=== PATIENT | male | born 1955 | race Caucasian/White ===

== ENCOUNTER → 2023-03-20 | Outpatient (CLI) | payer OTHER ==
[2023-03-20 09:57] LABS: African American GFR (CKD) >90 (>60 ml/min/1.73 sqM); Blood Urea Nitrogen 14 mg/dL (9-20); Non-African American GFR(CKD) >90 (>60 ml/min/1.73 sqM)
--- NOTE | 2023-03-20 12:34 | CT ---
EXAMINATION TYPE: CT abdomen pelvis w con DATE OF EXAM: 03/20/2023 COMPARISON: None. HISTORY: irregular bowel changes CT DLP: 1486 mGycm, Automated Exposure Control for Dose Reduction was Utilized. CONTRAST: CT scan of the abdomen and pelvis is performed with oral and with IV Contrast, patient injected with 100 mL of Isovue 300. FINDINGS: LUNG BASES: No significant abnormality is appreciated. LIVER/GB: No significant abnormality is appreciated. PANCREAS: No significant abnormality is seen. SPLEEN: No significant abnormality is seen. ADRENALS: No significant abnormality is seen. KIDNEYS: Symmetric cortical medullary uptake and excretion without hydronephrosis seen bilaterally. BOWEL: Oral contrast reaches level of the proximal transverse colon. No suspicious small or large bow el dilatation. Normal contrast-filled appendix. Slightly redundant sigmoid colon PROSTATE/SEMINAL VESICLES: Mildly enlarged prostate. Correlate for underlying BPH. LYMPH NODES: No greater than 1cm abdominal or pelvic lymph nodes are appreciated. OSSEOUS STRUCTURES: Moderate disc space narrowing with vacuum disc phenomenon L4-L5 and L5-S1 levels. Bridging osteophytes anteriorly near the thoracolumbar junction. Facet arthropathy lower lumbar leve ls. Moderate axial joint space loss and acetabular spurring of both hips OTHER: Moderate calcified plaque of the aorta extends into branch vessels. IMPRESSION: No bowel obstruction. No acute findings are evident.
--- NOTE | 2023-03-20 14:29 | NM ---
EXAMINATION TYPE: NM bone scan whole body DATE OF EXAM: 03/20/2023 1:39 PM CLINICAL INDICATION:Male, 67 years old with history of C61; COMPARISON: CT abdomen pelvis 03/20/2023 TECHNIQUE: Intravenous administration 22.8 mCi Tc 99m MDP followed by multiple scintigraphic images o f the appendicular and axial skeleton. Small [id number] chest abdomen and pelvis were obtained. Images acquired 4 hours post injection. FINDINGS: No abnormal uptake is identified within the appendicular or axial skeleton to suggest metastatic dise ase. There is increased uptake within the bilateral shoulder, left sternoclavicular, and sacroiliac joints consistent with degenerative changes. No other photopenic areas or areas of increased activity are identified. Physiologic radiotracer activity is demonstrated in the kidneys and bladder. IMPRESSION: 1. Nothing to suggest metastatic disease.
== END | disposition home or self-care (01) ==
LOC: RADNMMAIN 08:27
PROVIDERS: ATTEND Urology
DX: C61 Malignant neoplasm of prostate (principal)
CPT/HCPCS: 36415; 74177; 78306; 82565; 84520

== ENCOUNTER → 2023-04-25 | Outpatient (CLI) | payer OTHER ==
--- NOTE | 2023-04-25 10:27 | XR ---
EXAMINATION TYPE: XR chest 2V DATE OF EXAM: 04/25/2023 10:21 AM COMPARISON: None TECHNIQUE: XR chest 2V Frontal and lateral views of the chest. CLINICAL INDICATION:Male, 68 years old with history of Z01.818 ENCOUNTER FOR OTHER PREPROCEDURAL EXAM INATION; FINDINGS: Lungs/Pleura: There is no evidence of pleural effusion, focal consolidation, or pneumothorax. Questio nable 2.5 cm right midlung nodular density only visualized on the frontal view. Right mid to lower carlos ng linear scarring and/or atelectasis. Pulmonary vascularity: Unremarkable. Heart/mediastinum: Cardiomediastinal silhouette is unremarkable. Musculoskeletal: No acute osseous pathology. IMPRESSION: 1. No acute cardiopulmonary disease/process. 2. Questionable 2.5 cm right midlung nodular density only visualized on the frontal view. Further ev aluation with CT chest is recommended.
[2023-04-25 17:03] LABS: Basophils # (A) 0.07 X 10*3/uL (0.00-0.10); Basophils % (A) 0.9 %; Eosinophils # (A) 0.18 X 10*3/uL (0.04-0.35); Eosinophils % (A) 2.4 %; HCT 43.8 % (39.6-50.0); HGB 13.8 d/dL (12.0-15.0); Lymphocytes # (A) 1.64 X 10*3/uL (0.90-5.00); Lymphocytes % (A) 21.6 %; MCHC 31.5 d/dL (32.0-37.0); MCV 98.4 FL (80.0-97.0); Mean Platelet Volume 8.7 FL (9.5-12.2); Monocytes # (A) 0.62 X 10*3/uL (0.20-1.00); Monocytes % (A) 8.1 %; NRBC Per 100 WBC 0 X 10*3/uL (0.00-0.01); Neutrophils # (A) 5.08 X 10*3/uL (1.80-7.70); Neutrophils % (A) 66.7 %; Platelet Count 328 X 10*3/uL (140-440); RBC 4.45 X 10*6/uL (4.40-5.60); RDW 13.5 % (11.5-14.5); WBC 7.61 X 10*3/uL (4.50-10.00)
[2023-04-25 17:08] LABS: BUN/Creat Ratio 23.29 Ratio (12.00-20.00); Blood Urea Nitrogen 16.3 mg/dL (9.0-27.0); Calcium 9.6 mg/dL (8.7-10.3); Carbon Dioxide 30.2 mmol/L (21.6-31.8); Chloride 103 mmol/L (96-109); Glucose 88 mg/dL (70-110); Potassium 4.4 mmol/L (3.5-5.5); Sodium 143 mmol/L (135-145)
[2023-04-25 17:45] LABS: Appearance,Urine Cloudy (Clear); Bilirubin,Urine Small (Negative); Blood,Urine Trace (Negative); Color,Urine Dark Yellow (Yellow); Ketones,Urine Trace (Negative); Nitrite,Urine Negative (Negative); PH, Urine 6.5; Specific Gravity,Urine 1.026 (1.001-1.030)
[2023-04-25 17:46] LABS: Bacteria,Urine None Seen (None Seen)
== END | disposition home or self-care (01) ==
LOC: LABPAT 09:20
PROVIDERS: ATTEND Urology
DX: Z01.818 Encounter for other preprocedural examination (principal); C61 Malignant neoplasm of prostate; R31.29 Other microscopic hematuria
CPT/HCPCS: 71046; 80048; 81001; 85025; 87086

== ENCOUNTER 2023-05-02 10:00 | Day surgery (SDC) | payer OTHER ==
--- NOTE | 2023-05-02 07:49 | P.HPIHPCON ---
History of Present Illness H&P Date: 05/01/23 Chief Complaint: Prostate cancer This is a 68-year-old male with history of high risk [facility] 7(4+3) prostate cancer. Option of a robotic radical prostatectomy versus radiation therapy was discussed with him in detail. He agreed to proceed with a robotic radical prostatectomy. Aware of the risk which includes but not limited to bleeding, infection, urinary incontinence, erectile dysfunction, injury to nearby organs. Risk of anesthesia was also discussed with him. Aware of risk of cancer recurrence and potential of needing additional treatments. Discussed with him higher risk of cancer recurrence given his high volume disease. Discussed also the need a postoperative surveillance. He understood all the risk and agreed to proceed Consent for Procedure: I have explained the operation/procedure to the patient, including the risks, benefits, side effects, alternative therapies (including not receiving the proposed treatment or service), the likelihood of the patient achieving his/her goals, and potential recuperation problems for the procedure/sedation/analgesia, as well as any blood products, if indicated. I also explained to the patient the risks, benefits and side effects of the alternatives, as well as the risks related to not receiving the proposed procedure, care, treatment, or services. Past Medical History Past Medical History: Cancer, COPD, Hyperlipidemia, Hypertension, Osteoarthritis (OA), Prostate Disorder Additional Past Medical History / Comment(s): new hx. prostate cancer, colitis, hospitalized 2020 w/COPD exacerbation, was d/c w/oxygen but hasn't used for couple years History of Any Multi-Drug Resistant Organisms: None Reported Additional Past Surgical History / Comment(s): cataracts removed, colonoscopy Past Anesthesia/Blood Transfusion Reactions: Previous Problems w/ Anesthesia Additional Past Anesthesia/Blood Transfusion Reaction / Comment(s): woke during cataract surg. Smoking Status: Former smoker - Past Family History Mother Family Medical History: Cancer Medications and Allergies Home Medications Medication Instructions Recorded Confirmed Type Atorvastatin Calcium 10 mg PO HS 04/25/23 04/25/23 History Losartan Potassium [Cozaar] 25 mg PO DAILY 04/25/23 04/25/23 History Multivitamins, Thera [Multivitamin 1 tab PO DAILY 04/25/23 04/25/23 History (formulary)] sulfaSALAzine [Sulfasalazine] 1,000 mg PO BID 04/25/23 04/25/23 History Allergies Allergy/AdvReac Type Severity Reaction Status Date / Time No Known Allergies Allergy Verified 04/25/23 10:36 Surgical - Exam - General no distress, no pain - Eyes normal ocular movement, no pale - ENT normal nares, normal mucosa - Respiratory normal expansion, normal respiratory effort - Abdomen Abdomen: soft, non tender - Psychiatric oriented to time, oriented to person, oriented to place Assessment and Plan Assessment: OR for Robotic radical prostatectomy and pelvic lymph node dissection
[~2023-05-02 10:00] MED LIST: HEPARIN SODIUM,PORCINE/PF 5,000 UNIT/0.5 ML SYRINGE SQ PRN
[2023-05-02] MEDS ORDERED: LIDOCAINE 1% (10MG/ML) FOR IV START INTRADERMA PRN (10:05)
[2023-05-02] MEDS ORDERED: LACTATED RINGERS 1,000 ML IV SCH (10:05)
[2023-05-02] MEDS ORDERED: ONDANSETRON 4 MG/2 ML VIAL IVP ONE (10:05)
[2023-05-02] MEDS ORDERED: DEXAMETHASONE SOD PHOSPHATE 4 MG/ML 1 ML VIAL IV ONE (10:05)
[2023-05-02] MEDS ORDERED: droPERidol 5 MG/2 ML VIAL IVP ONE (10:05)
[2023-05-02] MEDS ORDERED: MIDAZOLAM 2 MG/2 ML VIAL IVP ONE (11:09)
--- NOTE | 2023-05-02 11:24 | P.ANPRN ---
Procedure Note - Anesthesia - Nerve Block Performed Bilateral Erector Spinae Single Time Out Performed: Yes Date of Procedure: 05/02/23 Procedure Start Time: :08 Procedure Stop Time: :17 Location of Patient: PreOp Indication: Acute Post-Operative Pain, Requested by Surgeon Specifically requested for management of pain by DrSanchez: Haresh Mccormick Sedation Type: Sedate with meaningful contact maintained Preparation: Sterile Prep Position: Prone Needle Types: Pajunk Needle Gauge: 21 Ultrasound used to visualize needle placement: Yes Ultrasound used to observe medication spread: Yes Injectate: 0.5% Ropivacaine (see comment for volume) (30 mL + Decadron 8 mg) Blood Aspirated: No Pain Paresthesia on Injection Noted: No Resistance on Injection: Normal Image Stored and Saved: Yes Events: Uneventful and Well Tolerated
[2023-05-02] MEDS ORDERED: ONDANSETRON 4 MG/2 ML VIAL IVP PRN (11:41)
[2023-05-02] MEDS ORDERED: HYDROcodone/APAP 5-325MG 1 EACH TAB PO PRN (11:42)
[2023-05-02] MEDS ORDERED: ROPIVACAINE 5 MG/ML 30 ML VIAL ONE (12:30)
[2023-05-02] MEDS ORDERED: MIDAZOLAM 2 MG/2 ML VIAL ONE (12:30)
[2023-05-02] MEDS ORDERED: SUCCINYLCHOLINE CHLORIDE 200 MG/10 ML VIAL IV ONE (12:30)
[2023-05-02] MEDS ORDERED: fentaNYL (PF) 50 MCG/ML 2 ML AMP ONE (12:30)
[2023-05-02] MEDS ORDERED: GLYCOPYRROLATE 0.2 MG/ML 2 ML VIAL ONE (12:30)
[2023-05-02] MEDS ORDERED: SODIUM CHLORIDE 0.9% (PF) 10 ML VIAL ONE (12:30)
[2023-05-02] MEDS ORDERED: NEOSTIGMINE 1 MG/ML 10 ML VIAL ONE (12:30)
[2023-05-02] MEDS ORDERED: PHENYLEPHRINE-0.9% NACL SYG 1,000 MCG/10 ML SYRINGE ONE (12:30)
[2023-05-02] MEDS ORDERED: ONDANSETRON 4 MG/2 ML VIAL ONE (12:30)
[2023-05-02] MEDS ORDERED: PROPOFOL 10 MG/ML 20 ML VIAL IV ONE (12:30)
[2023-05-02] MEDS ORDERED: KETAMINE 10 MG/ML 20 ML VIAL ONE (12:30)
[2023-05-02] MEDS ORDERED: DEXAMETHASONE SOD PHOSPHATE 4 MG/ML 1 ML VIAL ONE (12:30)
[2023-05-02] MEDS ORDERED: LIDOCAINE 2% INJ 20 MG/ML (2 ML VIAL) ONE (12:30)
[2023-05-02] MEDS ORDERED: ROCURONIUM 10 MG/ML (5 ML VIAL) IV ONE (12:30)
[2023-05-02] MEDS ORDERED: BUPIVACAINE (PF) 0.25% 30 ML VIAL SQ ONE ×3 (13:18→16:09)
[2023-05-02] MEDS ORDERED: LACTATED RINGERS 1,000 ML IV ONE (16:08)
--- NOTE | 2023-05-02 16:20 | P.OP ---
Date of Procedure: 05/02/23 Preoperative Diagnosis: prostate cancer Postoperative Diagnosis: same Procedure(s) Performed: Robotic-assisted radical prostatectomy with pelvic lymph node dissection Implants: none Anesthesia: NADEENA Surgeon: Haresh Mccormick Hydrology Teacher #1: Say Payne Estimated Blood Loss (ml): 150 Pathology: other (Prostate, bilateral seminal vesicle, bilateral pelvic lymph nodes,, bladder neck margin) Condition: stable Disposition: PACU Indications for Procedure: This is a 68-year-old male with history of high risk [facility] 7(4+3) prostate cancer. Option of a robotic radical prostatectomy versus radiation therapy was discussed with him in detail. He agreed to proceed with a robotic radical prostatectomy. Aware of the risk which includes but not limited to bleeding, infection, urinary incontinence, erectile dysfunction, injury to nearby organs. Risk of anesthesia was also discussed with him. Aware of risk of cancer recurrence and potential of needing additional treatments. Discussed with him higher risk of cancer recurrence given his high volume disease. Discussed also the need a postoperative surveillance. He understood all the risk and agreed to proceed Operative Findings: Multiple enlarged pelvic lymph nodes, evidence of extraprostatic extension invasion into the rectum along the right apex. evidence of bladder neck invasion Description of Procedure: After preoperative antibiotics were started, the patient was taken to the operating room. Anesthesia was induced and the patient was placed in a supine position, with adequate padding of the pressure points, shoulders, back, legs and arms. He was then prepped and draped in the standard fashion. A critical pause was performed using two patient identifiers. A 16F batista catheter was placed to gravity drainage. A pneumo-peritoneum was created with placement of a Veress needle to 20 mm Hg without complication, and a 8 Fr trocar was placed above the umbillicus. Under direct vision a 8mm robotic ports was placed lateral to each rectus slightly below the camera port. The left iliac fossa 8mm port was placed. The right refinery operator assistant right iliac fossa 12mm port and right paramedian 5mm portwere placed. After the patient was placed in the trendelenberg position, the robot was then docked to the 8mm robotic ports and then each robotic arm and tower was checked in relation to the patient's legs and hands to avoid inadvertent compression. The peritoneal cavity was inspected. An inverted U-shaped incision began laterally to the left medial umbilical ligament and extended high across the midline to the right umbilical ligament. The limbs of the "U" extended to the level of the vasa on both sides. We next developed the preperitoneal space and the space of Retzius. Cautery was used to dissected the bladder away from the prostate. After the anterior bladder neck was incised and the bladder entered the the posterior bladder neck was exposed and the ureteral orifces identified. There was evidence of bladder neck invasion, further tissue was resected and sent as a bladder neck margin of note the resection was carried down to the trigone and further tissue could not be resected given the risk of injury to the ureteral orifice ease The posterior bladder neck was then incised and dissected away from the prostate. Of note the prostate was fairly adherent to the rectum, there was significant amount of inflammatory fat stuck to the prostate The vas and the seminal vesicles were now exposed and dissected to their insertions into the prostate and were not spared. The posterior layer of the Denonvillier's fascia was incised to enter rupinder the plane between prostate and perirectal fat. Along the right apex there was evidence of extension of prostate cancer into the rectum. The prostate was dissected sharply off of the rectum, there was no entry into the rectum. Each lateral pedicle was controlled with clips and cautery for hemostasis. No nerve preservation was performed . The puboprostatic ligament was incised where it inserted into the apex of the prostate and a plane between urethra and dorsal venous complex developed to expose the anterior urethral surface. The anterior wall of the urethra was transected with the cut setting a few millimeters distal to the apex of the prostate. The dorsal vein was ligated using 3-0 V lock extended pelivic lymph node dissection was performed bilateral obturator and external iliac lymph node packets were carefully dissected after careful visualization of the hypogastric artery and obturator nerve. There was careful attention paid to hemostasis with judicious use of cautery. The bilateral ureter was identified and not injured there were multiple enlarged pelvic lymph nodes. The area along where there was evidence of rectal invasion was reinforced using 2-0 Vicryl in figure of eight fashion The urethrovesical anastomosis was performed . the posterior denovillers was reapproximated using 3-0 V lock. A 9and 9 inch 3-0 V-Lock suture was used to anastomose the urethra and bladder, starting at the 6:00 posterior position. Mucosa was secured in every stitch, to ensure a mucosa to mucosa anastomosis. The stitch was regularly cinched and the anastomosis tightened. Care was taken to not violate the ureteral orifices. The Batista catheter was advanced, the bladder filled, and the anastomosis was tested, as described above. Anastomsis was watertight at 150 mL The periumbilical fascia was closed with 1-0-PDS suture in running fashion. All ports were closed with a subcuticular 4-0 monocryl and Dermabond. Sponge, instrument, and needle counts were correct at the end of the case x2. All specimens including prostate and lymph nodes were sent to pathology for diagnosis and will be available in a week.
[2023-05-02] MEDS: HYDROmorphone 0.5 MG/0.5 ML SYRINGE IVP PRN ×2 (17:04→17:12)
[2023-05-02] MEDS: HYDROmorphone 1 MG/ML 1 ML SYRINGE IVP PRN (18:06)
[2023-05-02] MEDS: KETOROLAC 15 MG/ML 1 ML VIAL IVP SCH ×2 (18:22→19:52)
[2023-05-02] MEDS: HEPARIN SODIUM,PORCINE/PF 5,000 UNIT/0.5 ML SYRINGE SQ SCH (18:22)
[2023-05-02] MEDS: D5-0.45% NACL WITH KCL 20MEQ/L 1,000 ML IV SCH (18:27)
[2023-05-02] MEDS: ATORVASTATIN 10 MG TAB PO SCH (21:41)
[2023-05-03] MEDS: HEPARIN SODIUM,PORCINE/PF 5,000 UNIT/0.5 ML SYRINGE SQ SCH ×3 (00:22→17:13)
[2023-05-03] MEDS: HYDROmorphone 1 MG/ML 1 ML SYRINGE IVP PRN (00:40)
[2023-05-03] MEDS: KETOROLAC 15 MG/ML 1 ML VIAL IVP SCH ×4 (02:15→18:52)
[2023-05-03] MEDS: D5-0.45% NACL WITH KCL 20MEQ/L 1,000 ML IV SCH ×3 (03:33→18:55)
[2023-05-03] MEDS: LOSARTAN 25 MG TAB PO SCH (08:11)
[2023-05-03] MEDS: ATORVASTATIN 10 MG TAB PO SCH (21:54)
[2023-05-04] MEDS: KETOROLAC 15 MG/ML 1 ML VIAL IVP SCH ×2 (01:17→08:44)
[2023-05-04] MEDS: HEPARIN SODIUM,PORCINE/PF 5,000 UNIT/0.5 ML SYRINGE SQ SCH ×2 (01:18→08:45)
[2023-05-04] MEDS: D5-0.45% NACL WITH KCL 20MEQ/L 1,000 ML IV SCH ×2 (03:56→11:55)
[2023-05-04 07:54] VITALS: BP 123/79; PULSE 81; RESP 18; TEMP 98.3
[2023-05-04] MEDS: LOSARTAN 25 MG TAB PO SCH (08:44)
--- NOTE | 2023-05-04 09:05 | P.DS ---
Providers Attending physician: Haresh Mccormick MD Primary care physician: Stated None Hospital Course: The patient underwent an uneventful tavia assisted rad prostatectomy 05/02/[address] mccormick. His post op course was uneventful. He will be d/cd home with the lynne and fu with Dr mccormick in 10 days for cath removal and path report is pending Patient Condition at Discharge: Good Plan - Discharge Summary Discharge Rx Participant: Yes New Discharge Prescriptions: No Action Losartan Potassium [Cozaar] 25 mg PO DAILY Atorvastatin Calcium 10 mg PO HS Multivitamins, Thera [Multivitamin (formulary)] 1 tab PO DAILY sulfaSALAzine [Sulfasalazine] 1,000 mg PO BID Discharge Medication List Atorvastatin Calcium 10 mg PO HS 04/25/23 [History] Losartan Potassium [Cozaar] 25 mg PO DAILY 04/25/23 [History] Multivitamins, Thera [Multivitamin (formulary)] 1 tab PO DAILY 04/25/23 [History] sulfaSALAzine [Sulfasalazine] 1,000 mg PO BID 04/25/23 [History] Follow up Appointment(s)/Referral(s): Haresh Mccormick MD [STAFF PHYSICIAN] - 10 Days (home with lynne and alf appoinment that office made for patient post op)
== END 2023-05-04 14:22 | disposition home or self-care (01) ==
LOC: OR 10:00 → 5NMEDONC 16:22 → OR 05-04 14:22
PROVIDERS: ATTEND Urology
DX: C61 Malignant neoplasm of prostate (principal); G89.18 Other acute postprocedural pain; I10 Essential (primary) hypertension; E78.5 Hyperlipidemia, unspecified; J44.1 Chronic obstructive pulmonary disease with (acute) exacerbation; F12.90 Cannabis use, unspecified, uncomplicated; M19.90 Unspecified osteoarthritis, unspecified site; Z85.46 Personal history of malignant neoplasm of prostate; Z79.899 Other long term (current) drug therapy; Z87.19 Personal history of other diseases of the digestive system; Z87.891 Personal history of nicotine dependence
CPT/HCPCS: 38571; 55866; 64999; S2900; 86850; 86900; 86901

== ENCOUNTER → 2023-05-31 | Outpatient (CLI) | payer MEDICARE ==
[2023-05-31 07:07] LABS: African American GFR (CKD) >90 (>60 ml/min/1.73 sqM); Blood Urea Nitrogen 19 mg/dL (9-20); Non-African American GFR(CKD) 85 (>60 ml/min/1.73 sqM)
--- NOTE | 2023-05-31 08:33 | CT ---
EXAMINATION TYPE: CT chest w con DATE OF EXAM: 05/31/2023 COMPARISON: Radiograph 04/25/2023 HISTORY: 68-year-old male C61, Prostate Cancer TECHNIQUE: Contiguous axial scanning of the chest after the administration of 100 ml mL of Isovue 300 . Coronal/sagittal reconstructions performed. CT DLP: 378.20mGycm. Automatic exposure control utilized for a dose reduction. FINDINGS: 1 cm hypodense nodule left lobe of the thyroid gland. Heart normal size without pericardial effusion. LAD and RCA coronary calcifications are present. Mild atherosclerotic arch calcifications with the majority also branching anatomy. Ectatic descending thoracic aorta 3.1 cm. Borderline sized 1.0 cm lower right paratracheal lymph node. No thoracic lymphadenopathy otherwise se en. Mild bilateral gynecomastia. Mild diffuse bronchial wall thickening. Some strandy areas of scarring or atelectasis in the lungs. There is a 2.5 cm slightly spiculated mass lateral right midlung. Moderate centrilobular emphysema es pecially in the upper lungs Nonspecific 4 mm medial left upper lobe pulmonary nodule, axial image 15. Small hiatal hernia. Levoconvex curvature upper lumbar spine. Moderate to advanced degenerative changes especially mid to lower thoracic spine. [facility] mid to lower t horacic spine. Additional bridging anterior endplate spondylosis T12-L2 levels. Grade 1 anterolisthes is T11-T12. IMPRESSION: 1. COPD with moderate emphysema. 2. A slightly spiculated 2.5 cm lateral right midlung mass. Correlate for potential primary lung canc er. A borderline enlarged 1 cm low right paratracheal lymph node is nonspecific and may be reactive. Consider further PET CT evaluation. 3. Additional nonspecific 4 mm medial left upper lobe pulmonary nodule can be reassessed at follow-up . 4. 1 cm left thyroid lobe nodule. Thyroid ultrasound to further evaluate. 5. Coronary artery disease with LAD and RCA coronary artery calcifications. 6. Small hiatal hernia.
== END | disposition home or self-care (01) ==
LOC: RADCTMAIN 06:03
PROVIDERS: ATTEND Urology
DX: C61 Malignant neoplasm of prostate (principal); J43.2 Centrilobular emphysema; I25.10 Atherosclerotic heart disease of native coronary artery without angina pectoris; K44.9 Diaphragmatic hernia without obstruction or gangrene; R91.1 Solitary pulmonary nodule
CPT/HCPCS: 82565; 84520; 71260; 36415; Q9967

== ENCOUNTER → 2023-07-13 | Outpatient (CLI) | payer OTHER ==
--- NOTE | 2023-07-14 22:19 | PE ---
EXAMINATION TYPE: PET CT fusion skull to thigh DATE OF EXAM: 07/13/2023 CLINICAL INDICATION:Male, 68 years old with history of R91.1 SOLITARY PULMONARY NODULE; TECHNIQUE: Following the intravenous administration of 11.75 mCi of F-18 FDG, whole body images are performed from the skull base to the midthigh. Images are reviewed on the computer in the coronal, axial, and sagittal planes. Reconstructed rotating images are created on independent workstation and reviewed on the computer. A non-contrast CT is performed in conjunction with the PET scan. Glucose level 95 mg/dL CT DLP: 495 mGycm, Automated exposure control for dose reduction was used. COMPARISON: CT 05/31/2023, 03/20/2023, PET/CT None, FINDINGS: Mediastinal SUV mean is 1.7. Hepatic parenchyma SUV mean is 2.5. SKULL BASE AND NECK: No suspicious radiotracer activity. CHEST, MEDIASTINUM, AND HILAR REGION: * Right upper lung pulmonary nodule measuring 2.5 x 2.2 cm Max SUV 11.3. * Right low paratracheal lymph node measuring 11 mm in short axis max SUV 2.5. * No additional suspicious FDG activity visualized. * ABDOMEN AND PELVIS: No suspicious radiotracer activity. MUSCULOSKELETAL STRUCTURES: No suspicious radiotracer activity. OTHER CT: Atherosclerosis of the arterial vasculature including the coronary arteries. Fat-containing buccal hernia. Moderate amount of stool within the right colon. The appendix appears normal. The pro state gland appears surgically absent. Moderate paraseptal and centrilobular emphysema changes. Moder ate coronary artery calcifications. Small hiatal hernia. IMPRESSION: Right upper lung pulmonary nodule measuring up to 2.5 cm with FDG uptake compatible with malignancy. Right low paratracheal lymph node with mildly elevated FDG activity which is suspicious for early met astatic disease. No additional lymphadenopathy identified.
== END | disposition home or self-care (01) ==
LOC: RADPETMAIN 08:20
PROVIDERS: ATTEND Internal Medicine Critical Care Medicine
DX: R91.1 Solitary pulmonary nodule (principal)
CPT/HCPCS: 78815; A9552

== ENCOUNTER 2023-08-01 10:36 | Day surgery (SDC) | payer OTHER ==
[2023-07-29 12:38] VITALS: BMI 26.6
[~2023-08-01 10:36] MED LIST changes: +DEXAMETHASONE SOD PHOSPHATE 4 MG/ML 1 ML VIAL IV ONE; -HEPARIN SODIUM,PORCINE/PF 5,000 UNIT/0.5 ML SYRINGE SQ PRN; +LACTATED RINGERS 1,000 ML IV SCH; +LIDOCAINE 1% (10MG/ML) FOR IV START INTRADERMA PRN; +ONDANSETRON 4 MG/2 ML VIAL IVP ONE
--- NOTE | 2023-08-01 12:23 | CT ---
EXAMINATION TYPE: CT chest wo con DATE OF EXAM: 08/01/2023 COMPARISON: May 31, 2023 HISTORY: ion CT DLP: [address] of the chest was performed with lung and mediastinal window settings submitted. The la ck of contrast limits evaluation of the vascular, mediastinal and parenchymal structures including th e upper abdomen. LUNGS: Enlarging spiculated mass right upper lobe at the level of the right hilum which currently neymar sures 2.9 x 2.1 cm versus maximal measurement of 2.5 cm previously. No additional nodules seen. Upper lobe paraseptal emphysema seen greatest within the right upper lobe. MEDIASTINUM/PAULINA: Thoracic aorta is of normal caliber with limited evaluation given lack of contrast . The heart is not enlarged. No evidence for mediastinal mass. 1.2 cm enlarged lymph node lower rig ht paratracheal region. No adenopathy greater than 1 cm about the right hilum. Small hiatal hernia. UPPER ABDOMEN: No significant abnormality is seen. OTHER: No significant other abnormality. IMPRESSION: 1. Enlarging spiculated mass right upper lobe at the level of the right hilum which currently measur es 2.9 x 2.1 cm versus maximal measurement of 2.5 cm previously.
[2023-08-01] MEDS ORDERED: SUCCINYLCHOLINE CHLORIDE 200 MG/10 ML VIAL IV ONE (12:51)
[2023-08-01] MEDS ORDERED: NEOSTIGMINE 1 MG/ML 10 ML VIAL ONE (12:51)
[2023-08-01] MEDS ORDERED: PHENYLEPHRINE-0.9% NACL SYG 1,000 MCG/10 ML SYRINGE ONE (12:51)
[2023-08-01] MEDS ORDERED: PROPOFOL 10 MG/ML 20 ML VIAL IV ONE (12:51)
[2023-08-01] MEDS ORDERED: LIDOCAINE 1% INJ 10MG/ML (20 ML MDV) ONE (12:51)
[2023-08-01] MEDS ORDERED: GLYCOPYRROLATE 0.2 MG/ML 2 ML VIAL ONE (12:51)
[2023-08-01] MEDS ORDERED: MIDAZOLAM 2 MG/2 ML VIAL ONE (12:51)
[2023-08-01] MEDS ORDERED: fentaNYL (PF) 50 MCG/ML 2 ML AMP ONE (12:51)
[2023-08-01] MEDS ORDERED: ROCURONIUM 10 MG/ML (5 ML VIAL) IV ONE (12:51)
[2023-08-01 14:13] VITALS: RESP 16; TEMP 97.4
--- NOTE | 2023-08-01 14:23 | P.PCN ---
Date of Procedure: 08/01/23 Operative Findings: Preoperative Diagnosis: Right upper lobe mass Right hilar lymph node Postoperative Diagnosis: Right upper lobe mass Right hilar LN, 4R Procedure(s) Performed: Flexible bronchoscopy Robotic-assisted bronchoscopy and addition to radial ultrasound evaluation of the pulmonary mass Robotic-assisted transbronchial needle aspirate, transbronchial biopsies, transbronchial brushing of the right upper lobe mass iin addition to a bronchioloalveolar lavage EBUS TBNA of a station 4 [address] Anesthesia: NADEENA Surgeon: Myla Dinh Estimated Blood Loss (ml): 0 Pathology: other Condition: stable Disposition: same day Operative Findings: A physical exam was performed. Informed consent was obtained from the patient after explaining all the risks (pneumothorax, life threatening bleeding, infection and adverse effects due to medications), benefits and alternatives to the procedure which the patient appeared to understand and so stated. The patient was connected to the monitoring devices. General anesthesia was induced and the patient was intubated by anesthesia. A final timeout was performed and the procedure confirmed by the attending staff bronchoscopist. The bronchoscope was inserted and the airway examined. The flexible bronchoscope was removed and the robotic bronchoscope was inserted. Registration was completed. I next guided the robotic bronchoscope using the navigation system into the right upper lobe anterior segment. Once in proper position, the bronchoscope was frozen. The radial EBUS probe was placed through the bronchoscope and confirmed abnormal u/s images vs normal lung. A needle was placed through the working channel and under fluoroscopic guidance, we sampled the area thought to have the mass twice. We then used a cloud biopsy pattern with ultrasound confirmation for 2 additional passes with the needle. U/S evaluation was then used to reconfirm location. Forceps were next introduced through working channel and extended the appropriate distance and 3 transbronchial biopsies were performed using fluoroscopic guidance. The u/s probe was then reinserted to confirm location. When confirmed this process was repeated for a total of 6 transbronchial biopsies. After reassessment with EBUS, a brush was placed through the extendable working channel for 1 pass with fluoroscopic guidance. U/S evaluation was then used to confirm location. 40ml of saline was then instilled into the area of the lesion. The robotic bronchoscope was removed and the airway inspected with a flexible bronchoscope and 10 ml of effluent from the BAL was collected. The aspirate was bloody and ultimately declotted and based on that, the sample was discarded. Fluoroscopic check for pneumothorax was negative upon completion of the procedure. There was 0 ml blood loss with the procedure. Following that, the endobronchial ultrasound was inserted for mediastinal lymph node evaluation. A complete examination is grossly patient's was done. The patient was found to have a 11 x 8 mm subcarinal lymph node. Using a 22-gauge needle, transbronchial needle aspirate of the subcarinal station 4R lymph node was done. A total of 2 passes were obtained without any complications. Endobronchial ultrasound was removed. Flex. bronchoscope was inserted and regular suctioning was done. At the completion of the procedure, no residual secretions or bloody material within the airway. The bronchoscope was removed. The patient was extubated. FINDINGS: 1.The airways appeared normal 2 Successful navigation, ultrasonographic identification, and biopsies of right upper lobe pulmonary mass 3.The the radial ultrasound view was (Concentric/Eccentric)}. 4 subcarinal lymph node, station 4 R measuring 11 x 8 mm in size. RECOMMENDATIONS: Await pathology and cytology results The referring physician will be alerted to the results when available. The patient was advised to follow up with the referring physician with the biopsy results Patient will be called with results.
[2023-08-01 15:02] VITALS: BP 150/76; PULSE 66
--- NOTE | 2023-08-01 15:04 | XR ---
EXAMINATION TYPE: XR chest 1V DATE OF EXAM: 08/01/2023 COMPARISON: 04/25/2023 HISTORY: 68-year-old male post biopsy TECHNIQUE: Single frontal view of the chest is obtained. FINDINGS: Heart upper limits of normal in size. Hyperinflation. Some strandy density at the right lo wer lung could represent atelectasis or scarring. The nodular density at the periphery of the right m idlung is slightly larger at 3.2 cm now versus 2.5 cm back in 04/25/2023. No appreciable pneumothorax or pleural effusion. IMPRESSION: COPD with slight interval increase in size of the right mid lung nodule at 3.2 cm versus 2.5 cm on . No appreciable pneumothorax.
--- NOTE | 2023-08-01 19:11 | FL ---
EXAMINATION TYPE: FL bronchoscopy DATE OF EXAM: 08/01/2023 FLUOROSCOPY fl time 39.5 dap 1.4166 mGycm2 Right upper lobe bx with Dr. Dinh. bronch with ion 4 images provided
== END 2023-08-01 15:27 | disposition home or self-care (01) ==
LOC: ORWHC2ENDO 10:36
PROVIDERS: ATTEND Internal Medicine Critical Care Medicine
DX: C34.11 Malignant neoplasm of upper lobe, right bronchus or lung (principal); J44.9 Chronic obstructive pulmonary disease, unspecified; I10 Essential (primary) hypertension; E78.5 Hyperlipidemia, unspecified; K52.9 Noninfective gastroenteritis and colitis, unspecified; F12.90 Cannabis use, unspecified, uncomplicated; Z79.51 Long term (current) use of inhaled steroids; Z79.899 Other long term (current) drug therapy; Z85.46 Personal history of malignant neoplasm of prostate
CPT/HCPCS: 88305; 88173; 88342; 87070; 87205; 87116; 87102; 87206; 71045; 71250; 31628; 31633; 31623; 31624; 31652; 31654; J2250; J0330; J1100; J2710; J2405; J2001; J3010; J2704; J2371; S2900

== ENCOUNTER → 2023-08-13 | Outpatient (CLI) | payer MEDICARE ==
--- NOTE | 2023-08-13 15:07 | US ---
EXAMINATION TYPE: US thyroid st tissue head/neck DATE OF EXAM: 08/13/2023 COMPARISON: CT 05/31/2023 CLINICAL INDICATION: Male, 68 years old with history of E04.1 NONTOXIC SINGLE THYROID NODULE; Nodule. GLAND SIZE: Right Lobe: 6.6 x 1.9 x 2.8 cm Overall Parenchyma: heterogenous Left Lobe: 6.2 x 2.4 x 2.6 cm Overall Parenchyma: heterogenous Isthmus Thickness: 0.33 cm NODULES RIGHT: # of nodules measured on right: 0 LEFT: # of nodules measured on left: 2 1. 1.7 X 1.5 x 1.2 cm, upper mid, mixed cystic and solid, hypoechoic nodule, which is wider than ta ll, with smooth margins, with echogenic foci. TR 4 Prior size: no prior 2. 1.8 X 1.6 x 1.4 cm, mid mid, solid or almost completely solid, isoechoic nodule, which is wider than tall, with smooth margins, with echogenic foci. Prior size: no prior ISTHMUS: # of nodules measured in the isthmus: 0 Bilateral neck scanned, no evidence of lymphadenopathy. IMPRESSION: 1. Moderately suspicious nodule left lobe thyroid. Fine-needle aspiration recommended. 2017 ACR TI-RADS LEVEL: TR-RADS 4 - Moderately Suspicious: Follow if > 1 cm, FNA if > 1.5 cm *Highest TI-RADS level nodule reported
== END | disposition home or self-care (01) ==
LOC: RADUSWWP 13:10
PROVIDERS: ATTEND Family Medicine
DX: E04.2 Nontoxic multinodular goiter (principal)
CPT/HCPCS: 76536

== ENCOUNTER → 2023-08-14 | Outpatient (CLI) | payer MEDICARE | END | disposition home or self-care (01) | LOC: LABPAT 08:33 | PROVIDERS: ATTEND Thoracic Surgery (Cardiothoracic Vascular Surgery) | DX: Z01.812 Encounter for preprocedural laboratory examination (principal); R59.0 Localized enlarged lymph nodes | CPT/HCPCS: 85730 ==

== ENCOUNTER 2023-08-15 08:18 | Inpatient (IN) | payer MEDICARE ==
[~2023-08-15 08:18] MED LIST changes: +MIDAZOLAM 2 MG/2 ML VIAL IV PRN; +MIDAZOLAM 2 MG/2 ML VIAL IVP ONE; +fentaNYL (PF) 50 MCG/ML 2 ML AMP IV PRN; +fentaNYL (PF) 50 MCG/ML 2 ML AMP IVP ONE
[2023-08-15 09:12] LABS: Basophils % (A) 0 %; Eosinophils # (A) 0.2 k/uL (0-0.7); Eosinophils % (A) 3 %; HCT 37.2 % (39.0-53.0); Lymphocytes # (A) 1.6 k/uL (1.0-4.8); Lymphocytes % (A) 22 %; MCH 29.8 pg (25.0-35.0); MCHC 32.2 g/dL (31.0-37.0); MCV 92.5 fL (80.0-100.0); Mean Platelet Volume 7.2; Monocytes # (A) 0.4 k/uL (0-1.0); Monocytes % (A) 5 %; Neutrophils # (A) 4.8 k/uL (1.3-7.7); Neutrophils % (A) 66 %; Platelet Count 407 k/uL (150-450); RBC 4.02 m/uL (4.30-5.90); RDW 14.6 % (11.5-15.5); WBC 7.3 k/uL (3.8-10.6)
[2023-08-15] MEDS ORDERED: MIDAZOLAM 2 MG/2 ML VIAL IVP ONE (09:13)
[2023-08-15] MEDS ORDERED: fentaNYL (PF) 50 MCG/ML 2 ML AMP IVP ONE (09:13)
--- NOTE | 2023-08-15 09:28 | P.ANPRN ---
Procedure Note - Anesthesia - Invasive Line Left Arterial Line Date of Procedure: 08/15/23 Time of Procedure: 09:12 Location of Patient: PreOp Preparation: Sterile Prep, Sterile Dressing Arterial Line Location: Radial Ultrasound Used: No Needle Guage: 20g Narrative: Central line placement per sterile protocol utilized.
[2023-08-15] MEDS ORDERED: LIDOCAINE 1% INJ 10MG/ML (20 ML MDV) ONE ×2 (09:50→13:10)
[2023-08-15] MEDS ORDERED: ROCURONIUM 10 MG/ML (5 ML VIAL) IV ONE (09:50)
[2023-08-15] MEDS ORDERED: PROPOFOL 10 MG/ML 20 ML VIAL IV ONE (09:50)
[2023-08-15] MEDS ORDERED: SUCCINYLCHOLINE CHLORIDE 200 MG/10 ML VIAL IV ONE (09:50)
[2023-08-15] MEDS ORDERED: MIDAZOLAM 2 MG/2 ML VIAL ONE (09:50)
[2023-08-15] MEDS ORDERED: fentaNYL (PF) 50 MCG/ML 2 ML AMP ONE (09:50)
[2023-08-15] MEDS ORDERED: SUGAMMADEX SODIUM 200 MG/2 ML SDV IV ONE (09:50)
[2023-08-15] MEDS ORDERED: LACTATED RINGERS 1,000 ML IV ONE ×2 (11:21→12:30)
--- NOTE | 2023-08-15 11:49 | P.OP ---
Date of Procedure: 08/15/23 Preoperative Diagnosis: Lung Cancer Postoperative Diagnosis: Same Procedure(s) Performed: Mediastinoscopy Anesthesia: GOSIA Surgeon: Jhony Whalen System Manager #1: Nacho Javier Estimated Blood Loss (ml): 20 Pathology: other (R2 and R4 node) Condition: stable Disposition: PACU Indications for Procedure: This patient is a 68 year-old male with a >100 pack year history of smoking who was diagnosed with a RUL nodule. PET/CT revealed FDG avid RUL nodule in addition to R4 node. He underwent robotic assisted biopsy of the nodule which reveals NSCLC and EBUS was performed on the R4 node. This specimen was hypocellular and so biopsy of the R4 node on EBUS was considered inadequate. In order to rule out metastatic disease we recommended. Operative Findings: R2 and R4 nodes easily found. Small amount of air leak noted in ventilator after removal of R4 node consistent with micropuncture of trachea. Controlled with progel and fibrillar packing. Strap muscle closed and patient extubated. Description of Procedure: The patient underwent arterial line placement in the pre-operative suite. He was brought back to the operating room and placed in the supine position. General endotracheal anesthesia was induced and the patient was intubated with a single lumen tube. His neck was extended and a should roll placed. His neck, chest and abdomen were prepped and draped in the usual sterile fashion and antibiotics were given. I made a transverse incision 1 finger breadth above the sternal notch. This was carried down through the strap muscles and the middle thyroid vein was ligated using suture ligatures. The pre-tracheal fascia was entered using a matti scissor and the pre-tracheal plane was created. The video mediastinoscope was inserted and directed towards the right. Immediately an R2 node was encountered. The biopsy forcep was used to biopsy this node. The mediastinoscope was advanced and the R4 node was identified. A needle was inserted to ensure that this was not a blood vessel. This node was biopsied with a forcep. At this point, there was an air leak noted on the ventilator. The pre-tracheal area was packed. It was noted that there was a micropuncture of the trachea near the r4 area and progel was placed over it holding ventilation for 1 minute. In addition, the area was packed with fibrillar and surgicel. The strap muscle was closed with a 2-0 vicryl and incision closed in layers of vicryl and monocryl. The patient was extubated.
[2023-08-15] MEDS: HYDROmorphone 0.5 MG/0.5 ML SYRINGE IVP PRN ×3 (11:53→12:11)
[2023-08-15] MEDS ORDERED: IPRATROPIUM-ALBUTEROL 3 ML NEB IH PRN (12:20)
[2023-08-15] MEDS ORDERED: ONDANSETRON 4 MG/2 ML VIAL IVP PRN (12:20)
[2023-08-15] MEDS ORDERED: METOCLOPRAMIDE 5 MG/ML 2 ML VIAL IVP PRN (12:20)
[2023-08-15] MEDS ORDERED: ACETAMINOPHEN TAB 325 MG TAB PO PRN (12:20)
[2023-08-15] MEDS ORDERED: LABETALOL SYRINGE 5 MG/ML (4 ML SYR) IVP ONE (12:27)
--- NOTE | 2023-08-15 12:51 | XR ---
EXAMINATION TYPE: XR chest 1V portable DATE OF EXAM: 08/15/2023 12:18 PM CLINICAL INDICATION:Male, 68 years old with history of Status post mediastinoscopy; [facility] COMPARISON: Chest radiographs from 08/01/2023 TECHNIQUE: XR chest 1V portable Frontal view of the chest. FINDINGS: Lungs/Pleura: New right moderate pneumothorax with similar opacity measuring 2.8 cm. There is no evid ence of pleural effusion, focal consolidation, or pneumothorax. Pulmonary vascularity: Unremarkable. Heart/mediastinum: Cardiomediastinal silhouette is unremarkable. Musculoskeletal: No acute osseous pathology. There is subcutaneous emphysema along the lower neck. IMPRESSION: 1. New moderate right pneumothorax. 2. Subcutaneous emphysema along the lower neck. Findings communicated to Dr. Jhony Whalen MD on 08/15/2023 12:[address] Efra Mi.
[2023-08-15 13:00] LABS: Glucose,Whole Blood 111 mg/dL (70-110)
[2023-08-15] MEDS ORDERED: METOPROLOL TARTRATE 5 MG/5 ML VIAL IVP ONE (13:08)
[2023-08-15] MEDS: DEXTROSE 5%-0.45% NACL 1,000 ML IV SCH (13:16)
[2023-08-15] MEDS ORDERED: HYDROmorphone 0.5 MG/0.5 ML SYRINGE IVP STA (13:26)
[2023-08-15] MEDS: CLEVIDIPINE BUTYRATE 25 MG in EMPTY BAG 1 BAG IV SCH ×2 (14:13→19:12)
--- NOTE | 2023-08-15 14:18 | XR ---
EXAMINATION TYPE: XR chest 1V portable DATE OF EXAM: 08/15/2023 2:10 PM CLINICAL INDICATION:Male, 68 years old with history of new right pigtail chest tube placement; [facility] COMPARISON: Chest radiographs from same day TECHNIQUE: XR chest 1V portable Frontal view of the chest. FINDINGS: Lungs/Pleura: Right pneumothorax has decreased in size. There is no evidence of pleural effusion, foc al consolidation, or left pneumothorax. Right midlung opacity remains present. Pulmonary vascularity: Unremarkable. Heart/mediastinum: Cardiomediastinal silhouette is unremarkable. Musculoskeletal: No acute osseous pathology. Other findings: Subcutaneous emphysema scattered throughout the visualized neck. Lines/Tubes: Right thoracotomy tube is present with evidence of small pneumothorax. IMPRESSION: Right thoracotomy in place with decreased right pneumothorax, small persistent pneumothorax and subcu taneous emphysema.
[2023-08-15] MEDS: IPRATROPIUM-ALBUTEROL 3 ML NEB IH SCH ×3 (14:47→19:35)
--- NOTE | 2023-08-15 14:50 | P.CNPUL ---
History of Present Illness Consult date: 08/15/23 Requesting physician: Jhony Whalen Reason for consult: pneumothorax, lung mass, abnormal CXR/CT Chief complaint: Pneumothorax. History of present illness: Pulmonary consult dated 08/15/2023. 68-year-old male who underwent mediastinoscopy today, with Dr. Whalen, to evaluate a 4R lymph node. The patient apparently underwent robotic bronchoscopy, on August 01, and endobronchial ultrasound, for a lesion in the right upper lobe. The lesion itself, was positive for non-small cell lung cancer. The 4R node, sampling was nondiagnostic. For that reason, the patient was referred to Dr. Whalen, to do mediastinoscopy, and evaluate the 4R node. The patient unfortunately developed a right-sided pneumothorax, during the procedure, and had a pigtail catheter placed in the right chest. The patient has subcutaneous emphysema, on the right side. Currently, he is resting comfortably in the intensive care unit, room 253. His primary care physician is Dr. Wicho Ramirez. He is on Cleveprex at 4 mg an hour for blood pressure control, and D5 with half-normal saline at 50 mL an hour. He's also on 2 L of oxygen. He is a bit drowsy from the procedure. White count 7.3, hemoglobin 12, hematocrit 37.2, with a normal platelet count. Initial post mediastinoscopy chest x-ray shows a moderate right-sided pneumothorax, with subcutaneous emphysema. Following insertion of a small drainage catheter, the right-sided pneumothorax is decreased in size, but still persistent. Review of Systems REVIEW OF SYSTEMS: CONSTITUTIONAL: [Negative.] NEUROLOGIC: [ Negative.] HEENT: [ Negative.] CARDIAC: Chest pain. PULMONARY: Mild shortness of breath. GI: [Negative.] : [Negative.] RHEUMATOLOGIC: [ Negative.] IMMUNOLOGIC: [ Negative.] ENDOCRINE: [Negative. ] DERMATOLOGIC: [Negative.] Past Medical History Past Medical History: Cancer, COPD, Hyperlipidemia, Hypertension, Osteoarthritis (OA), Prostate Disorder Additional Past Medical History / Comment(s): hx. prostate cancer this year-had surg., urinary incontinence since surg., new dx. lung cancer per pt., colitis History of Any Multi-Drug Resistant Organisms: None Reported Past Surgical History: Prostate Surgery Additional Past Surgical History / Comment(s): cataracts removed, colonoscopy, prostatectomy April 2023, recent bronchoscopy Past Anesthesia/Blood Transfusion Reactions: Previous Problems w/ Anesthesia Additional Past Anesthesia/Blood Transfusion Reaction / Comment(s): woke during cataract surg., recent bronch had some stool incontinence when he woke up Smoking Status: Former smoker - Past Family History Mother Family Medical History: Cancer Medications and Allergies Home Medications Medication Instructions Recorded Confirmed Type Atorvastatin Calcium 10 mg PO HS 04/25/23 08/14/23 History Losartan Potassium [Cozaar] 25 mg PO DAILY 04/25/23 08/14/23 History sulfaSALAzine [Sulfasalazine] 1,000 mg PO BID 04/25/23 08/14/23 History Apalutamide [Erleada] 4 tab PO DAILY 07/29/23 08/14/23 History Albuterol Inhaler [Ventolin Hfa 1 - 2 puff INHALATION Q6H PRN 08/14/23 08/14/23 History Inhaler] Albuterol Nebulized [Ventolin 2.5 mg INHALATION Q6H PRN 08/14/23 08/14/23 History Nebulized] Multivitamins, Thera [Multivitamin 1 tab PO DAILY 08/14/23 08/14/23 History (formulary)] Allergies Allergy/AdvReac Type Severity Reaction Status Date / Time No Known Allergies Allergy Verified 08/15/23 08:47 Physical Exam Osteopathic Statement: *. No significant issues noted on an osteopathic structural exam other than those noted in the History and Physical/Consult. Vitals: Vital Signs Temp Pulse Pulse Resp BP BP BP 08/15/23 13:00 98.2 F 66 16 155/72 08/15/23 12:38 61 20 157/56 08/15/23 12:23 74 16 177/62 08/15/23 12:08 70 12 169/59 08/15/23 11:53 65 20 170/66 08/15/23 11:38 96.4 F L 70 16 176/65 08/15/23 09:18 69 16 132/61 08/15/23 08:43 97.3 F L 76 16 161/70 BP Pulse Ox 08/15/23 13:00 94 L 08/15/23 12:38 135/60 95 08/15/23 12:23 156/70 95 08/15/23 12:08 164/59 96 08/15/23 11:53 168/77 100 08/15/23 11:38 193/79 100 08/15/23 09:18 95 08/15/23 08:43 95 Intake and Output 08/14/23 08/15/23 08/15/23 22:59 06:59 14:59 Intake Total 2151.867 Output Total 100 Balance 2051.867 Intake: IV 2150 Dextrose 5%-0.45% NaCl 1, 50 000 ml @ 50 mls/hr IV . Q20H PALAK Rx#:[id number] Intake, IV Titration 1.867 Amount Clevidipine Butyrate 25 1.867 mg In Empty Bag 1 bag @ 1 MG/HR 2 mls/hr IV .Q24H PALAK Rx#:[id number] Output: Urine 0 Estimated Blood Loss 100 Other: Weight 88.7 kg ABP, PAP, CO, CI - Last 8 Hours Arterial Blood Pressure 175/63 No acute distress, oriented 3. Currently on 2 L with saturations in the mid 90s. HEENT examination is grossly unremarkable. Mucous membranes are moist. No oral lesions. Neck supple. Full range of motion. No adenopathy thyromegaly or neck vein distention. Cardiovascular examination reveals regular rhythm rate. S1-S2 normal. No S3 or S4. No discernible murmur noted. Heart rate 66 bpm. Palpable subcutaneous emphysema is noted over the right side of the chest. Lungs reveal mild scattered rhonchi. No wheezes or crackles. Breath sounds diminished on the right side. Subcutaneous emphysema on the right-sided chest. Abdomen soft bowel sounds are heard. No masses or tenderness. Extremities are intact. No cyanosis clubbing or edema. Skin is without rash or lesion. Neurologic examination is brief but nonfocal. Results - Laboratory Findings CBC and BMP: 08/15/23 08:58 Abnormal lab findings: Abnormal Labs 08/13/23 08/15/23 08/15/23 13:21 08:58 12:59 RBC 4.02 L Hgb 12.0 L Hct 37.2 L POC Glucose (mg/dL) 111 H Crossmatch See Detail - Diagnostic Findings Chest x-ray: image reviewed Assessment and Plan Assessment: Postop day #0, status post mediastinoscopy, with subsequent right-sided pneumothorax and subcutaneous emphysema. Recent robotic bronchoscopy/endobronchial ultrasound, August 01, for a lesion in the right upper lobe, positive for non-small cell lung cancer. 4R node sampling was nondiagnostic. Severe COPD, with an FEV1 that is 46% of predicted. History of hypertension. History of hyperlipidemia. Plan: Plan dated 08/15/2023. The patient is seen today in the intensive care unit, room 253. He's currently on 2 L of oxygen. Saturations are in the mid 90s. The patient's currently on Cleveprex at 4 mg an hour, for control of blood pressure. The patient has a small bore catheter in the right chest, to relieve the right-sided pneumothorax. Labs, x-rays, medications are reviewed. We will continue to follow make recommendations along the way. Prognosis is guarded. Time with Patient: Greater than 30
[2023-08-15] MEDS: HEPARIN SODIUM,PORCINE 5,000 UNIT/ML 1 ML VIAL SQ SCH ×2 (16:59→23:51)
[2023-08-15] MEDS: KETOROLAC 15 MG/ML 1 ML VIAL IVP SCH ×2 (17:00→23:51)
[2023-08-15] MEDS ORDERED: [UNRECOGNIZED DRUG - OTHER] PO SCH (17:30)
[2023-08-15] MEDS ORDERED: APALUTAMIDE 60 MG PO SCH (17:45)
--- NOTE | 2023-08-15 17:56 | P.PCN ---
Date of Procedure: 08/15/23 Preoperative Diagnosis: Lung Cancer Postoperative Diagnosis: Same Procedure(s) Performed: Right sided pleural pigtail placement Surgeon: Jhony Whalen Gas Shovel Operator #1: Gilebrt Albert Estimated Blood Loss (ml): 5 Pathology: none sent Condition: stable Disposition: ICU Indications for Procedure: This patient is a 68 year old male with a recent diagnosis of lung cancer. He underwent mediastinoscopy earlier in the day. Post-operative cxr reveals right sided ptx with subcutaneous emphysema. He now requires a bedside chest tube placement. Operative Findings: Intermittent air leak present in pigtail after insertion. Description of Procedure: The patients right chest was prepped and draped in the usual manner. I anesthetized the skin and parietal pleura over the 8th intercostal space. 18G needle was used to entcheer the chest cavity with good return of air. 0.35 wire was inserted via the needle and small yamileth made with a 11 blade. A 6.5F pigtail was threaded into the chest over the wire and anchored to the skin using silk sanabria ture. There was an intermittent air leak in the tube once hooked up and cxr confirmed proper placement.
[2023-08-15] MEDS: Apalutamide [Erleada] 60 MG Tablet PO SCH (18:54)
[2023-08-15] MEDS: FORMOTEROL FUMARATE 20 MCG/2 ML NEBU INHALATION SCH (19:35)
[2023-08-15] MEDS: ATORVASTATIN 10 MG TAB PO SCH (20:15)
--- NOTE | 2023-08-15 21:30 | XR ---
EXAMINATION: XR chest 1V portable DATE AND TIME: 08/15/2023 8:05 PM CLINICAL INDICATION: PHH; right sided pneumothorax. Inpatient Stat. TECHNIQUE: Departmental protocol COMPARISON: 08/15/2023 1:41 PM FINDINGS / IMPRESSION: Pneumomediastinum and bilateral subcutaneous emphysema redemonstrated, greater on the right. Right lower chest catheter in place. Small residual right pneumothorax, similar to prior. Lungs appear to be clear, as seen.
[2023-08-16 05:30] LABS: Basophils % (A) 0 %; Eosinophils # (A) 0.1 k/uL (0-0.7); Eosinophils % (A) 1 %; HCT 34.5 % (39.0-53.0); HGB 11.2 gm/dL (13.0-17.5); Lymphocytes # (A) 1.2 k/uL (1.0-4.8); Lymphocytes % (A) 12 %; MCHC 32.3 g/dL (31.0-37.0); MCV 92.9 fL (80.0-100.0); Mean Platelet Volume 7.2; Monocytes # (A) 0.2 k/uL (0-1.0); Monocytes % (A) 2 %; Neutrophils # (A) 8.2 k/uL (1.3-7.7); Neutrophils % (A) 83 %; Platelet Count 368 k/uL (150-450); RBC 3.72 m/uL (4.30-5.90); RDW 14.5 % (11.5-15.5); WBC 9.8 k/uL (3.8-10.6)
[2023-08-16 05:41] LABS: African American GFR (CKD) >90 (>60 ml/min/1.73 sqM); Anion Gap 7 mmol/L; Blood Urea Nitrogen 12 mg/dL (9-20); Calcium 8.5 mg/dL (8.4-10.2); Carbon Dioxide 24 mmol/L (22-30); Chloride 104 mmol/L (98-107); Glucose 114 mg/dL (74-99); Non-African American GFR(CKD) >90 (>60 ml/min/1.73 sqM); Potassium 3.8 mmol/L (3.5-5.1); Sodium 135 mmol/L (137-145)
[2023-08-16] MEDS: KETOROLAC 15 MG/ML 1 ML VIAL IVP SCH ×4 (05:54→23:58)
[2023-08-16] MEDS: DEXTROSE 5%-0.45% NACL 1,000 ML IV SCH (06:20)
[2023-08-16] MEDS: FORMOTEROL FUMARATE 20 MCG/2 ML NEBU INHALATION SCH ×2 (08:04→19:47)
[2023-08-16] MEDS: IPRATROPIUM-ALBUTEROL 3 ML NEB IH SCH ×4 (08:04→19:47)
[2023-08-16] MEDS: MULTIVITAMINS, THERA 1 EACH TAB PO SCH (08:10)
[2023-08-16] MEDS: Apalutamide [Erleada] 60 MG Tablet PO SCH (08:10)
[2023-08-16] MEDS: HEPARIN SODIUM,PORCINE 5,000 UNIT/ML 1 ML VIAL SQ SCH ×3 (08:10→23:57)
[2023-08-16] MEDS: LOSARTAN 25 MG TAB PO SCH (08:10)
--- NOTE | 2023-08-16 09:00 | XR ---
EXAMINATION TYPE: XR chest 1V portable DATE OF EXAM: 08/16/2023 HISTORY: Shortness of breath. COMPARISON: None. TECHNIQUE: Single view of the chest is submitted. FINDINGS: 3 cm mass right midlung zone. There is subcutaneous air along the right chest wall extending into the neck. Right basilar pleural catheter is seen without sizable pneumothorax at this time. Right suprah ilar increased density. The heart is stable. Hilar and mediastinal structures are within normal limits. Degenerative changes are seen of the dorsal spine. IMPRESSION: 1. 3 cm mass right midlung zone. There is subcutaneous air along the right chest wall extending into the neck. Right basilar pleural catheter is seen without sizable pneumothorax at this time. Right sanabria prahilar increased density.
--- NOTE | 2023-08-16 11:34 | P.PN ---
Subjective Progress Note Date: 08/16/23 Principal diagnosis: Pneumothorax. Pulmonary consult dated 08/15/2023. 68-year-old male who underwent mediastinoscopy today, with Dr. Whalen, to evaluate a 4R lymph node. The patient apparently underwent robotic bronchoscopy, on August 01, and endobronchial ultrasound, for a lesion in the right upper lobe. The lesion itself, was positive for non-small cell lung cancer. The 4R node, sampling was nondiagnostic. For that reason, the patient was referred to Dr. Whalen, to do mediastinoscopy, and evaluate the 4R node. The patient unfortunately developed a right-sided pneumothorax, during the procedure, and had a pigtail catheter placed in the right chest. The patient has subcutaneous emphysema, on the right side. Currently, he is resting comfortably in the intensive care unit, room 253. His primary care physician is Dr. Wicho Ramirez. He is on Cleveprex at 4 mg an hour for blood pressure control, and D5 with half-normal saline at 50 mL an hour. He's also on 2 L of oxygen. He is a bit drowsy from the procedure. White count 7.3, hemoglobin 12, hematocrit 37.2, with a normal platelet count. Initial post mediastinoscopy chest x-ray shows a moderate right-sided pneumothorax, with subcutaneous emphysema. Following insertion of a small drainage catheter, the right-sided pneumothorax is decreased in size, but still persistent. Progress note dated 08/16/2023. 68-year-old male seen yesterday in consultation. The patient is status post mediastinoscopy, the sample 4R lymph node. The patient had a previous robotic bronchoscopy, and endobronchial ultrasound, for right upper lobe lesion, that was positive for non-small cell lung cancer. The patient for sig developed a pneumothorax, with a mediastinoscopy. Currently, he is doing well. He's postop day #1. He is on 3 L of oxygen. He is receiving Cleveprex 3 mg an hour. There was no leak from the chest tube. White count 9.8, hemoglobin 11.2, hematocrit 34.5, with a normal platelet count. Sodium 135, potassium 3.8, chlorides 104, CO2 24, BUN 12, creatinine 0.48. Chest x-ray shows a 3 cm mass, and a right mid lung sounds. There is subcutaneous air along the right chest wall extending into the neck. No significant pneumothorax is noted. Objective - Vital Signs Vital signs: Vital Signs Temp 98.4 F 08/16/23 08:00 Pulse 85 08/16/23 11:00 Resp 19 08/16/23 11:00 BP 121/67 08/16/23 11:00 Pulse Ox 96 08/16/23 11:00 FiO2 Intake & Output 08/15/23 08/16/23 08/16/23 18:59 06:59 18:59 Intake Total 2424.567 1169.299 60.5 Output Total 100 730 100 Balance 2324.567 439.299 -39.5 Weight 88.7 kg 84.822 kg Intake: IV 2400 600 50 Dextrose 5%-0.45% NaCl 1, 300 600 50 000 ml @ 50 mls/hr IV . Q20H PALAK Rx#:[id number] Intake, IV Titration 24.567 29.299 10.5 Amount Clevidipine Butyrate 25 24.567 29.299 10.5 mg In Empty Bag 1 bag @ 1 MG/HR 2 mls/hr IV .Q24H PALAK Rx#:[id number] Oral 540 Output: Chest Tube Drainage 30 Chest Tube Right 30 Urine 0 700 100 Estimated Blood Loss 100 Other: Voiding Method Diaper External Catheter External Catheter # Voids 2 0 1 # Bowel Movements 1 1 ABP, PAP, CO, CI - Last Documented Arterial Blood Pressure 148/54 - Exam No acute distress, oriented 3. Currently on 2 L with saturations 96%. HEENT examination is grossly unremarkable. Mucous membranes are moist. No oral lesions. Neck supple. Full range of motion. No adenopathy thyromegaly or neck vein distention. Cardiovascular examination reveals regular rhythm rate. S1-S2 normal. No S3 or S4. No discernible murmur noted. Heart rate 85 bpm. Palpable subcutaneous emphysema is noted over the right side of the chest. Lungs reveal mild scattered rhonchi. No wheezes or crackles. Breath sounds diminished on the right side. Subcutaneous emphysema on the right-sided chest. Abdomen soft bowel sounds are heard. No masses or tenderness. Extremities are intact. No cyanosis clubbing or edema. Skin is without rash or lesion. Neurologic examination is brief but nonfocal. - Labs CBC & Chem 7: 08/16/23 05:15 08/16/23 05:15 Labs: Abnormal Lab Results - Last 24 Hours (Table) 08/13/23 08/15/23 08/16/23 Range/Units 13:21 12:59 05:15 RBC 3.72 L (4.30-5.90) m/uL Hgb 11.2 L (13.0-17.5) gm/dL Hct 34.5 L (39.0-53.0) % Neutrophils # 8.2 H (1.3-7.7) k/uL Sodium (137-145) mmol/L Creatinine (0.66-1.25) mg/dL Glucose (74-99) mg/dL POC Glucose (mg/dL) 111 H (70-110) mg/dL Crossmatch See Detail 08/16/23 Range/Units 05:15 RBC (4.30-5.90) m/uL Hgb (13.0-17.5) gm/dL Hct (39.0-53.0) % Neutrophils # (1.3-7.7) k/uL Sodium 135 L (137-145) mmol/L Creatinine 0.48 L (0.66-1.25) mg/dL Glucose 114 H (74-99) mg/dL POC Glucose (mg/dL) (70-110) mg/dL Crossmatch Assessment and Plan Assessment: Postop day #1, status post mediastinoscopy, with subsequent right-sided pneumothorax and subcutaneous emphysema. Recent robotic bronchoscopy/endobronchial ultrasound, August 01, for a lesion in the right upper lobe, positive for non-small cell lung cancer. 4R node sampling was nondiagnostic. Severe COPD, with an FEV1 that is 46% of predicted. History of hypertension. History of hyperlipidemia. Plan: Plan dated 08/15/2023. The patient is seen today in the intensive care unit, room 253. He's currently on 2 L of oxygen. Saturations are in the mid 90s. The patient's currently on Cleveprex at 4 mg an hour, for control of blood pressure. The patient has a small bore catheter in the right chest, to relieve the right-sided pneumothorax. Labs, x-rays, medications are reviewed. We will continue to follow make recommendations along the way. Prognosis is guarded. Plan dated 08/16/2023. The patient will be seen by cardiothoracic surgery, and a decision will be made about the chest tube. There was no obvious pneumothorax, on the chest x-ray. The patient still does have some subcutaneous emphysema. In addition, the patient's on Cleveprex, for blood pressure control. His home blood pressure medication was started this morning. Labs, x-rays, medications are reviewed. No additional recommendations are made. The patient will follow with my partner , and also cardiothoracic surgery. Labs, x-rays, and medications are reviewed. Time with Patient: Greater than 30
--- NOTE | 2023-08-16 12:11 | P.PN ---
Subjective Progress Note Date: 08/16/23 Principal diagnosis: Lung cancer. Past medical history significant for COPD, hyperlipidemia, hypertension, osteoarthritis, history of prostate cancer status post prostatectomy and a remote history of nicotine dependence. POD #1 mediastinoscopy Postoperative right pneumothorax, unexpected requiring chest tube placement by Dr. Whalen area The patient was seen and examined in follow-up today 08/16/2023 at his bedside in the intensive care unit. Currently sitting up to the bedside chair, is awake, alert, oriented 3 and is in no acute apparent distress. He denies any complaints of shortness of breath or pain at this time, although was complaining of some subcutaneous emphysema to his chest, neck and periorbital. He denies any difficulty swallowing. Oxygen saturation are 96% on 3 L nasal cannula and he is achieving 1250 mL on his incentive spirometry with encouragement. Bedside telemetry showing normal sinus rhythm heart rate 96 BPM. He has been afebrile the last 24 hours. Right pleural chest tube remains in place to low continuous wall suction -20 cm H2O. Draining thin serosanguineous drainage. No air leak present. Right chest pigtail chest tube drained 30 mL output in the last 24 hours. Laboratory and chest x-ray results reviewed. Objective - Vital Signs Vital signs: Vital Signs Temp 98.4 F 08/16/23 08:00 Pulse 96 08/16/23 11:47 Resp 19 08/16/23 11:00 BP 121/67 08/16/23 11:00 Pulse Ox 96 08/16/23 11:00 FiO2 Intake & Output 08/15/23 08/16/23 08/16/23 18:59 06:59 18:59 Intake Total 2424.567 1169.299 60.5 Output Total 100 730 100 Balance 2324.567 439.299 -39.5 Weight 88.7 kg 84.822 kg Intake: IV 2400 600 50 Dextrose 5%-0.45% NaCl 1, 300 600 50 000 ml @ 50 mls/hr IV . Q20H [facility]AK Rx#:[id number] Intake, IV Titration 24.567 29.299 10.5 Amount Clevidipine Butyrate 25 24.567 29.299 10.5 mg In Empty Bag 1 bag @ 1 MG/HR 2 mls/hr IV .Q24H [facility]AK Rx#:[id number] Oral 540 Output: Chest Tube Drainage 30 Chest Tube Right 30 Urine 0 700 100 Estimated Blood Loss 100 Other: Voiding Method Diaper External Catheter External Catheter # Voids 2 0 1 # Bowel Movements 1 1 ABP, PAP, CO, CI - Last Documented Arterial Blood Pressure 148/54 - Exam CONSTITUTIONAL: Appears comfortable, cooperative, no acute distress RESPIRATORY: Lungs sounds clear throughout, diminished to his bilateral bases, right greater than left. Respirations are symmetrical, nonlabored. Currently on 3 L nasal cannula with oxygen saturation 96%. Able to achieve 1250 mL on incentive spirometry. Strong cough. CARDIOVASCULAR: S1, S2 present. Regular rate and rhythm, sinus rhythm on telemetry. Palpable peripheral pulses bilaterally. No edema present. No calf pain or tenderness noted. SCDs present. GASTROINTESTINAL: Abdomen soft, nontender, nondistended. Active bowel sounds present 4 quadrants. Tolerating diet. GENITOURINARY: Continues to void clear, yellow urine. Urine output 700 mL in the last 8 hours. INTEGUMENTARY: Skin is warm and dry with evidence of good perfusion. Mediastinoscopy incision clean, dry and approximated. No redness or drainage. Right chest pigtail catheter insertion site dressing clean, dry and intact. Subcutaneous emphysema present to his right chest, right back, neck and periorbital right greater than left. NEUROLOGIC: Cranial nerves II through XII intact. No focal deficits. MUSKULOSKELETAL: Able to move all extremities, strength equal bilaterally, gait normal PSYCHIATRIC: Alert and oriented to person place and time, appropriate affect, intact judgment and insight INVASIVE LINES AND TUBES: Right pleural pigtail catheter remains in place to low continuous wall suction -20 cm H2O. No air leak is present. Draining thin serosanguineous drainage. - Allied health notes Allied health notes reviewed: nursing - Labs CBC & Chem 7: 08/16/23 05:15 08/16/23 05:15 Labs: Abnormal Lab Results - Last 24 Hours (Table) 08/13/23 08/15/23 08/16/23 Range/Units 13:21 12:59 05:15 RBC 3.72 L (4.30-5.90) m/uL Hgb 11.2 L (13.0-17.5) gm/dL Hct 34.5 L (39.0-53.0) % Neutrophils # 8.2 H (1.3-7.7) k/uL Sodium (137-145) mmol/L Creatinine (0.66-1.25) mg/dL Glucose (74-99) mg/dL POC Glucose (mg/dL) 111 H (70-110) mg/dL Crossmatch See Detail 08/16/23 Range/Units 05:15 RBC (4.30-5.90) m/uL Hgb (13.0-17.5) gm/dL Hct (39.0-53.0) % Neutrophils # (1.3-7.7) k/uL Sodium 135 L (137-145) mmol/L Creatinine 0.48 L (0.66-1.25) mg/dL Glucose 114 H (74-99) mg/dL POC Glucose (mg/dL) (70-110) mg/dL Crossmatch - Imaging and Cardiology Chest x-ray: report reviewed, image reviewed Assessment and Plan Assessment: Non-small cell lung cancer, status post mediastinoscopy with subsequent right- sided pneumothorax and subcutaneous emphysema, status post left chest pleural pigtail catheter placed Status post robotic bronchoscopy/endobronchial ultrasound on 08/01/2023 for a lesion in the right upper lobe, positive for non-small cell carcinoma lung cancer. 4R sampling was nondiagnostic Severe COPD, with a preoperative FEV1 46% of predicted value History of hypertension History of hyperlipidemia History of prostate cancer, status post prostatectomy Osteoarthritis Remote history of nicotine dependence Plan: We will clamp his right pleural pigtail catheter today and obtain a repeat chest x-ray at 12 noon to reevaluate his right pneumothorax. If no pneumothorax at 12 noon we will possibly remove his right pleural pigtail catheter. Encourage use of incentive spirometry 10 times every hour while awake. Increase activity as tolerated. Out of bed for all meals. Pain control per current when necessary orders. GI and DVT prophylaxis. Wean oxygen as tolerated, bronchodilator management per pulmonary/critical care medicine recommendations. Continue to monitor daily chest x-rays. Home medications resumed. More recommendations to follow based on patient's clinical course. Time with Patient: Greater than 30
--- NOTE | 2023-08-16 12:25 | XR ---
EXAMINATION TYPE: XR chest 1V portable DATE OF EXAM: 08/16/2023 HISTORY: Shortness of breath. COMPARISON: 08/16/2023 TECHNIQUE: Single view of the chest is submitted. FINDINGS: Right basilar pleural catheter is in place. Subcutaneous emphysema seen along the right chest wall ex tending into the neck. This limits evaluation for pneumothorax. No obvious pneumothorax identified at this time. Right mid lung zone pulmonary mass redemonstrated. Basilar linear atelectasis noted. The heart is stable. Hilar and mediastinal structures are within normal limits. Degenerative changes are seen of the dorsal spine. IMPRESSION: 1. No sizable pneumothorax seen although as indicated above examination is limited given subcutaneou s air and overlying facial soft tissues.
[2023-08-16] MEDS: traMADol 50 MG TAB PO SCH ×2 (15:49→21:06)
[2023-08-16] MEDS: ATORVASTATIN 10 MG TAB PO SCH (21:06)
[2023-08-17] MEDS: KETOROLAC 15 MG/ML 1 ML VIAL IVP SCH ×2 (06:40→11:35)
[2023-08-17] MEDS: MULTIVITAMINS, THERA 1 EACH TAB PO SCH (08:24)
[2023-08-17] MEDS: LOSARTAN 25 MG TAB PO SCH (08:24)
[2023-08-17] MEDS: HEPARIN SODIUM,PORCINE 5,000 UNIT/ML 1 ML VIAL SQ SCH (08:24)
[2023-08-17] MEDS: traMADol 50 MG TAB PO SCH (08:24)
[2023-08-17] MEDS: Apalutamide [Erleada] 60 MG Tablet PO SCH (08:32)
[2023-08-17] MEDS: IPRATROPIUM-ALBUTEROL 3 ML NEB IH SCH ×2 (08:53→12:14)
[2023-08-17] MEDS: FORMOTEROL FUMARATE 20 MCG/2 ML NEBU INHALATION SCH (08:53)
[2023-08-17 09:22] LABS: HCT 34.2 % (39.0-53.0); HGB 11.1 gm/dL (13.0-17.5); MCH 30.1 pg (25.0-35.0); MCHC 32.4 g/dL (31.0-37.0); MCV 92.9 fL (80.0-100.0); Mean Platelet Volume 7.2; Platelet Count 368 k/uL (150-450); RBC 3.68 m/uL (4.30-5.90); RDW 14.7 % (11.5-15.5)
--- NOTE | 2023-08-17 11:11 | P.PN ---
Subjective Progress Note Date: 08/17/23 Principal diagnosis: Pneumothorax. Pulmonary consult dated 08/15/2023. 68-year-old male who underwent mediastinoscopy today, with Dr. Whalen, to evaluate a 4R lymph node. The patient apparently underwent robotic bronchoscopy, on August 01, and endobronchial ultrasound, for a lesion in the right upper lobe. The lesion itself, was positive for non-small cell lung cancer. The 4R node, sampling was nondiagnostic. For that reason, the patient was referred to Dr. Whalen, to do mediastinoscopy, and evaluate the 4R node. The patient unfortunately developed a right-sided pneumothorax, during the procedure, and had a pigtail catheter placed in the right chest. The patient has subcutaneous emphysema, on the right side. Currently, he is resting comfortably in the intensive care unit, room 253. His primary care physician is Dr. Wicho Ramirez. He is on Cleveprex at 4 mg an hour for blood pressure control, and D5 with half-normal saline at 50 mL an hour. He's also on 2 L of oxygen. He is a bit drowsy from the procedure. White count 7.3, hemoglobin 12, hematocrit 37.2, with a normal platelet count. Initial post mediastinoscopy chest x-ray shows a moderate right-sided pneumothorax, with subcutaneous emphysema. Following insertion of a small drainage catheter, the right-sided pneumothorax is decreased in size, but still persistent. Progress note dated 08/16/2023. 68-year-old male seen yesterday in consultation. The patient is status post mediastinoscopy, the sample 4R lymph node. The patient had a previous robotic bronchoscopy, and endobronchial ultrasound, for right upper lobe lesion, that was positive for non-small cell lung cancer. The patient for sig developed a pneumothorax, with a mediastinoscopy. Currently, he is doing well. He's postop day #1. He is on 3 L of oxygen. He is receiving Cleveprex 3 mg an hour. There was no leak from the chest tube. White count 9.8, hemoglobin 11.2, hematocrit 34.5, with a normal platelet count. Sodium 135, potassium 3.8, chlorides 104, CO2 24, BUN 12, creatinine 0.48. Chest x-ray shows a 3 cm mass, and a right mid lung sounds. There is subcutaneous air along the right chest wall extending into the neck. No significant pneumothorax is noted. Progress note dated 08/17/2023. 68-year-old male who was seen in consultation 2 days ago. He is status post mediastinoscopy, sampling of the 4R lymph node. He has a recent diagnosis of lung cancer, diagnosed by robotic bronchoscopy, and endobronchial ultrasound. The lesion was initially evaluated in the right upper lobe. It turned out to be non-small cell lung cancer. After mediastinoscopy, the patient developed pneumothorax. Currently, he is doing well. He is not on any IV fluids. He is on room air. I spoke to cardiothoracic surgery, and hopefully they're planning on possibly sending him home today or tomorrow. The patient himself has no complaints. White count is 9, hemoglobin 11.1, hematocrit 34.2, within normal platelet count. Chest x-ray has not yet been officially read. The patient does have some right-sided and some left-sided subcutaneous emphysema. No definitive pneumothorax is seen. Objective - Vital Signs Vital signs: Vital Signs Temp 97.8 F 08/17/23 08:00 Pulse 91 08/17/23 09:38 Resp 18 08/17/23 08:00 BP 144/90 08/17/23 08:00 Pulse Ox 91 L 08/17/23 09:21 FiO2 Intake & Output 08/16/23 08/17/23 08/17/23 18:59 06:59 18:59 Intake Total 780.5 450 Output Total 450 378 Balance 330.5 72 Weight 90.5 kg Intake: IV 50 0 Dextrose 5%-0.45% NaCl 1, 50 0 000 ml @ 50 mls/hr IV . Q20H [facility] Rx#:[id number] Intake, IV Titration 10.5 Amount Clevidipine Butyrate 25 10.5 mg In Empty Bag 1 bag @ 1 MG/HR 2 mls/hr IV .Q24H [facility]AK Rx#:[id number] Oral 720 450 Output: Chest Tube Drainage 28 Chest Tube Right 28 Urine 450 350 Other: Voiding Method External Catheter External Catheter External Catheter # Voids 1 # Bowel Movements 1 1 1 ABP, PAP, CO, CI - Last Documented Arterial Blood Pressure 181/67 - Exam No acute distress, oriented 3. Primary saturation is 93%. HEENT examination is grossly unremarkable. Mucous membranes are moist. No oral lesions. Neck supple. Full range of motion. No adenopathy thyromegaly or neck vein distention. Cardiovascular examination reveals regular rhythm rate. S1-S2 normal. No S3 or S4. No discernible murmur noted. Heart rate 91 bpm. Palpable subcutaneous emphysema is noted over the right side of the chest. Lungs reveal mild scattered rhonchi. No wheezes or crackles. Breath sounds diminished on the right side. Subcutaneous emphysema on the right-sided chest. Abdomen soft bowel sounds are heard. No masses or tenderness. Extremities are intact. No cyanosis clubbing or edema. Skin is without rash or lesion. Neurologic examination is brief but nonfocal. - Labs CBC & Chem 7: 08/17/23 08:30 08/16/23 05:15 Labs: Abnormal Lab Results - Last 24 Hours (Table) 08/13/23 08/17/23 Range/Units 13:21 08:30 RBC 3.68 L (4.30-5.90) m/uL Hgb 11.1 L (13.0-17.5) gm/dL Hct 34.2 L (39.0-53.0) % Crossmatch See Detail Assessment and Plan Assessment: Postop day #2, status post mediastinoscopy, with subsequent right-sided pneumothorax and subcutaneous emphysema. Recent robotic bronchoscopy/endobronchial ultrasound, August 01, for a lesion in the right upper lobe, positive for non-small cell lung cancer. 4R node sampling was nondiagnostic. Severe COPD, with an FEV1 that is 46% of predicted. History of hypertension. History of hyperlipidemia. Plan: Plan dated 08/15/2023. The patient is seen today in the intensive care unit, room 253. He's currently on 2 L of oxygen. Saturations are in the mid 90s. The patient's currently on Cleveprex at 4 mg an hour, for control of blood pressure. The patient has a s mall bore catheter in the right chest, to relieve the right-sided pneumothorax. Labs, x-rays, medications are reviewed. We will continue to follow make recommendations along the way. Prognosis is guarded. Plan dated 08/16/2023. The patient will be seen by cardiothoracic surgery, and a decision will be made about the chest tube. There was no obvious pneumothorax, on the chest x-ray. The patient still does have some subcutaneous emphysema. In addition, the patient's on Cleveprex, for blood pressure control. His home blood pressure medication was started this morning. Labs, x-rays, medications are reviewed. No additional recommendations are made. The patient will follow with my part ner, and also cardiothoracic surgery. Labs, x-rays, and medications are reviewed. Plan dated 08/17/2023. The patient's doing well. Chest x-ray still reveals some subcutaneous emphysema, but no definitive pneumothorax. The patient's on room air. Not receiving any IV fluids. Labs, x-rays, and medications are reviewed. The patient was on Cleveprex for blood pressure control, but he was started back on his losartan. We will continue to follow make recommendations along the way. Prognosis is guarded. The results of the sampling of the nodes, are pending. The patient does have a recent diagnosis of non-small cell lung cancer, diagnosed by robotic bronchoscopy, of a lesion, in the right upper lobe. Time with Patient: Less than 30
--- NOTE | 2023-08-17 11:12 | XR ---
EXAM: XR chest 1V portable CLINICAL INDICATION:Male, 68 years old with history of Right pneumothorax; [facility] COMPARISON: 08/16/2023 and before TECHNIQUE: Chest single view. FINDINGS: Lines/tubes/devices: Similar appearance of pigtail catheter towards the right lung base. EKG leads ov erlie the chest. Cardiomediastinum: Cardiac silhouette appears stable. Heart size upper normal. Mildly tortuous aorta. Possible small volume pneumomediastinum, appears stable. Vasculature: No increased pulmonary vasculature. Lungs/pleura: Similar appearing nodular density over the right mid lung zone approximately 2.8 cm in greatest dimen arslan, compatible with known large right lung nodule. No acute infiltrate, sizable effusion, or visibl e pneumothorax. Bones/soft tissues: Bony thorax appears grossly unchanged as seen. Similar amount of soft tissue emphysema in the right c hest wall and bilateral base of neck. IMPRESSION: No significant interval change, with findings as above.
--- NOTE | 2023-08-17 11:32 | P.PN ---
Subjective Progress Note Date: 08/17/23 Principal diagnosis: Lung cancer. Past medical history significant for COPD, hyperlipidemia, hypertension, osteoarthritis, history of prostate cancer status post prostatectomy and a remote history of nicotine dependence. POD #2 mediastinoscopy Postoperative right pneumothorax, unexpected requiring chest tube placement by Dr. Whalen The patient was seen and examined in follow-up today 08/17/2023 at his bedside in intensive care unit. He is currently sitting up to the bedside chair, is awake, alert, oriented 3 and is in no acute distress. He is currently waiting for a bed on the third floor cardiac stepdown unit as transfer orders were placed yesterday. He denies any complaints of pain or shortness of breath at this time. The patient's nurse reports that he did have what appeared to be scant blood in his stool this a.m., the patient reports that at times this is normal for him. Oxygen saturations are 95% on room air and he is achieving 2000 mL on his incentive spirometry with encouragement. Right pleural chest tube remains in place to low continuous wall suction -20 cm H2O. No air leak is present. Draining thin serosanguineous drainage with 10 mL output in the last 8 hours and 30 mL output in the last 24 hours. Chest x-ray was reviewed this a.m. He remains to have some subcu emphysema present to his face, periorbital right greater than left, his neck and right chest. The subcutaneous emphysema has improved in the last 24 hours. Objective - Vital Signs Vital signs: Vital Signs Temp 97.8 F 08/17/23 08:00 Pulse 97 08/17/23 08:00 Resp 18 08/17/23 08:00 BP 144/90 08/17/23 08:00 Pulse Ox 95 08/17/23 08:00 FiO2 Intake & Output 08/16/23 08/17/23 08/17/23 18:59 06:59 18:59 Intake Total 780.5 450 Output Total 450 378 Balance 330.5 72 Weight 90.5 kg Intake: IV 50 0 Dextrose 5%-0.45% NaCl 1, 50 0 000 ml @ 50 mls/hr IV . Q20H [facility]AK Rx#:[id number] Intake, IV Titration 10.5 Amount Clevidipine Butyrate 25 10.5 mg In Empty Bag 1 bag @ 1 MG/HR 2 mls/hr IV .Q24H [facility]AK Rx#:[id number] Oral 720 450 Output: Chest Tube Drainage 28 Chest Tube Right 28 Urine 450 350 Other: Voiding Method External Catheter External Catheter # Voids 1 # Bowel Movements 1 1 ABP, PAP, CO, CI - Last Documented Arterial Blood Pressure 181/67 - Exam CONSTITUTIONAL: Appears comfortable, cooperative, no acute distress RESPIRATORY: Lungs sounds clear throughout, diminished to his bilateral bases, right greater than left. Respirations are symmetrical, nonlabored. Currently on room air with oxygen saturation 95%. Able to achieve 2000 mL on incentive spirometry. Strong cough. CARDIOVASCULAR: S1, S2 present. Regular rate and rhythm, sinus rhythm on telemetry. Palpable peripheral pulses bilaterally. No edema present. No calf pain or tenderness noted. SCDs present. GASTROINTESTINAL: Abdomen soft, nontender, nondistended. Active bowel sounds present 4 quadrants. Tolerating diet. Bowel movement this a.m. Passing flatus. GENITOURINARY: Continues to void clear, yellow urine. Urine output 350 mL in the last 8 hours. INTEGUMENTARY: Skin is warm and dry with evidence of good perfusion. Mediastinoscopy incision clean, dry and approximated. No redness or drainage. Right chest pigtail catheter insertion site dressing clean, dry and intact. Subcutaneous emphysema present to his right chest, right back, neck and periorbital right greater than left. NEUROLOGIC: Cranial nerves II through XII intact. No focal deficits. MUSKULOSKELETAL: Able to move all extremities, strength equal bilaterally, gait normal PSYCHIATRIC: Alert and oriented to person place and time, appropriate affect, intact judgment and insight INVASIVE LINES AND TUBES: Right pleural pigtail catheter remains in place to low continuous wall suction -20 cm H2O. No air leak is present. Draining thin serosanguineous drainage. - Allied health notes Allied health notes reviewed: nursing - Labs CBC & Chem 7: 08/17/23 08:30 08/16/23 05:15 Labs: Abnormal Lab Results - Last 24 Hours (Table) 08/13/23 Range/Units 13:21 Crossmatch See Detail - Imaging and Cardiology Chest x-ray: report reviewed, image reviewed Assessment and Plan Assessment: Non-small cell lung cancer, status post mediastinoscopy with subsequent unexpected right-sided pneumothorax and subcutaneous emphysema, status post r ight chest pleural pigtail catheter placed Status post robotic bronchoscopy/endobronchial ultrasound on 08/01/2023 for a lesion in the right upper lobe, positive for non-small cell carcinoma lung canc er. 4R sampling was nondiagnostic Severe COPD, with a preoperative FEV1 46% of predicted value History of hypertension History of hyperlipidemia History of prostate cancer, status post prostatectomy Osteoarthritis Remote history of nicotine dependence Plan: We will remove his right pleural chest tube today. Encourage use of incentive spirometry 10 times every hour while awake. Increase activity as tolerated. Out of bed for all meals. Pain control per current when necessary orders. GI and DVT prophylaxis. Bronchodilator management per pulmonary/critical care medicine recommendations. Continue to monitor daily chest x-rays. Home medications resumed. Anticipate discharge home today. More recommendations to follow based on patient's clinical course. Time with Patient: Greater than 30
--- NOTE | 2023-08-17 12:15 | P.DS ---
Providers Date of admission: 08/15/23 12:05 Expected date of discharge: 08/17/23 Attending physician: Jhony Whalen MD Consults: 08/15/23 12:20 Consult Physician Routine Consulting Provider: Efra Mercado Consult Reason/Comments: ICU management Do you want consulting provider notified?: Yes Primary care physician: [facility] (Former[facility]) Course: FINAL DIAGNOSIS: Non-small cell lung cancer, status post mediastinoscopy with subsequent unexpected right-sided pneumothorax and subcutaneous emphysema, status post right chest pleural pigtail catheter placed Status post robotic bronchoscopy/endobronchial ultrasound on 08/01/2023 for a lesion in the right upper lobe, positive for non-small cell carcinoma lung cancer. 4R sampling was nondiagnostic Severe COPD, with a preoperative FEV1 46% of predicted value and a DLCO of 53% of predicted value History of hypertension History of hyperlipidemia History of prostate cancer, status post prostatectomy, episodes of urinary incontinence Osteoarthritis Remote history of nicotine dependence PRINCIPAL PROCEDURE: 1. Mediastinoscopy 2. Placement of right sided pigtail catheter chest tube HISTORY OF PRESENT ILLNESS: This is a 68-year-old gentleman who follows on an outpatient basis with Dr. Wicho [facility] primary [facility], Dr. Dinh for his pulmonary care and Dr. Gonzalez for his oncology care. The patient has a history of nicotine dependence with a greater than 100 pack per year history. He was recently diagnosed with a right upper lobe lung nodule. He underwent PET/co mputed tomography scan which revealed an FDG avid right upper lobe nodule in addition to our 4 node. For further evaluation he underwent a robotic-assisted biopsy completed by Dr. Dinh which revealed an non-small cell carcinoma lung cancer, and EBUS was performed also on the R4 node. The R4 node specimen was hypocellular and so the biopsy was considered inadequate. Due to the R4 node specimen being considered inadequate a consult was placed to Dr. Jhony Whalen from cardiothoracic surgery for further evaluation and treatment recommendations including mediastinoscopy. The patient met with Dr. Whalen, treatment options were discussed including mediastinoscopy. Risks and benefits of mediastinoscopy were discussed and knowing and understanding the risks the patient wished to proceed with the procedure. HOSPITAL COURSE: On 08/15/2023 the patient was brought to the hospital, taken to the preoperative area, and after obtaining consent was prepared in the usual fashion and subsequently went to the operating room where Dr. Whalen performed a mediastinal endoscopy. Upon completion of the procedure the patient was extubated and taken to the recovery room for further hemodynamic monitoring. Unfortunately in the recovery unit the patient was noted to have a unexpected right-sided pneumothorax, and developed some subcutaneous emphysema which required a placement of a right-sided pigtail catheter chest tube performed by Dr. Whalen. On postoperative day #2 the patient's subcutaneous emphysema has improved, the chest x-ray demonstrated no further evidence of pneumothorax and his chest tube demonstrated no obvious air leak. Subsequently the patient chest tube was removed on postoperative day #2, his oxygen was titrated down, he continued to work with his incentive spirometry, his pain was well-controlled and he was ready to be discharged home on postoperative day #2. The patient has received written and verbal instructions regarding his medications, activity restrictions, signs and symptoms requiring physician notification and his follow-up appointment. Surgical pathology results remain pending and will be discussed with the patient upon his follow-up visits. Plan - Discharge Summary Discharge Rx Participant: No New Discharge Prescriptions: New Acetaminophen Tab [Tylenol] 650 mg PO Q4HR PRN tab PRN Reason: Mild To Moderate Pain (1 - 6) Continue Losartan Potassium [Cozaar] 25 mg PO DAILY Atorvastatin Calcium 10 mg PO HS Multivitamins, Thera [Multivitamin (formulary)] 1 tab PO DAILY sulfaSALAzine [Sulfasalazine] 1,000 mg PO BID Apalutamide [Erleada] 4 tab PO DAILY Albuterol Nebulized [Ventolin Nebulized] 2.5 mg INHALATION Q6H PRN PRN Reason: Shortness Of Breath Albuterol Inhaler [Ventolin Hfa Inhaler] 1 - 2 puff INHALATION Q6H PRN PRN Reason: Shortness Of Breath Discharge Medication List Atorvastatin Calcium 10 mg PO HS 04/25/23 [History] Losartan Potassium [Cozaar] 25 mg PO DAILY 04/25/23 [History] sulfaSALAzine [Sulfasalazine] 1,000 mg PO BID 04/25/23 [History] Apalutamide [Erleada] 4 tab PO DAILY 07/29/23 [History] Albuterol Inhaler [Ventolin Hfa Inhaler] 1 - 2 puff INHALATION Q6H PRN 08/14/23 [History] Albuterol Nebulized [Ventolin Nebulized] 2.5 mg INHALATION Q6H PRN 08/14/23 [History] Multivitamins, Thera [Multivitamin (formulary)] 1 tab PO DAILY 08/14/23 [History] Acetaminophen Tab [Tylenol] 650 mg PO Q4HR PRN tab 08/17/23 [Rx] Follow up Appointment(s)/Referral(s): Jhony Whalen MD [STAFF PHYSICIAN] - 08/21/23 9:00 am Activity/Diet/Wound Care/Special Instructions: DISCHARGE INSTRUCTIONS: 1. No driving for 2 weeks, or until physician gives their ok. 2. No lifting, pushing, or pulling more than 10 pounds for 2 weeks. The physician will advise of any restriction changes. 3. Continue pain control per as needed orders. Alternate acetaminophen (Tylenol) and ibuprofen (Motrin/Advil) for pain. 4. Continue with incentive spirometry and splinting until otherwise directed by the physician. 5. Leave chest tube dressing for 48 hours. After that, remove all dressings and shower daily. 6. Routine incision care. No powders, lotions, ointments on incisions. 7. Please call surgeon/PROCESS MANUFACTURING ENGINEER for temp greater than 101 F or purulent drainage from incisions. 8. Smoking cessation counseling and program information provided. Quitting smoking is the most important step you can take to improve your health. For additional information and assistance to quit smoking, please call the [place] tobacco quit line (0-693-PXVG-NOW/ ) or online: [email or web address] Discharge Disposition: HOME SELF-CARE
[2023-08-17 12:40] VITALS: BP 143/75; PULSE 98; RESP 16; TEMP 98.2
== END 2023-08-17 12:45 | disposition home or self-care (01) | DRG 167 ==
LOC: OR 08:18 → 2SICU 11:19 → OR 12:05 → 2SICU 12:05
PROVIDERS: ADMIT Thoracic Surgery (Cardiothoracic Vascular Surgery); ATTEND Thoracic Surgery (Cardiothoracic Vascular Surgery)
PROC: 07B74ZX Excision of Thorax Lymphatic, Percutaneous Endoscopic Approach, Diagnostic (ICD-10-PCS; 2023-08-15)
PROC: 4A133B1 Monitoring of Arterial Pressure, Peripheral, Percutaneous Approach (ICD-10-PCS; 2023-08-15)
PROC: 4A133J1 Monitoring of Arterial Pulse, Peripheral, Percutaneous Approach (ICD-10-PCS; 2023-08-15)
PROC: 03HY32Z Insertion of Monitoring Device into Upper Artery, Percutaneous Approach (ICD-10-PCS; 2023-08-15)
PROC: 0W9930Z Drainage of Right Pleural Cavity with Drainage Device, Percutaneous Approach (ICD-10-PCS; principal; 2023-08-15 10:00)
DX: C34.11 Malignant neoplasm of upper lobe, right bronchus or lung (principal); J95.71 Accidental puncture and laceration of a respiratory system organ or structure during a respiratory system procedure; J95.811 Postprocedural pneumothorax; T79.7XXA Traumatic subcutaneous emphysema, initial encounter; R32 Unspecified urinary incontinence; R59.0 Localized enlarged lymph nodes; E78.5 Hyperlipidemia, unspecified; K52.9 Noninfective gastroenteritis and colitis, unspecified; I10 Essential (primary) hypertension; J44.9 Chronic obstructive pulmonary disease, unspecified; M19.90 Unspecified osteoarthritis, unspecified site; Z79.899 Other long term (current) drug therapy; Z85.46 Personal history of malignant neoplasm of prostate; Z87.891 Personal history of nicotine dependence; Z90.79 Acquired absence of other genital organ(s)
CPT/HCPCS: 71045; 80048; 82272; 85025; 85027; 86850; 86900; 86901; 86920; 88305; 94640

== ENCOUNTER → 2023-08-21 | Outpatient (CLI) | payer MEDICARE ==
--- NOTE | 2023-08-21 23:01 | XR ---
EXAMINATION TYPE: XR chest 2V DATE OF EXAM: 08/21/2023 COMPARISON: 08-17-23 INDICATION: Right-sided pneumothorax TECHNIQUE: Frontal and lateral views of the chest are obtained. FINDINGS: The heart size is normal. The pulmonary vasculature is normal. The lungs are clear. No pneumothorax is currently evident. There is a persistent 3 cm nodule lateral right midlung. Subcutaneous emphysema remains present on the right thorax and left neck. This is dim inished from comparison. Within the medial right upper lung field there is an air-fluid level. Abscess formation and cavitary lesion are within the differential. This is an interval change. Follow-up is recommended. IMPRESSION: 1. No persistent suspicious pneumothorax right chest. 2. Air-fluid level within the medial mediastinum right chest. Follow-up is recommended. Consider CT. Abscess and cavitary lesion are not excluded
== END | disposition home or self-care (01) ==
LOC: RADXRMAIN 08:17
PROVIDERS: ATTEND Nurse Practitioner Family
DX: J93.9 Pneumothorax, unspecified (principal)
CPT/HCPCS: 71046

== ENCOUNTER → 2023-08-27 | Outpatient (CLI) | payer OTHER ==
--- NOTE | 2023-08-27 11:10 | MR ---
EXAMINATION TYPE: MR brain wo/w con DATE OF EXAM: 08/27/2023 8:14 AM CLINICAL INDICATION:Male, 68 years old with history of C34.90; PHH, Lung cancer, evaluate for mets. COMPARISON: None TECHNIQUE: Multi planar, multi sequence imaging was performed through the brain including: T1, T2, In version recovery, susceptibility weighted imaging and gradient echo imaging and Diffusion weighted im aging. The patient was then given intravenous contrast and multi planar, T1 fat-saturation images wer e obtained. IV Contrast: 9 cc Gadavist FINDINGS: Motion limited exam. Prominent perivascular spaces in the basal ganglia. Diffusion-weighted imaging shows no evidence for restricted diffusion to suggest acute/subacute infarct. Intracranial a rterial flow voids are maintained. Midline structures show no abnormality. Scattered foci of high T2 signal intensity are seen within the periventricular white matter. The susceptibility weighted images do not reveal any evidence for micro-hemorrhage. After administration of gadolinium, no abnormal enh ancement is seen. Right frontal lobe developmental venous anomaly. The bone marrow signal is post craniotomy changes to the right frontal lobe. Paranasal sinuses and mastoid air cells: No significant paranasal sinus disease. Visualized orbits: Bilateral aphakia. IMPRESSION: Motion limited exam. 1. No evidence for metastatic disease, No evidence of intracranial mass, acute/subacute infarct, or a bnormal enhancement. 2. Nonspecific white matter changes, likely related to small vessel ischemic disease 3. Right frontal lobe developmental venous anomaly.
--- NOTE | 2023-08-27 13:07 | CA ---
Exercise Stress Test Report Name: Mitchel Mcgowan Exam Date: 08/27/2023 08:48 Exam Location: [place] Stress Ht (in): 72 Wt (lb): 192 BSA: 2.09 Ordering Phys: Josiah Whalen MD Referring Phys: JOSIAH WHALEN,, Technologist: Julio Ornelas Age: 68 Gender: M : 1955 Procedure CPT: Indications: Pre surgical ICD-10 Codes: Patient History: DIONISIO, HTN, CHOL, TOB (QUIT 20 YRS AGO), COPD Medications: ERLEADE, SULFASALOZINEM LASARTAN, ATORVOSTATIN, AND ALBUTEROL INHALER Meds past 24 hrs: Pretest Chest Pain: STRESS TEST Jose David Protocol Exercise Duration (min:sec): 03:[address] Depressions (mm): 0 Angina Score: 0 Braun Score: 3 Resting HR (bpm): 88 Peak HR (bpm): 135 Resting BP (mmHg): 161 / 72 Peak BP (mmHg): 212 / 64 MPHR: 150 Target HR: 128 % MPHR: 90 METS: 4.7 Total Dose: Peak Dose: Atropine: Double Product: 16586 BP Response: Stress Termination: Reached target heart rate, Patient request Stress Symptoms: Stress Summary: The patient's target heart rate was achieved ECG ANALYSIS Resting ECG: Sinus bradycardia. Sinus rhythm. Normal conduction. No arrhythmias. Normal repolarization. Stress ECG: No ECG evidence of ischemia with exercise. Ventricular premature contraction. CONCLUSIONS 1. Decreased exercise tolerance 2. Normal electrocardiographic response to exercise with no evidence of exercise induced ischemia 3. Occasional single PVCs Dr. Eduar Rodriguez MD (Electronically Signed) Final Date: 27 August 2023 13:06
== END | disposition home or self-care (01) ==
LOC: RADMRIMAIN 07:18
PROVIDERS: ATTEND Thoracic Surgery (Cardiothoracic Vascular Surgery)
DX: Z01.818 Encounter for other preprocedural examination (principal); Q28.3 Other malformations of cerebral vessels; C34.90 Malignant neoplasm of unspecified part of unspecified bronchus or lung; G93.89 Other specified disorders of brain
CPT/HCPCS: 93017; 70553; A9585

== ENCOUNTER → 2023-09-14 | Outpatient (CLI) | payer MEDICARE ==
[2023-09-14 09:32] LABS: INR 0.9 (<1.2); Partial Thromboplastin Time 25.3 sec (22.0-30.0); Prothrombin Time 10.2 sec (10.0-12.5)
[2023-09-14 12:37] LABS: Basophils # (A) 0.06 X 10*3/uL (0.00-0.10); Eosinophils % (A) 5.2 %; HCT 36.7 % (39.6-50.0); HGB 11.4 g/dL (13.0-17.0); Lymphocytes # (A) 1.49 X 10*3/uL (0.90-5.00); Lymphocytes % (A) 25.7 %; MCH 29.8 pg (27.0-32.0); MCHC 31.1 g/dL (32.0-37.0); MCV 96.1 FL (80.0-97.0); Mean Platelet Volume 8.9 FL (9.5-12.2); Monocytes # (A) 0.63 X 10*3/uL (0.20-1.00); Monocytes % (A) 10.9 %; NRBC Per 100 WBC 0 X 10*3/uL (0.00-0.01); Neutrophils # (A) 3.31 X 10*3/uL (1.80-7.70); Platelet Count 410 X 10*3/uL (140-440); RBC 3.82 X 10*6/uL (4.40-5.60); RDW 14.2 % (11.5-14.5)
[2023-09-14 12:54] LABS: Chloride 104 mmol/L (96-109); Glucose 98 mg/dL (70-110); Potassium 4.4 mmol/L (3.5-5.5); Sodium 140 mmol/L (135-145)
== END | disposition home or self-care (01) ==
LOC: LABPAT 08:01
PROVIDERS: ATTEND Internal Medicine Hematology & Oncology
DX: C34.11 Malignant neoplasm of upper lobe, right bronchus or lung (principal); Z01.812 Encounter for preprocedural laboratory examination
CPT/HCPCS: 80051; 82565; 82947; 84520; 85025; 85610; 85730; 86850; 86900; 86901

== ENCOUNTER 2023-09-23 05:37 | Inpatient (IN) | payer MEDICARE ==
[2023-09-16 10:03] VITALS: BMI 27.1
[~2023-09-23 05:37] MED LIST changes: -LACTATED RINGERS 1,000 ML IV SCH; -MIDAZOLAM 2 MG/2 ML VIAL IV PRN; -MIDAZOLAM 2 MG/2 ML VIAL IVP ONE; +droPERidol 5 MG/2 ML VIAL IVP PRN; -fentaNYL (PF) 50 MCG/ML 2 ML AMP IV PRN; -fentaNYL (PF) 50 MCG/ML 2 ML AMP IVP ONE
[2023-09-23] MEDS: LACTATED RINGERS 1,000 ML IV SCH ×2 (06:10→06:20)
[2023-09-23] MEDS ORDERED: MIDAZOLAM 2 MG/2 ML VIAL IVP ONE (06:50)
[2023-09-23] MEDS ORDERED: ceFAZolin 1,000 MG VIAL ONE (08:30)
[2023-09-23] MEDS ORDERED: PHENYLEPHRINE-0.9% NACL SYG 1,000 MCG/10 ML SYRINGE ONE (08:30)
[2023-09-23] MEDS ORDERED: ROPIVACAINE 5 MG/ML 30 ML VIAL ONE (08:30)
[2023-09-23] MEDS ORDERED: HYDROmorphone (PF) 1 MG/ML ONE (08:30)
[2023-09-23] MEDS ORDERED: NEOSTIGMINE 1 MG/ML 10 ML VIAL ONE (08:30)
[2023-09-23] MEDS ORDERED: DEXAMETHASONE SOD PHOSPHATE 4 MG/ML 1 ML VIAL ONE (08:30)
[2023-09-23] MEDS ORDERED: SUCCINYLCHOLINE CHLORIDE 200 MG/10 ML VIAL IV ONE (08:30)
[2023-09-23] MEDS ORDERED: SODIUM CHLORIDE 0.9% 100 ML BAG ONE (08:30)
[2023-09-23] MEDS ORDERED: LIDOCAINE 1% INJ 10MG/ML (20 ML MDV) ONE (08:30)
[2023-09-23] MEDS ORDERED: GLYCOPYRROLATE 0.2 MG/ML 2 ML VIAL ONE (08:30)
[2023-09-23] MEDS ORDERED: SODIUM CHLORIDE 0.9% (PF) 10 ML VIAL ONE (08:30)
[2023-09-23] MEDS ORDERED: fentaNYL (PF) 50 MCG/ML 2 ML AMP ONE (08:30)
[2023-09-23] MEDS ORDERED: PROPOFOL 10 MG/ML 20 ML VIAL IV ONE (08:30)
[2023-09-23] MEDS ORDERED: ROCURONIUM 10 MG/ML (5 ML VIAL) IV ONE (08:30)
[2023-09-23] MEDS ORDERED: BUPIVACAINE (PF) 0.5% 30 ML VIAL SQ ONE (08:50)
--- NOTE | 2023-09-23 11:57 | P.OP ---
Date of Procedure: 09/23/23 Preoperative Diagnosis: Lung Cancer Hx of prostate cancer s/p robotic radical prostatectomy Postoperative Diagnosis: Same Procedure(s) Performed: 1. Bronchoscopy 2. Right robotic assisted thorascopic surgery with right upper lobectomy 3. Intercostal nerve block - 2 levels 4. Mediastinal lymph node dissection Anesthesia: GOSIA Surgeon: Jhony Whalen Estimated Blood Loss (ml): 10 IV fluids (ml): 1,000 Pathology: other (RUL, LN Stations 7,8,9,10,11R) Condition: stable Disposition: PACU Indications for Procedure: This patient is a 68 year-old male smoker who underwent a cxr as pre-operative clearence prior to robotic prostatectomy performed for prostatic cancer which revealed a 3cm lung nodule. Further work-up including biopsy revealed NSCLC, and PET/CT revealed some uptake in the R4 and L4 regions. EBUS of R4 and R2 lymph nodes was negative. No L4 lymph node was identified on EBUS. He underwent mediastinoscopy which also revealed negative R4 station and no discernable lymph node was identified in the L4 region. Lobectomy was recommended for his Stage 1b lesion and the patient was in agreement to proceed. Operative Findings: Significant adhesions of the right upper lobe to apex and mediastinum from previous chest tubes. No evidence of tumor invasion into surrounding structures. Description of Procedure: The patient underwent left radial arterial line placement by the anesthesia team in pre-op. He was brought back to the operating room and placed on the table in the supine position. He was intubated with a 41F left sided DI which was confirmed with bronchoscopy. A diagnostic bronchoscopy was also performed which revealed no lesions or abnormalities in the entire tracheo-bronchial tree especially the right upper lobe. There was minimal to no secretions. The patient was then positioned in the left lateral decubitus position and his right chest was prepped and draped in the usual sterile fashion. The double lumen tube position was once again checked using bronchoscopy. A time-out was performed and antibiotics were given. The right lung was isolated. We made a 1cm incision in the 8th intercostal space mid axillary line. The 8mm trocar was inserted into the chest bluntly. The robotic camera was inserted and there was no injury to the lung and there was good lung isolation. We placed then placed 12mm trocars 10cm anteriorly and 10cm posteriorly in the 8th interco stal space. A 4th 8mm port was placed posteriorly in the 7th ICS posteriorly. We placed a 15mm customer service assistant port in between ports 1 and 2 10th ICS above the diaphragm. Intercostal nerve block was performed at 3 levels. The Da Shamar Xi robot was then docked. Attention was then turned towards the inferior pulmonary ligament which was taken down using the bipolar cautery. This dissection was carried upward with the bipolar cautery posteriorly along the mediastinal pleura. Level 9,8 and 7 lymph nodes were harvested here. The right mainstem bronchus was identified and followed up into the lung. The feliberto in between the RUL bronchus and bronchus intermedius was dissected using the bipolar cautery and bluntly. At this point, there was significant adhesions of the upper lobe to the chest wall and mediastinum which were taken down with bipolar. The level 10 lymph node was harvested at this point. The anterior mediastinal pleura was taken down using bipolar. At this point the superior pulmonary vein was identified and encircled with a vessel loop taking care to preserve the vein to the middle lobe. A robotic white load was fired across the vein. Next, the truncus arteriosus was circumferentially dissected and encircled with a vessel loop. Once again, the robotic white load was fired across this vessel. There was no posterior ascending branch of the pulmonary artery. Attention was then turned posterior towards the upper lobe bronchus. This was bluntly encircled with a vessel loop and a robotic green load was fired across the upper lobe bronchus. Lastly the anterior and posterior fissures were divided using multiple firings of the robotic green and black load stapler. The lung was placed in a retrieval bag, and the right chest was irrigated with water and a leak test on the bronchus was performed which was negative. The robot was undocked, the specimen was removed from the chest cavity and a 28F chest tube was placed via the most anterior incision and two lung ventilation was resumed. The patient was extubated and transferred to recovery in stable condition.
--- NOTE | 2023-09-23 12:59 | XR ---
EXAMINATION TYPE: XR chest 1V portable DATE OF EXAM: 09/23/2023 12:43 PM CLINICAL INDICATION:Male, 68 years old with history of post wedge resection; [facility] COMPARISON: Chest radiographs from08/21/2023 TECHNIQUE: XR chest 1V portable Frontal view of the chest. FINDINGS: Lungs/Pleura: There is no evidence of pleural effusion, focal consolidation, or pneumothorax. Pulmonary vascularity: Unremarkable. Heart/mediastinum: Cardiomediastinal silhouette is unremarkable. Musculoskeletal: No acute osseous pathology. Other findings: None Lines/Tubes: Right thoracotomy tube is present without evidence of pneumothorax. IMPRESSION: Right thoracotomy tube with small pneumothorax.
[2023-09-23] MEDS: HYDROmorphone 0.5 MG/0.5 ML SYRINGE IVP PRN ×2 (14:08→16:34)
[2023-09-23] MEDS ORDERED: ONDANSETRON 4 MG/2 ML VIAL IVP PRN (17:33)
[2023-09-23] MEDS ORDERED: ALBUTEROL NEBULIZED 2.5 MG/3 ML INHALATION PRN (17:33)
[2023-09-23] MEDS ORDERED: DEXTROSE 5%-0.45% NACL 1,000 ML IV SCH (17:33)
[2023-09-23] MEDS: HEPARIN SODIUM,PORCINE 5,000 UNIT/ML 1 ML VIAL SQ SCH ×2 (17:52→23:47)
[2023-09-23] MEDS: sulfaSALAzine 500 MG TAB PO SCH (20:05)
[2023-09-23] MEDS: ATORVASTATIN 10 MG TAB PO SCH (20:06)
[2023-09-23] MEDS: traMADol 50 MG TAB PO PRN (20:06)
[2023-09-23] MEDS: ACETAMINOPHEN TAB 325 MG TAB PO PRN (23:47)
--- NOTE | 2023-09-24 01:21 | P.CNPUL ---
History of Present Illness Consult date: 09/24/23 Requesting physician: Amara Jarquin Reason for consult: other (Post right-sided VATS with upper lobectomy) Chief complaint: Post right-sided VATS with upper lobectomy History of present illness: I am seeing this patient in consultation today 09/24/2023, as the patient is currently postop day #1 following a right-sided VATS with right upper lobectomy and mediastinal lymph node dissection. Patient is a 68-year-old white male with past medical history significant for hypertension, hyperlipidemia, prostate cancer status/post prostatectomy, COPD, and right upper lobe non-small cell lung cancer diagnosed back on August 01 with robotic bronchoscopy and EBUS. Patient did have a follow-up mediastinoscopy last month to evaluate nondiagnostic lymph nodes. Patient was brought back to the hospital yesterday September 23, and underwent a right robotic-assisted thorascopic surgery with right upper lobectomy and mediastinal lymph node dissection. No immediate perioperative complications were reported. Patient is currently being monitored on the cardiac stepdown unit. He is sitting up in bed, on 2 L/m nasal cannula, in no acute distress. Right-sided chest tube is hooked to suction at -20 cm H2O. An intermittent air leak remains. There is a total of 250 ml serosanguineous output. Chest x-ray following the procedure shows a right thoracotomy tube in place with a small right-sided pneumothorax. No postoperative labs available. He is relatively comfortable, complaining of a mild amount of right lateral chest pain at the chest tube insertion site. He has a combination of tramadol and Tylenol ordered for pain management. Vitals are stable. Review of Systems REVIEW OF SYSTEMS: CONSTITUTIONAL: Denies any recent significant weight loss or weight gain. EYES: Denies change in vision. EARS, NOSE, MOUTH, THROAT: Denies headaches, denies sore throat. CARDIOVASCULAR: Denies chest pain, palpitations or syncopal episodes. RESPIRATORY: Denies shortness of breath, cough, congestion or hemoptysis. GASTROINTESTINAL: Denies change in appetite, abdominal pain, nausea and vomiting, or diarrhea GENITOURINARY: Denies hematuria, denies infections. Admits dribbling and urinary incontinence following prostatectomy MUSKULOSKELETAL: Admits right lateral chest pain as described in HPI. INTEGUMENTARY: Denies rash, denies eczema. NEUROLOGICAL: Denies recent memory loss, no recent seizure activity. PSYCHIATRIC: Denies anxiety, denies depression. HEMATOLOGIC/LYMPHATIC: Denies anemia, denies enlarged lymph node Past Medical History Past Medical History: Cancer, COPD, Hyperlipidemia, Hypertension, Osteoarthritis (OA), Prostate Disorder Additional Past Medical History / Comment(s): Current right lung cancer. Hx prostate cancer 05/19. Colitis. Hx Pneumothorax after mediastinoscopy 08/15/23. History of Any Multi-Drug Resistant Organisms: None Reported Past Surgical History: Prostate Surgery Additional Past Surgical History / Comment(s): Cataracts removed, colonoscopy, prostatectomy05/02/23, bronhoscopy, lung biopsy, mediastinosscopy. Past Anesthesia/Blood Transfusion Reactions: Previous Problems w/ Anesthesia Additional Past Anesthesia/Blood Transfusion Reaction / Comment(s): Woke during cataract surgery. Smoking Status: Vaper - Past Family History Mother Family Medical History: Cancer Medications and Allergies Home Medications Medication Instructions Recorded Confirmed Type Atorvastatin Calcium 10 mg PO HS 04/25/23 09/16/23 History Losartan Potassium [Cozaar] 25 mg PO QAM 04/25/23 09/16/23 History sulfaSALAzine [Sulfasalazine] 1,000 mg PO BID 04/25/23 09/16/23 History Apalutamide [Erleada] 4 tab PO DAILY 07/29/23 09/16/23 History Albuterol Inhaler [Ventolin Hfa 1 - 2 puff INHALATION Q6H PRN 08/14/23 09/16/23 History Inhaler] Albuterol Nebulized [Ventolin 2.5 mg INHALATION Q6H PRN 08/14/23 09/16/23 History Nebulized] Multivitamins, Thera [Multivitamin 1 tab PO DAILY 08/14/23 09/16/23 History (formulary)] Acetaminophen Tab [Tylenol] 650 mg PO Q4HR PRN tab 08/17/23 09/16/23 Rx Allergies Allergy/AdvReac Type Severity Reaction Status Date / Time No Known Allergies Allergy Verified 09/23/23 05:59 Physical Exam Vitals: Vital Signs Temp Pulse Pulse Resp BP BP Pulse Ox 09/23/23 21:43 97 09/23/23 20:00 87 19 09/23/23 16:39 98 F 82 19 136/72 94 L 09/23/23 15:00 77 16 136/58 97 09/23/23 14:30 81 16 112/61 97 09/23/23 14:00 79 16 121/64 97 09/23/23 13:45 77 16 117/74 99 09/23/23 13:30 76 16 110/62 98 09/23/23 13:20 78 16 109/55 100 09/23/23 13:05 71 16 114/59 97 09/23/23 12:57 78 16 118/62 100 09/23/23 12:35 70 16 128/60 100 09/23/23 12:18 73 16 122/58 100 09/23/23 12:02 97 F L 74 14 131/61 100 09/23/23 06:55 71 16 140/68 99 09/23/23 06:13 97.1 F L 97 16 149/74 95 Intake and Output 09/23/23 09/23/23 09/24/23 14:59 22:59 06:59 Intake Total 1450 100 Output Total 120 Balance 1450 -20 Intake: IV 1450 100 Output: Chest Tube Drainage 70 Right 70 Pleural Fluid 50 Other: Voiding Method External Catheter Weight 85.4 kg GENERAL EXAM: Alert, 68-year-old white male appearing stated age, fairly comfortable in no apparent distress. HEAD: Normocephalic and atraumatic EYES: Normal reaction of pupils, equal size. NOSE: Clear with pink turbinates. THROAT: No erythema or exudates. NECK: No masses, no JVD. CHEST: No chest wall deformity. No subcutaneous emphysema. Right thoracotomy chest tube attached to the atrium and suction at -20 cm H2O, with an intermittent air leak. LUNGS: Equal air entry with no crackles, wheeze, rhonchi or dullness. On 2 L/m nasal cannula. No conversational dyspnea or accessory muscle use.. CVS: S1 and S2 normal with no audible murmur, regular rhythm. No extra heart sounds ABDOMEN: No hepatosplenomegaly, active bowel sounds, no guarding or rigidity. SPINE: No scoliosis or deformity SKIN: No rashes CENTRAL NERVOUS SYSTEM: No focal deficits, tone is normal in all 4 extremities. EXTREMITIES: There is no peripheral edema, clubbing, or cyanosis. Peripheral pulses are intact. Results - Laboratory Findings Abnormal lab findings: Abnormal Labs 09/14/23 08:11 Crossmatch See Detail - Diagnostic Findings Chest x-ray: image reviewed Assessment and Plan Assessment: Right upper lobe non-small cell lung cancer status postoperative day #1 following a right-sided VATS with right upper lobectomy and mediastinal lymph node dissection. Severe COPD, with an FEV1 46% of predicted, stable History of prostate cancer status post prostatectomy, maintained on a Erleada. History of hypertension History of hyperlipidemia Remote history of nicotine dependence Plan: Patient's medications, labs, chest x-ray reviewed. Chest x-ray revealed an appropriately placed right thoracotomy tube and a small right sided p neumothorax. Chest tube is currently attached to suction at -20 cm H2O. There is an intermittent air leak. On 2 L/m nasal cannula, in no distress. Incentive spirometer is at bedside and requires encouragement. Follow-up chest x-ray scheduled for the morning. Labs are ordered for the AM. Pain is relatively well controlled with current analgesics. Protonix for GI prophylaxis. Heparin for DVT prophylaxis. We will continue to follow. I have personally seen and examined the patient, performed the documentation and the assessment and plan as written. Number of minutes spent on the visit:20 Time with Patient: Greater than 30
[2023-09-24] MEDS: traMADol 50 MG TAB PO PRN ×2 (02:41→10:23)
[2023-09-24] MEDS: PANTOPRAZOLE 40 MG TABLET PO SCH (06:37)
[2023-09-24] MEDS: ACETAMINOPHEN TAB 325 MG TAB PO PRN (06:37)
[2023-09-24] MEDS ORDERED: MAGNESIUM HYDROXIDE 2,400 MG/30 ML CUP PO PRN (07:24)
[2023-09-24] MEDS ORDERED: bisacodyL 10 MG SUPP RECTAL PRN (07:24)
--- NOTE | 2023-09-24 07:48 | P.PN ---
Subjective Progress Note Date: 09/24/23 Principal diagnosis: Right upper lobe non small cell lung cancer. History of prostate cancer status post radical prostatectomy 04/2023 with subsequent urinary incontinence, hypertension, hyperlipidemia, severe COPD, previous tobacco dependence, pneumothorax after mediastinoscopy in 07/2023 POD #1 bronchoscopy, robotic assisted thoracoscopic right upper lobectomy, intercostal nerve block at 2 levels, mediastinal lymph node dissection The patient was seen and examined this morning sitting up in bed in no acute distress but does admit to post surgical pain which is expected, he just received pain medication. Denies shortness of breath. Currently on 2 LPM NC with oxygen saturation in the mid 90s. Right pleural chest tube present to continous wall suction, intermittent air leak present, mostly with expiration and coughing. CXR reviewed, labs pending. Patient has been out of bed to the commode, he has voided but not captured/documented. No other new concerns. Objective - Vital Signs Vital signs: Vital Signs Temp 98.4 F 09/23/23 20:00 Pulse 86 09/24/23 04:00 Resp 18 09/24/23 04:00 BP 126/60 09/24/23 04:00 Pulse Ox 94 L 09/24/23 04:00 FiO2 Intake & Output 09/23/23 09/24/23 09/24/23 18:59 06:59 18:59 Intake Total 1550 Output Total 120 85 Balance 1430 -85 Weight 85.4 kg Intake: IV 1550 Output: Chest Tube Drainage 70 85 Right 70 85 Pleural Fluid 50 Other: Voiding Method External Catheter External Catheter - Exam CONSTITUTIONAL: Appears somewhat comfortable, cooperative, no acute distress RESPIRATORY: Lungs sounds diminished bilaterally. Respirations even, nonlabored. Currently on 2 LPM NC with oxygen saturation 96%. Able to achieve 500 mL on incentive spirometry. Strong cough. CARDIOVASCULAR: S1, S2 present. Regular rate and rhythm, sinus rhythm on telemetry. Palpable peripheral pulses bilaterally. No edema present. No calf pain or tenderness noted. SCDs present. GASTROINTESTINAL: Abdomen soft, nontender, nondistended. Hypoactive bowel sounds present 4 quadrants. Tolerating diet. Positive flatus GENITOURINARY: Continues to void although not captured and measured INTEGUMENTARY: Skin is warm and dry NEUROLOGIC: Cranial nerves II through XII intact MUSKULOSKELETAL: Able to move all extremities, strength equal bilaterally PSYCHIATRIC: Alert and oriented to person place and time, appropriate affect, intact judgment and insight INVASIVE LINES AND TUBES: Right pleural chest tube present and connected to wall suction, intermittent air leaks present, 250 mL serosanguineous drainage since surgery - Labs Labs: Abnormal Lab Results - Last 24 Hours (Table) 09/14/23 Range/Units 08:11 Crossmatch See Detail - Imaging and Cardiology Chest x-ray: image reviewed Assessment and Plan Assessment: Right upper lobe non small cell lung cancer, status post robotic assisted thoracoscopic right upper lobectomy, mediastinal lymph node dissection Pain, secondary to surgery, status post intercostal nerve block at 2 levels History of prostate cancer status post radical prostatectomy 04/2023 with subsequent urinary incontinence History of hypertension History of hyperlipidemia Severe COPD, FEV1 53% of predicted, DLCO 53% Previous tobacco dependence Pneumothorax after mediastinoscopy in 07/2023 Plan: Continue chest tube to continous wall suction, monitor for air leak resolution Wean oxygen as tolerated, encourage incentive spirometry 10x every hour, bronchodilators per pulmonology Increase activity as tolerated, out of bed for all meals Pain control with current medication regimen, will add toradol for better pain control Will monitor daily labs and CXR, final pathology pending Continue home medications Smoking cessation counseling and education offered, patient encouraged to continue to refrain from smoking More recommendations to follow
[2023-09-24] MEDS ORDERED: APALUTAMIDE 60 MG PO SCH (09:00)
[2023-09-24] MEDS: MULTIVITAMINS, THERA 1 EACH TAB PO SCH (09:18)
[2023-09-24] MEDS: KETOROLAC 15 MG/ML 1 ML VIAL IVP PRN ×2 (09:18→15:39)
[2023-09-24] MEDS: HEPARIN SODIUM,PORCINE 5,000 UNIT/ML 1 ML VIAL SQ SCH ×2 (09:18→15:39)
[2023-09-24] MEDS: LOSARTAN 25 MG TAB PO SCH (09:19)
[2023-09-24] MEDS: sulfaSALAzine 500 MG TAB PO SCH ×2 (09:19→20:27)
[2023-09-24 09:42] LABS: Basophils % (A) 0 %; Eosinophils % (A) 0 %; HCT 34.1 % (39.0-53.0); HGB 11.1 gm/dL (13.0-17.5); Lymphocytes # (A) 0.8 k/uL (1.0-4.8); Lymphocytes % (A) 7 %; MCH 31.5 pg (25.0-35.0); MCHC 32.6 g/dL (31.0-37.0); MCV 96.6 fL (80.0-100.0); Mean Platelet Volume 7.3; Monocytes # (A) 0.4 k/uL (0-1.0); Monocytes % (A) 4 %; Neutrophils # (A) 10.5 k/uL (1.3-7.7); Neutrophils % (A) 88 %; Platelet Count 303 k/uL (150-450); RBC 3.53 m/uL (4.30-5.90); RDW 13.8 % (11.5-15.5)
[2023-09-24 09:58] LABS: African American GFR (CKD) >90 (>60 ml/min/1.73 sqM); Anion Gap 10 mmol/L; Blood Urea Nitrogen 11 mg/dL (9-20); Calcium 8.5 mg/dL (8.4-10.2); Carbon Dioxide 26 mmol/L (22-30); Chloride 99 mmol/L (98-107); Glucose 121 mg/dL (74-99); Non-African American GFR(CKD) >90 (>60 ml/min/1.73 sqM); Potassium 3.7 mmol/L (3.5-5.1); Sodium 135 mmol/L (137-145)
[2023-09-24] MEDS: ALBUTEROL NEBULIZED 2.5 MG/3 ML INHALATION PRN (10:01)
[2023-09-24] MEDS ORDERED: POTASSIUM BICARBONATE/CIT AC 20 MEQ TABLET.EFF PO ONE (10:14)
[2023-09-24] MEDS: APALUTAMIDE 60 MG PO SCH (10:24)
--- NOTE | 2023-09-24 12:26 | P.ANPRN ---
Procedure Note - Anesthesia - Nerve Block Performed Right Erector Spinae Single Time Out Performed: Yes Date of Procedure: 09/23/23 Procedure Start Time: 06:54 Procedure Stop Time: 06:56 Location of Patient: PreOp Indication: Acute Post-Operative Pain, Requested by Surgeon Sedation Type: Sedate with meaningful contact maintained Preparation: Sterile Prep Position: Sitting Needle Types: Pajunk Needle Gauge: 21 Ultrasound used to visualize needle placement: Yes Ultrasound used to observe medication spread: Yes Blood Aspirated: No Pain Paresthesia on Injection Noted: No Resistance on Injection: Normal Image Stored and Saved: Yes Events: Uneventful and Well Tolerated (Ropivacaine 0.5% 15 mL plus dexamethasone 4 mg plus normal saline 10 mL given at T6 right-sided)
--- NOTE | 2023-09-24 14:58 | XR ---
EXAMINATION TYPE: XR chest 1V DATE OF EXAM: 09/24/2023 COMPARISON: 09/23/2023 INDICATION: Post wedge resection TECHNIQUE: Single frontal view of the chest is obtained. FINDINGS: The heart size is normal. The pulmonary vasculature is normal. Right side chest tube is present. Right apical pneumothorax remains present. This appears diminished in size from comparison. There is fullness through the right hilar region. IMPRESSION: 1. Right apical pneumothorax 2. Right-sided chest tube
[2023-09-24] MEDS ORDERED: ADENOSINE 3 MG/ML 2 ML VIAL IVP STA (16:31)
[2023-09-24] MEDS ORDERED: METOPROLOL TARTRATE 5 MG/5 ML VIAL IVP PRN ×2 (16:34→17:04)
[2023-09-24] MEDS ORDERED: DILTIAZEM 5 MG/ML 5 ML VIAL IVP STA (16:39)
--- NOTE | 2023-09-24 16:40 | P.GSCN ---
History of Present Illness Consult date: 09/24/23 History of present illness: This is a 68-year-old male with history of prostate cancer treated with a radical prostatectomy and pelvic lymph node dissection in April. Of note he did have extensive involvement of the prostate, and did have positive pelvic lymph nodes, he is currently on Lupron and Xtandi. He underwent right upper lobe lobectomy by Dr. Whalen yesterday. Attempt to place the Santa catheter was unsuccessful prior to the case due to bladder neck contracture. He has been having incontinence post surgery. He indicated he's able to void with a good stream no straining with voiding. Since his surgery he has been able to void without difficulties. Denies any dysuria or gross hematuria. Review of Systems - Constitutional Denies fever, Denies weight loss - EENT Ears, nose, mouth and throat: Denies dysphagia - Cardiovascular Denies chest pain, Denies shortness of breath - Respiratory Denies cough, Denies 7 - Gastrointestinal Reports as per HPI - Genitourinary Denies dysuria, Denies hematuria, Denies urinary retention - Neurological Denies headaches, Denies syncope Past Medical History Past Medical History: Cancer, COPD, Hyperlipidemia, Hypertension, Osteoarthritis (OA), Prostate Disorder Additional Past Medical History / Comment(s): Current right lung cancer. Hx prostate cancer 05/19. Colitis. Hx Pneumothorax after mediastinoscopy 08/15/23. History of Any Multi-Drug Resistant Organisms: None Reported Past Surgical History: Prostate Surgery Additional Past Surgical History / Comment(s): Cataracts removed, colonoscopy, prostatectomy05/02/23, bronhoscopy, lung biopsy, mediastinosscopy. Past Anesthesia/Blood Transfusion Reactions: Previous Problems w/ Anesthesia Additional Past Anesthesia/Blood Transfusion Reaction / Comm: Woke during cataract surgery. Smoking Status: Vaper - Past Family History Mother Family Medical History: Cancer Medications and Allergies Home Medications Medication Instructions Recorded Confirmed Type RX: Atorvastatin Calcium 10 mg PO HS 04/25/23 09/16/23 History RX: Losartan Potassium [Cozaar] 25 mg PO QAM 04/25/23 09/16/23 History RX: sulfaSALAzine [Sulfasalazine] 1,000 mg PO BID 04/25/23 09/16/23 History RX: Apalutamide [Erleada] 4 tab PO DAILY 07/29/23 09/16/23 History RX: Albuterol Inhaler [Ventolin 1 - 2 puff INHALATION Q6H PRN 08/14/23 09/16/23 History Hfa Inhaler] RX: Albuterol Nebulized [Ventolin 2.5 mg INHALATION Q6H PRN 08/14/23 09/16/23 History Nebulized] RX: Multivitamins, Thera 1 tab PO DAILY 08/14/23 09/16/23 History [Multivitamin (formulary)] RX: Acetaminophen Tab [Tylenol] 650 mg PO Q4HR PRN tab 08/17/23 09/16/23 Rx Allergies Allergy/AdvReac Type Severity Reaction Status Date / Time No Known Allergies Allergy Verified 09/23/23 05:59 Surgical - Exam Vital Signs Temp Pulse Resp BP Pulse Ox 97.1 F L 97 16 149/74 95 09/23/23 06:13 09/23/23 06:13 09/23/23 06:13 09/23/23 06:13 09/23/23 06:13 - General no distress, no pain - Eyes normal ocular movement, no pale - ENT normal nares, normal mucosa - Respiratory normal expansion, normal respiratory effort - Abdomen Abdomen: soft, non tender, no distended - Psychiatric oriented to time, oriented to person, oriented to place Results - Labs 09/24/23 08:53 09/24/23 08:53 Abnormal Lab Results - Last 24 Hours (Table) 09/24/23 09/24/23 Range/Units 08:53 08:53 WBC 12.0 H (3.8-10.6) k/uL RBC 3.53 L (4.30-5.90) m/uL Hgb 11.1 L (13.0-17.5) gm/dL Hct 34.1 L (39.0-53.0) % Neutrophils # 10.5 H (1.3-7.7) k/uL Lymphocytes # 0.8 L (1.0-4.8) k/uL Sodium 135 L (137-145) mmol/L Creatinine 0.59 L (0.66-1.25) mg/dL Glucose 121 H (74-99) mg/dL Diabetes panel 09/24/23 Range/Units 08:53 Sodium 135 L (137-145) mmol/L Potassium 3.7 (3.5-5.1) mmol/L Chloride 99 (98-107) mmol/L Carbon Dioxide 26 (22-30) mmol/L BUN 11 (9-20) mg/dL Creatinine 0.59 L (0.66-1.25) mg/dL Glucose 121 H (74-99) mg/dL Calcium 8.5 (8.4-10.2) mg/dL Calcium panel 09/24/23 Range/Units 08:53 Calcium 8.5 (8.4-10.2) mg/dL Pituitary panel 09/24/23 Range/Units 08:53 Sodium 135 L (137-145) mmol/L Potassium 3.7 (3.5-5.1) mmol/L Chloride 99 (98-107) mmol/L Carbon Dioxide 26 (22-30) mmol/L BUN 11 (9-20) mg/dL Creatinine 0.59 L (0.66-1.25) mg/dL Glucose 121 H (74-99) mg/dL Calcium 8.5 (8.4-10.2) mg/dL Adrenal panel 09/24/23 Range/Units 08:53 Sodium 135 L (137-145) mmol/L Potassium 3.7 (3.5-5.1) mmol/L Chloride 99 (98-107) mmol/L Carbon Dioxide 26 (22-30) mmol/L BUN 11 (9-20) mg/dL Creatinine 0.59 L (0.66-1.25) mg/dL Glucose 121 H (74-99) mg/dL Calcium 8.5 (8.4-10.2) mg/dL Assessment and Plan Assessment: 68-year-old male status post robotic radical prostatectomy in in April unable to place a Santa catheter prior to its his right lombectomy due to bladder neck contracture. He's been able to void without any difficulties post surgery -At this point from urology standpoint no further intervention given that he is able to void without difficulties. I do recommend obtaining a bladder scan to rule out incomplete bladder emptying. -Advised to follow up as an outpatient for his Lupron continued prostate cancer care
[2023-09-24] MEDS ORDERED: AMIODARONE 360 MG in DEXTROSE 5% IN WATER 200 ML IV ONE ×2 (16:56)
[2023-09-24] MEDS: DEXTROSE 5% IN WATER 100 ML with AMIODARONE 150 MG IV ONE ×4 (17:26→18:50)
[2023-09-24 17:35] LABS: HCT 33.4 % (39.0-53.0); HGB 11.1 gm/dL (13.0-17.5); MCH 31.7 pg (25.0-35.0); MCHC 33.1 g/dL (31.0-37.0); MCV 95.7 fL (80.0-100.0); Platelet Count 329 k/uL (150-450); RBC 3.49 m/uL (4.30-5.90); RDW 13.9 % (11.5-15.5); WBC 11.8 k/uL (3.8-10.6)
[2023-09-24 18:01] LABS: African American GFR (CKD) >90 (>60 ml/min/1.73 sqM); Anion Gap 8 mmol/L; Blood Urea Nitrogen 12 mg/dL (9-20); Calcium 8.4 mg/dL (8.4-10.2); Carbon Dioxide 25 mmol/L (22-30); Chloride 99 mmol/L (98-107); Glucose 130 mg/dL (74-99); Magnesium 1.8 mg/dL (1.6-2.3); Non-African American GFR(CKD) >90 (>60 ml/min/1.73 sqM); Potassium 3.7 mmol/L (3.5-5.1); Sodium 132 mmol/L (137-145)
--- NOTE | 2023-09-24 18:07 | P.PN ---
Progress Note - Text Progress Note Date: 09/24/23 A- team: Indication: Called the bedside for patient with tachycardic heart rate 200s Arrived on Scene to find: A very pleasant 68-year-old male who is day 1 postop right upper lobectomy secondary to non-small lung cancer completed by cardiothoracic surgeon, Dr. Whalen. Patient appears somewhat comfortable but does report feeling palpitations and mild chest discomfort. Patient found to have a heart rate 207 otherwise hemodynamically stable with blood pressure 133/71, respiratory rate 18, and SpO2 of 92% on 4 L. General: Mild distress Derm: warm, dry Head: atraumatic, normocephalic, symmetric Eyes: EOMI, no lid lag, anicteric sclera Mouth: no lip lesion, mucus membranes moist Cardiovascular: Irregularly irregular with tachycardic rate. Respiratory: Respirations even, regular, and unlabored on 4 L O2 via nasal cannula. Abdominal: soft, nontender to palpation, no guarding, no appreciable organomegaly Ext: no gross muscle atrophy, no edema, no contractures Neuro: CN II-XI grossly intact, no focal neuro deficits Psych: Alert, oriented, appropriate affect Assessment: New-onsetAtrial fibrillation with RVR Plan: -Patient given metoprolol 5 mg IVP bolus 2 repeated doses resulting in rate control and conversion back into normal sinus rhythm but patient fluctuating back and forth between normal sinus and atrial fibrillation with RVR -Patient given amnio bolus 150 mg IVPB over 10 minutes and started on amiodarone maintenance infusion -Orders placed for a stat CBC, BMP, and magnesium -At this time we will hold off on anticoagulation secondary to patient's recent surgery and currently only day 1 postoperative status. -Discussed case with cardiothoracic surgery team. Patient being transferred to ICU for higher level of care and monitoring and they will see him further care of patient at this time . Upon follow-up of labs: CBC showing stable leukocytosis with WBC count of 11.8 and postoperative hemoglobin of 11.1. BMP revealing mild hyponatremia with sodium of 132 otherwise normal findings with potassium of 3.7, BUN of 12, creatinine 0.65, GFR of greater than 90, and glucose of 1:30. Magnesium 1.8 and calcium of 8.4. A Total of 31 minutes of critical care time was spent on the complex care of this patient.
[2023-09-24 18:30] LABS: Glucose,Whole Blood 132 mg/dL (70-110)
[2023-09-24] MEDS ORDERED: Magnesium Replacement Protocol 1 EACH MISC MISCELLANE PRN (19:34)
[2023-09-24] MEDS ORDERED: Potassium Replacement Protocol 1 EACH MISC MISCELLANE PRN (19:34)
[2023-09-24] MEDS ORDERED: MAGNESIUM SULFATE-D5W PMX 1 GM in DEXTROSE/WATER 1 100ML.BAG IVPB ONE (19:34)
[2023-09-24] MEDS: METOPROLOL TARTRATE 25 MG TAB PO SCH (19:37)
[2023-09-24] MEDS: ATORVASTATIN 10 MG TAB PO SCH (19:37)
[2023-09-24] MEDS ORDERED: POTASSIUM CHLORIDE ER 20 MEQ TAB.ER PO SCH (20:00)
[2023-09-24] MEDS ORDERED: SENNOSIDES-DOCUSATE SODIUM 1 EACH TAB PO SCH (21:00)
[2023-09-25] MEDS: AMIODARONE 450 MG in DEXTROSE 5% IN WATER 250 ML IV SCH ×4 (00:11→12:48)
[2023-09-25] MEDS: HEPARIN SODIUM,PORCINE 5,000 UNIT/ML 1 ML VIAL SQ SCH ×4 (00:14→23:08)
[2023-09-25 04:52] LABS: HCT 32.7 % (39.0-53.0); HGB 11.1 gm/dL (13.0-17.5); MCH 32.5 pg (25.0-35.0); MCHC 33.8 g/dL (31.0-37.0); MCV 96.2 fL (80.0-100.0); Mean Platelet Volume 7.1; Platelet Count 303 k/uL (150-450); WBC 13.6 k/uL (3.8-10.6)
[2023-09-25 05:10] LABS: African American GFR (CKD) >90 (>60 ml/min/1.73 sqM); Anion Gap 6 mmol/L; Blood Urea Nitrogen 12 mg/dL (9-20); Calcium 8.5 mg/dL (8.4-10.2); Carbon Dioxide 28 mmol/L (22-30); Chloride 99 mmol/L (98-107); Glucose 108 mg/dL (74-99); Magnesium 2.1 mg/dL (1.6-2.3); Non-African American GFR(CKD) >90 (>60 ml/min/1.73 sqM); Sodium 133 mmol/L (137-145)
[2023-09-25] MEDS: PANTOPRAZOLE 40 MG TABLET PO SCH (06:02)
[2023-09-25] MEDS ORDERED: SENNOSIDES-DOCUSATE SODIUM 1 EACH TAB PO PRN (06:49)
[2023-09-25] MEDS ORDERED: POTASSIUM CHLORIDE ER 20 MEQ TAB.ER PO SCH (07:00)
--- NOTE | 2023-09-25 07:44 | P.PN ---
Subjective Progress Note Date: 09/25/23 Principal diagnosis: Right upper lobe non small cell lung cancer. History of prostate cancer status post radical prostatectomy 04/2023 with subsequent urinary incontinence, hyperte nsion, hyperlipidemia, severe COPD, previous tobacco dependence, pneumothorax after mediastinoscopy in 07/2023 POD #1 bronchoscopy, robotic assisted thoracoscopic right upper lobectomy, intercostal nerve block at 2 levels, mediastinal lymph node dissection New onset afib with RVR, unexpected although not uncommon after surgical lobectomy, currently sinus rhythm The patient was seen and examined this morning laying in bed in no acute distress, sitting up about to eat breakfast. Complains of some pain with deep breaths and coughing, better controlled than yesterday. Currently on 3 LPM NC with oxygen saturation in the low 90s. Right pleural chest tube present to continous wall suction, intermittent air leak present, mostly with expiration and coughing. CXR, labs reviewed. Went into Afib w/ RVR last night, treated with IVP lopressor and initiation of amiodarone, currently sinus rhythm. Was transferred to ICU for closer monitoring. Patient has been able to void without difficulty. No other new concerns. Objective - Vital Signs Vital signs: Vital Signs Temp 98.2 F 09/25/23 04:00 Pulse 106 H 09/25/23 06:00 Resp 19 09/25/23 06:00 BP 138/75 09/25/23 06:00 Pulse Ox 95 09/25/23 06:00 FiO2 Intake & Output 09/24/23 09/25/23 09/25/23 18:59 06:59 18:59 Intake Total 180 380 Output Total 355 525 Balance -175 -145 Weight 86.5 kg Intake: IV 380 Dextrose 5% in Water 100 100 ml @ 618 mls/hr IV .Q10M ONE with Amiodarone 150 mg Rx#:[id number] Dextrose 5% in Water 100 100 ml @ 618 mls/hr IV .Q10M ONE with Amiodarone 150 mg Rx#:[id number] Invasive Line 2 40 Invasive Line 3 40 Magnesium Sulfate-D5w Pmx 100 1 gm In Dextrose/Water 1 100ml.bag @ 100 mls/hr IVPB ONCE ONE Rx#: [id number] Oral 180 Output: Chest Tube Drainage 55 Right 55 Drainage 130 Right Chest 130 Urine 300 395 Other: Voiding Method External Catheter Bedside Commode Urinal # Voids 0 # Bowel Movements 1 - Exam CONSTITUTIONAL: Appears comfortable, cooperative, no acute distress RESPIRATORY: Lungs sounds diminished bilaterally. Respirations even, nonlabored. Currently on 3 LPM NC with oxygen saturation 92%. Able to achieve 750 mL on incentive spirometry. Strong cough. CARDIOVASCULAR: S1, S2 present. Regular rate and rhythm, sinus rhythm on telemetry. Palpable peripheral pulses bilaterally. No edema present. No calf pain or tenderness noted. SCDs present. GASTROINTESTINAL: Abdomen soft, nontender, nondistended. Active bowel sounds present 4 quadrants. Tolerating diet. Positive bowel movement 09/24 GENITOURINARY: Continues to void INTEGUMENTARY: Skin is warm and dry NEUROLOGIC: Cranial nerves II through XII intact MUSKULOSKELETAL: Able to move all extremities, strength equal bilaterally PSYCHIATRIC: Alert and oriented to person place and time, appropriate affect, intact judgment and insight INVASIVE LINES AND TUBES: Right pleural chest tube present and connected to wall suction, intermittent air leak present, 200 mL serosanguineous drainage in the last 24 hours - Allied health notes Allied health notes reviewed: nursing - Labs CBC & Chem 7: 09/25/23 03:39 09/25/23 03:39 Labs: Abnormal Lab Results - Last 24 Hours (Table) 09/14/23 09/24/23 09/24/23 Range/Units 08:11 08:53 08:53 WBC 12.0 H (3.8-10.6) k/uL RBC 3.53 L (4.30-5.90) m/uL Hgb 11.1 L (13.0-17.5) gm/dL Hct 34.1 L (39.0-53.0) % Neutrophils # 10.5 H (1.3-7.7) k/uL Lymphocytes # 0.8 L (1.0-4.8) k/uL Sodium 135 L (137-145) mmol/L Creatinine 0.59 L (0.66-1.25) mg/dL Glucose 121 H (74-99) mg/dL POC Glucose (mg/dL) (70-110) mg/dL Crossmatch See Detail 09/24/23 09/24/23 09/24/23 Range/Units 17:28 17:28 18:29 WBC 11.8 H (3.8-10.6) k/uL RBC 3.49 L (4.30-5.90) m/uL Hgb 11.1 L (13.0-17.5) gm/dL Hct 33.4 L (39.0-53.0) % Neutrophils # (1.3-7.7) k/uL Lymphocytes # (1.0-4.8) k/uL Sodium 132 L (137-145) mmol/L Creatinine 0.65 L (0.66-1.25) mg/dL Glucose 130 H (74-99) mg/dL POC Glucose (mg/dL) 132 H (70-110) mg/dL Crossmatch 09/25/23 09/25/23 Range/Units 03:39 03:39 WBC 13.6 H (3.8-10.6) k/uL RBC 3.40 L (4.30-5.90) m/uL Hgb 11.1 L (13.0-17.5) gm/dL Hct 32.7 L (39.0-53.0) % Neutrophils # (1.3-7.7) k/uL Lymphocytes # (1.0-4.8) k/uL Sodium 133 L (137-145) mmol/L Creatinine 0.62 L (0.66-1.25) mg/dL Glucose 108 H (74-99) mg/dL POC Glucose (mg/dL) (70-110) mg/dL Crossmatch - Imaging and Cardiology Chest x-ray: image reviewed Assessment and Plan Assessment: Right upper lobe non small cell lung cancer, status post robotic assisted thoracoscopic right upper lobectomy, mediastinal lymph node dissection Pain, secondary to surgery, status post intercostal nerve block at 2 levels History of prostate cancer status post radical prostatectomy 04/2023 with subsequent urinary incontinence History of hypertension History of hyperlipidemia Severe COPD, FEV1 53% of predicted, DLCO 53% Previous tobacco dependence Pneumothorax after mediastinoscopy in 07/2023 New onset afib RVR, currently sinus Plan: Chest tube placed to water seal Beta maryan added for rate control. Continue amiodarone, will transition to oral. No anticoagulation as patient just had surgery, still has chest tube Wean oxygen as tolerated, encourage incentive spirometry 10x every hour, bronchodilators per pulmonology Increase activity as tolerated, out of bed for all meals Pain control with current medication regimen Will monitor daily labs and CXR, final pathology pending GI/DVT prophylaxis Continue home medications Smoking cessation counseling and education offered, patient encouraged to continue to refrain from smoking More recommendations to follow
--- NOTE | 2023-09-25 07:46 | XR ---
EXAMINATION TYPE: XR chest 1V portable DATE OF EXAM: 09/25/2023 5:28 AM CLINICAL INDICATION:Male, 68 years old with history of post right upper lobectomy; [facility] COMPARISON: Chest radiographs from 09/24/2023 TECHNIQUE: XR chest 1V portable Frontal view of the chest. FINDINGS: Lungs/Pleura: Persistent curvilinear line which could represent visceral colon. There is no evidence of pleural effusion, focal consolidation, or pneumothorax. Pulmonary vascularity: Unremarkable. Heart/mediastinum: Cardiomediastinal silhouette is unremarkable. Musculoskeletal: No acute osseous pathology. Other findings: None Lines/Tubes: Right thoracotomy tube is present without evidence of pneumothorax. IMPRESSION: Right thoracotomy tube with persistent curvilinear line which could represent visceral pleural line i n the right lung.
[2023-09-25] MEDS: ALBUTEROL NEBULIZED 2.5 MG/3 ML INHALATION PRN ×2 (07:55→15:37)
[2023-09-25] MEDS: MULTIVITAMINS, THERA 1 EACH TAB PO SCH (07:59)
[2023-09-25] MEDS: METOPROLOL TARTRATE 25 MG TAB PO SCH (07:59)
[2023-09-25] MEDS: AMIODARONE 200 MG TAB PO SCH ×2 (07:59→19:33)
[2023-09-25] MEDS: sulfaSALAzine 500 MG TAB PO SCH ×2 (08:01→19:34)
[2023-09-25] MEDS: APALUTAMIDE 60 MG PO SCH (08:13)
[2023-09-25] MEDS ORDERED: DEXTROSE 5% IN WATER 100 ML with AMIODARONE 150 MG IV ONE ×2 (08:30→12:30)
[2023-09-25] MEDS: LOSARTAN 25 MG TAB PO SCH (10:03)
--- NOTE | 2023-09-25 11:04 | P.PN ---
Subjective Progress Note Date: 09/25/23 Principal diagnosis: Atrial fibrillation/RVR. I am seeing this patient in consultation today 09/24/2023, as the patient is currently postop day #1 following a right-sided VATS with right upper lobectomy and mediastinal lymph node dissection. Patient is a 68-year-old white male with past medical history significant for hypertension, hyperlipidemia, prostate cancer status/post prostatectomy, COPD, and right upper lobe non-small cell lung cancer diagnosed back on August 01 with robotic bronchoscopy and EBUS. Patient did have a follow-up mediastinoscopy last month to evaluate nondiagnostic lymph nodes. Patient was brought back to the hospital yesterday September 23, and underwent a right robotic-assisted thorascopic surgery with right upper lobectomy and mediastinal lymph node dissection. No immediate perioperative complications were reported. Patient is currently being monitored on the cardiac stepdown unit. He is sitting up in bed, on 2 L/m nasal cannula, in no acute distress. Right-sided chest tube is hooked to suction at -20 cm H2O. An intermittent air leak remains. There is a total of 250 ml serosanguineous output. Chest x-ray following the procedure shows a right thoracotomy tube in place with a small right-sided pneumothorax. No postoperative labs available. He is relatively comfortable, complaining of a mild amount of right lateral chest pain at the chest tube insertion site. He has a combination of tramadol and Tylenol ordered for pain management. Vitals are stable. Progress note dated 09/24/2023. 68-year-old male is postop day #2, status post robotically-assisted right upper lobectomy, for lung cancer. The patient was transferred down to the intensive care unit yesterday, for atrial fibrillation with RVR. Currently, he's seen in room 250. He is on 3 L of oxygen by nasal cannula, and saline at 20 mL an hour, and an amiodarone drip at 0.5 mg/m. At the current time, he is in normal sinus rhythm. He does have a leak from his right-sided chest tube. White count 13.6, hemoglobin 11.1, hematocrit 32.7, and platelet count 303,000. Sodium 133, potassium 4, chlorides 99, CO2 28, anion gap normal, BUN 12, and the creatinine is 0.62. Chest x-ray shows a right chest tube, without clearcut pneumothorax. Objective - Vital Signs Vital signs: Vital Signs Temp 98.1 F 09/25/23 08:00 Pulse 76 09/25/23 10:00 Resp 25 H 09/25/23 10:00 BP 143/99 09/25/23 10:00 Pulse Ox 95 09/25/23 10:00 FiO2 Intake & Output 09/24/23 09/25/23 09/25/23 18:59 06:59 18:59 Intake Total 180 380 309.8 Output Total 355 525 Balance -175 -145 309.8 Weight 86.5 kg Intake: IV 380 160 Dextrose 5% in Water 100 100 ml @ 618 mls/hr IV .Q10M ONE with Amiodarone 150 mg Rx#:[id number] Dextrose 5% in Water 100 100 100 ml @ 618 mls/hr IV .Q10M ONE with Amiodarone 150 mg Rx#:[id number] Invasive Line 2 40 Invasive Line 3 40 Magnesium Sulfate-D5w Pmx 100 1 gm In Dextrose/Water 1 100ml.bag @ 100 mls/hr IVPB ONCE ONE Rx#: [id number] ns 60 Intake, IV Titration 49.8 Amount Amiodarone 450 mg In 49.8 Dextrose 5% in Water 250 ml @ 0.5 MG/MIN 16.667 mls/hr IV .Q15H PALAK Rx#: [id number] Oral 180 100 Output: Chest Tube Drainage 55 Right 55 Drainage 130 Right Chest 130 Urine 300 395 Other: Voiding Method External Catheter Bedside Commode Bedside Commode Urinal Urinal # Voids 0 # Bowel Movements 1 - Exam No acute distress, oriented 3. Currently on 3 L of oxygen. No respiratory distress. No use of accessory muscles. HEENT examination is grossly unremarkable. Mucous membranes are moist. No oral lesions. Neck supple. Full range of motion. No adenopathy thyromegaly or neck vein distention. Cardiovascular examination reveals regular rhythm rate. S1-S2 normal. No S3 or S4. No discernible murmur noted. Heart rate 76 bpm. Lungs reveal diminished breath sounds on the right. A few scattered rhonchi. Breath sounds on the left are clear. 3 L saturation is 95-96%. Abdomen soft bowel sounds are heard. No masses or tenderness. Extremities are intact. No cyanosis clubbing or edema. Skin is without rash or lesion. Neurologic examination is brief but nonfocal. - Labs CBC & Chem 7: 09/25/23 03:39 09/25/23 03:39 Labs: Abnormal Lab Results - Last 24 Hours (Table) 09/14/23 09/24/23 09/24/23 Range/Units 08:11 17:28 17:28 WBC 11.8 H (3.8-10.6) k/uL RBC 3.49 L (4.30-5.90) m/uL Hgb 11.1 L (13.0-17.5) gm/dL Hct 33.4 L (39.0-53.0) % Sodium 132 L (137-145) mmol/L Creatinine 0.65 L (0.66-1.25) mg/dL Glucose 130 H (74-99) mg/dL POC Glucose (mg/dL) (70-110) mg/dL Crossmatch See Detail 09/24/23 09/25/23 09/25/23 Range/Units 18:29 03:39 03:39 WBC 13.6 H (3.8-10.6) k/uL RBC 3.40 L (4.30-5.90) m/uL Hgb 11.1 L (13.0-17.5) gm/dL Hct 32.7 L (39.0-53.0) % Sodium 133 L (137-145) mmol/L Creatinine 0.62 L (0.66-1.25) mg/dL Glucose 108 H (74-99) mg/dL POC Glucose (mg/dL) 132 H (70-110) mg/dL Crossmatch Assessment and Plan Assessment: Right upper lobe non-small cell lung cancer S/P operative day #2, following a right-sided VATS with right upper lobectomy and mediastinal lymph node dissection. Patient had a previous robotic bronchoscopy and EBUS, as well as a previous mediastinoscopy. Set atrial fibrillation with RVR. Severe COPD, with an FEV1 46% of predicted. History of prostate cancer status post prostatectomy. History of hypertension. History of hyperlipidemia. Remote history of nicotine dependence. Plan: Plan dated 09/25/2023. The patient was transferred down to the intensive care unit yesterday, after a rapid response was called on this patient. The patient developed atrial fibrillation with RVR, and was transferred down to the intensive care unit, for further monitoring and management. The patient was placed on amiodarone drip, and is currently running at 0.5 mg/m. The patient is now in normal sinus rhythm. We'll continue to watch the patient make recommendations were appropriate. Labs, x-rays, and medications are all reviewed. Prognosis is guarded. Lung function is poor. Time with Patient: Greater than 30
[2023-09-25] MEDS ORDERED: METOPROLOL TARTRATE 25 MG TAB PO STA (12:13)
--- NOTE | 2023-09-25 12:32 | P.PN ---
Subjective patient transferred to the ICU yesterday due to A. fib. still able to void. He denies any gross hematuria or difficulty voiding. Objective - Vital Signs Vital signs: Vital Signs Temp 98.1 F 09/25/23 08:00 Pulse 76 09/25/23 11:00 Resp 23 09/25/23 11:00 BP 157/84 09/25/23 11:00 Pulse Ox 94 L 09/25/23 11:00 FiO2 Intake & Output 09/24/23 09/25/23 09/25/23 18:59 06:59 18:59 Intake Total 180 380 346.4 Output Total 355 525 Balance -175 -145 346.4 Weight 86.5 kg Intake: IV 380 180 Dextrose 5% in Water 100 100 ml @ 618 mls/hr IV .Q10M ONE with Amiodarone 150 mg Rx#:[id number] Dextrose 5% in Water 100 100 100 ml @ 618 mls/hr IV .Q10M ONE with Amiodarone 150 mg Rx#:[id number] Invasive Line 2 40 Invasive Line 3 40 Magnesium Sulfate-D5w Pmx 100 1 gm In Dextrose/Water 1 100ml.bag @ 100 mls/hr IVPB ONCE ONE Rx#: [id number] ns 80 Intake, IV Titration 66.4 Amount Amiodarone 450 mg In 66.4 Dextrose 5% in Water 250 ml @ 0.5 MG/MIN 16.667 mls/hr IV .Q15H PALAK Rx#: [id number] Oral 180 100 Output: Chest Tube Drainage 55 Right 55 Drainage 130 Right Chest 130 Urine 300 395 Other: Voiding Method External Catheter Bedside Commode Bedside Commode Urinal Urinal # Voids 0 # Bowel Movements 1 - Labs CBC & Chem 7: 09/25/23 03:39 09/25/23 03:39 Labs: Abnormal Lab Results - Last 24 Hours (Table) 09/14/23 09/24/23 09/24/23 Range/Units 08:11 17:28 17:28 WBC 11.8 H (3.8-10.6) k/uL RBC 3.49 L (4.30-5.90) m/uL Hgb 11.1 L (13.0-17.5) gm/dL Hct 33.4 L (39.0-53.0) % Sodium 132 L (137-145) mmol/L Creatinine 0.65 L (0.66-1.25) mg/dL Glucose 130 H (74-99) mg/dL POC Glucose (mg/dL) (70-110) mg/dL Crossmatch See Detail 09/24/23 09/25/23 09/25/23 Range/Units 18:29 03:39 03:39 WBC 13.6 H (3.8-10.6) k/uL RBC 3.40 L (4.30-5.90) m/uL Hgb 11.1 L (13.0-17.5) gm/dL Hct 32.7 L (39.0-53.0) % Sodium 133 L (137-145) mmol/L Creatinine 0.62 L (0.66-1.25) mg/dL Glucose 108 H (74-99) mg/dL POC Glucose (mg/dL) 132 H (70-110) mg/dL Crossmatch Assessment and Plan Assessment: 68-year-old male status post robotic radical prostatectomy in in April unable to place a Santa catheter prior to its his right lombectomy due to bladder neck contracture. He's been able to void without any difficulties post surgery -At this point from urology standpoint no further intervention given that he is able to void without difficulties. -Advised to follow up as an outpatient for his Lupron continued prostate cancer care
[2023-09-25] MEDS: traMADol 50 MG TAB PO PRN (17:10)
[2023-09-25] MEDS ORDERED: AMIODARONE 450 MG in DEXTROSE 5% IN WATER 250 ML IV SCH ×2 (18:15)
[2023-09-25] MEDS: ATORVASTATIN 10 MG TAB PO SCH (19:33)
[2023-09-25] MEDS: METOPROLOL TARTRATE 50 MG TAB PO SCH (19:33)
--- NOTE | 2023-09-25 21:25 | CONS ---
CONSULTATION REASON FOR CONSULTATION: Advice regarding atrial fibrillation and other medical issues, requested by Cardiothoracic Surgery. HISTORY OF PRESENT ILLNESS: This is a 68-year-old gentleman with a past medical history of multiple medical problems, being followed by Dr. Ramirez in the outpatient setting. The patient had a VATS with right upper lobectomy and mediastinal lymph node dissection for possible malignancy. The patient developed atrial fibrillation with rapid ventricular rate. The patient is in ICU at this time. The patient is currently on amiodarone. There is no history of any fever, rigor, or chills at this time. PAST MEDICAL HISTORY: Reviewed includes COPD, hypertension, hyperlipidemia, and prostate cancer. Rest of the history and rest of the chart are also reviewed. HOME MEDICATIONS: Reviewed include sulfasalazine. Doses and rest of the medications are reviewed. ALLERGIES: None. FAMILY HISTORY: History of cancer in family. SOCIAL HISTORY: Smoking, occasional alcohol intake, and THC. REVIEW OF SYSTEMS: Fourteen-point review is negative except as mentioned earlier. PHYSICAL EXAMINATION: VITAL SIGNS: Pulse is 76, blood pressure 143/89, respirations 25. HEENT: Conjunctivae are normal. NECK: No jugular venous distention. CARDIOVASCULAR: S1 and S2 muffled. RESPIRATORY: Breath sounds diminished at the bases. Few scattered rhonchi and crackles. ABDOMEN: Soft. LEGS: No edema. NERVOUS SYSTEM: No focal deficits. SKIN: No ulcers or rashes. JOINTS: No active deforming arthropathy. LABORATORY DATA: WBC 13.6. TSH is normal. ASSESSMENT: 1. Atrial fibrillation with fast ventricular rate. 2. Status post video-assisted thoracoscopic surgery and mediastinal lymph node biopsy for possible [id number] lung cancer. 3. Severe chronic obstructive pulmonary disease. 4. Prostate cancer history. 5. Mild hyponatremia. 6. Hypertension. 7. Hyperlipidemia. 8. Multiple complex medical issues. RECOMMENDATIONS AND DISCUSSION: In this 68-year-old gentleman presented with multiple complex medical issues, we will monitor the patient closely. The patient is on amiodarone drip. We will continue to monitor. Ensure oxygenation. Resume the home medications. We will follow the patient closely with you. Continue with beta-blockers, and Dr. Ramirez will follow tomorrow. MMODL / IJN: [id number] /
[2023-09-26 06:10] LABS: HCT 32.5 % (39.0-53.0); HGB 10.7 gm/dL (13.0-17.5); MCH 31.6 pg (25.0-35.0); MCHC 32.8 g/dL (31.0-37.0); MCV 96.1 fL (80.0-100.0); Mean Platelet Volume 7.2; Platelet Count 326 k/uL (150-450); RBC 3.38 m/uL (4.30-5.90); RDW 13.7 % (11.5-15.5); WBC 13.8 k/uL (3.8-10.6)
[2023-09-26] MEDS: ACETAMINOPHEN TAB 325 MG TAB PO PRN ×3 (06:25→20:30)
[2023-09-26] MEDS: PANTOPRAZOLE 40 MG TABLET PO SCH (06:26)
[2023-09-26 06:58] LABS: African American GFR (CKD) >90 (>60 ml/min/1.73 sqM); Anion Gap 9 mmol/L; Blood Urea Nitrogen 11 mg/dL (9-20); Calcium 8.6 mg/dL (8.4-10.2); Carbon Dioxide 27 mmol/L (22-30); Chloride 99 mmol/L (98-107); Glucose 97 mg/dL (74-99); Magnesium 1.9 mg/dL (1.6-2.3); Non-African American GFR(CKD) >90 (>60 ml/min/1.73 sqM); Potassium 4.1 mmol/L (3.5-5.1); Sodium 135 mmol/L (137-145)
--- NOTE | 2023-09-26 07:21 | XR ---
EXAMINATION TYPE: XR chest 1V portable DATE OF EXAM: 09/26/2023 HISTORY: Status post lobectomy COMPARISON: 09/25/2023 TECHNIQUE: Single view of the chest is submitted. FINDINGS: Demonstrated are scattered senescent parenchymal change. Right upper lobe chest tube remains in place. No evidence for sizable pneumothorax. Increased opacity right suprahilar region is stable. Right-sided volume loss with the hyperexpansion of the left lung. The heart is stable. Hilar and mediastinal structures are within normal limits. Degenerative changes are seen of the dorsal spine. IMPRESSION: 1. Stable postoperative chest
[2023-09-26] MEDS: ALBUTEROL NEBULIZED 2.5 MG/3 ML INHALATION PRN ×2 (07:42→19:48)
--- NOTE | 2023-09-26 08:04 | P.PN ---
Subjective Progress Note Date: 09/26/23 Principal diagnosis: Right upper lobe non small cell lung cancer. History of prostate cancer status post radical prostatectomy 04/2023 with subsequent urinary incontinence, hyperte nsion, hyperlipidemia, severe COPD, previous tobacco dependence, pneumothorax after mediastinoscopy in 07/2023 POD #2 bronchoscopy, robotic assisted thoracoscopic right upper lobectomy, intercostal nerve block at 2 levels, mediastinal lymph node dissection New onset afib with RVR, unexpected although not uncommon after surgical lobectomy, currently sinus rhythm The patient was seen and examined this morning sitting up in bed in no acute distress. Complains of some pain with deep breaths and coughing. Currently on 3 LPM NC with oxygen saturation in the low 90s. Right pleural chest tube present to water seal, no air leak present. CXR, labs reviewed. Currently sinus rhythm, hemodynamically stable. Able to void without difficulty. No other new concerns. Objective - Vital Signs Vital signs: Vital Signs Temp 97.9 F 09/26/23 04:00 Pulse 100 09/26/23 07:53 Resp 25 H 09/26/23 06:00 BP 143/92 09/26/23 06:00 Pulse Ox 94 L 09/26/23 07:48 FiO2 Intake & Output 09/25/23 09/26/23 09/26/23 18:59 06:59 18:59 Intake Total 1053.282 260 Output Total 600 820 Balance 453.282 -560 Weight 85.7 kg Intake: IV 320 260 Dextrose 5% in Water 100 100 ml @ 618 mls/hr IV .Q10M ONE with Amiodarone 150 mg Rx#:[id number] ns 220 260 Intake, IV Titration 393.282 Amount Amiodarone 450 mg In 293.282 Dextrose 5% in Water 250 ml @ 0.5 MG/MIN 16.667 mls/hr IV .Q15H PALAK Rx#: [id number] Dextrose 5% in Water 100 100 ml @ 618 mls/hr IV .Q10M ONE with Amiodarone 150 mg Rx#:[id number] Oral 340 Output: Chest Tube Drainage 0 Right 0 Urine 600 820 Other: Voiding Method Bedside Commode Bedside Commode Urinal Urinal # Voids 0 # Bowel Movements 2 - Exam CONSTITUTIONAL: Appears comfortable, cooperative, no acute distress RESPIRATORY: Lungs sounds diminished in the right base. Respirations even, nonlabored. Currently on 3 LPM NC with oxygen saturation 92%. Able to achieve 500 mL on incentive spirometry. Strong cough. CARDIOVASCULAR: S1, S2 present. Regular rate and rhythm, sinus rhythm on telemetry. Palpable peripheral pulses bilaterally. No edema present. No calf pain or tenderness noted. SCDs present. GASTROINTESTINAL: Abdomen soft, nontender, nondistended. Active bowel sounds present 4 quadrants. Tolerating diet. Positive bowel movement GENITOURINARY: Continues to void INTEGUMENTARY: Skin is warm and dry NEUROLOGIC: Cranial nerves II through XII intact MUSKULOSKELETAL: Able to move all extremities, strength equal bilaterally PSYCHIATRIC: Alert and oriented to person place and time, appropriate affect, intact judgment and insight INVASIVE LINES AND TUBES: Right pleural chest tube present to water seal, no air leak present, 50 mL serosanguineous drainage in the last 24 hours - Allied health notes Allied health notes reviewed: nursing - Labs CBC & Chem 7: 09/26/23 05:32 09/26/23 05:32 Labs: Abnormal Lab Results - Last 24 Hours (Table) 09/26/23 09/26/23 Range/Units 05:32 05:32 WBC 13.8 H (3.8-10.6) k/uL RBC 3.38 L (4.30-5.90) m/uL Hgb 10.7 L (13.0-17.5) gm/dL Hct 32.5 L (39.0-53.0) % Sodium 135 L (137-145) mmol/L Creatinine 0.59 L (0.66-1.25) mg/dL - Imaging and Cardiology Chest x-ray: report reviewed, image reviewed Assessment and Plan Assessment: Right upper lobe non small cell lung cancer, status post robotic assisted thoracoscopic right upper lobectomy, mediastinal lymph node dissection Pain, secondary to surgery, status post intercostal nerve block at 2 levels History of prostate cancer status post radical prostatectomy 04/2023 with subsequent urinary incontinence History of hypertension History of hyperlipidemia Severe COPD, FEV1 53% of predicted, DLCO 53% Previous tobacco dependence Pneumothorax after mediastinoscopy in 07/2023 New onset afib RVR, currently sinus Plan: Will discontinue chest tube Continue beta maryan, amiodarone Wean oxygen as tolerated, encourage incentive spirometry 10x every hour, bronchodilators per pulmonology Increase activity as tolerated, out of bed for all meals Pain control with current medication regimen Will monitor daily labs and CXR, final pathology pending GI/DVT prophylaxis Continue home medications Smoking cessation counseling and education offered, patient encouraged to continue to refrain from smoking Will place transfer orders for 3 [address], may transfer when bed available More recommendations to follow
[2023-09-26] MEDS: HEPARIN SODIUM,PORCINE 5,000 UNIT/ML 1 ML VIAL SQ SCH ×2 (08:49→16:07)
[2023-09-26] MEDS: AMIODARONE 200 MG TAB PO SCH ×2 (08:50→20:30)
[2023-09-26] MEDS: MULTIVITAMINS, THERA 1 EACH TAB PO SCH (08:50)
[2023-09-26] MEDS: MAGNESIUM SULFATE-D5W PMX 1 GM in DEXTROSE/WATER 1 100ML.BAG IVPB SCH ×2 (08:50→10:04)
[2023-09-26] MEDS: METOPROLOL TARTRATE 50 MG TAB PO SCH ×2 (08:50→20:31)
[2023-09-26] MEDS: LOSARTAN 25 MG TAB PO SCH (08:51)
[2023-09-26] MEDS: sulfaSALAzine 500 MG TAB PO SCH ×2 (08:51→20:31)
[2023-09-26] MEDS: APALUTAMIDE 60 MG PO SCH (09:14)
[2023-09-26] MEDS: KETOROLAC 15 MG/ML 1 ML VIAL IVP PRN ×2 (10:04→16:07)
--- NOTE | 2023-09-26 11:32 | P.PN ---
Subjective Progress Note Date: 09/26/23 Principal diagnosis: Atrial fibrillation/RVR. I am seeing this patient in consultation today 09/24/2023, as the patient is currently postop day #1 following a right-sided VATS with right upper lobectomy and mediastinal lymph node dissection. Patient is a 68-year-old white male with past medical history significant for hypertension, hyperlipidemia, prostate cancer status/post prostatectomy, COPD, and right upper lobe non-small cell lung cancer diagnosed back on August 01 with robotic bronchoscopy and EBUS. Patient did have a follow-up mediastinoscopy last month to evaluate nondiagnostic lymph nodes. Patient was brought back to the hospital yesterday September 23, and underwent a right robotic-assisted thorascopic surgery with right upper lobectomy and mediastinal lymph node dissection. No immediate perioperative complications were reported. Patient is currently being monitored on the cardiac stepdown unit. He is sitting up in bed, on 2 L/m nasal cannula, in no acute distress. Right-sided chest tube is hooked to suction at -20 cm H2O. An intermittent air leak remains. There is a total of 250 ml serosanguineous output. Chest x-ray following the procedure shows a right thoracotomy tube in place with a small right-sided pneumothorax. No postoperative labs available. He is relatively comfortable, complaining of a mild amount of right lateral chest pain at the chest tube insertion site. He has a combination of tramadol and Tylenol ordered for pain management. Vitals are stable. Progress note dated 09/24/2023. 68-year-old male is postop day #2, status post robotically-assisted right upper lobectomy, for lung cancer. The patient was transferred down to the intensive care unit yesterday, for atrial fibrillation with RVR. Currently, he's seen in room 250. He is on 3 L of oxygen by nasal cannula, and saline at 20 mL an hour, and an amiodarone drip at 0.5 mg/m. At the current time, he is in normal sinus rhythm. He does have a leak from his right-sided chest tube. White count 13.6, hemoglobin 11.1, hematocrit 32.7, and platelet count 303,000. Sodium 133, potassium 4, chlorides 99, CO2 28, anion gap normal, BUN 12, and the creatinine is 0.62. Chest x-ray shows a right chest tube, without clearcut pneumothorax. Progress note dated 09/26/2023. 68-year-old male, postop day #3, status post robotically-assisted right upper lobectomy for lung cancer. The patient is seen today in the intensive care unit, room 250. The patient was transferred down to the intensive care unit, after developing atrial fibrillation with RVR. Currently, the patient is seen in room 250. He is on 3 L of oxygen. No IV fluids. His chest tube has been removed by cardiothoracic surgery. White count 13.8, he will been 10.7, hematocrit 32.5, and platelet count is normal. Sodium 135, potassium 4.1, chloride 99, CO2 27, BUN 11, creatinine 0.59. Magnesium is 1.9. Calcium is 8.6. Chest x-ray from today, shows no pneumothorax, and the right chest tube was in place. Objective - Vital Signs Vital signs: Vital Signs Temp 97.7 F 09/26/23 08:00 Pulse 77 09/26/23 11:00 Resp 26 H 09/26/23 11:00 BP 136/69 09/26/23 10:00 Pulse Ox 93 L 09/26/23 11:00 FiO2 Intake & Output 09/25/23 09/26/23 09/26/23 18:59 06:59 18:59 Intake Total 1053.282 260 820 Output Total 600 820 100 Balance 453.282 -560 720 Weight 85.7 kg Intake: IV 320 260 220 Dextrose 5% in Water 100 100 ml @ 618 mls/hr IV .Q10M ONE with Amiodarone 150 mg Rx#:[id number] Magnesium Sulfate-D5w Pmx 200 1 gm In Dextrose/Water 1 100ml.bag @ 100 mls/hr IVPB Q1H PALAK Rx#: [id number] ns 220 260 20 Intake, IV Titration 393.282 Amount Amiodarone 450 mg In 293.282 Dextrose 5% in Water 250 ml @ 0.5 MG/MIN 16.667 mls/hr IV .Q15H PALAK Rx#: [id number] Dextrose 5% in Water 100 100 ml @ 618 mls/hr IV .Q10M ONE with Amiodarone 150 mg Rx#:[id number] Oral 340 600 Output: Chest Tube Drainage 0 Right 0 Urine 600 820 100 Other: Voiding Method Bedside Commode Bedside Commode Urinal Urinal Urinal # Voids 0 # Bowel Movements 2 1 - Exam No acute distress, oriented 3. Currently on 3 L of oxygen. No respiratory distress. No use of accessory muscles. HEENT examination is grossly unremarkable. Mucous membranes are moist. No oral lesions. Neck supple. Full range of motion. No adenopathy thyromegaly or neck vein d istention. Cardiovascular examination reveals regular rhythm rate. S1-S2 normal. No S3 or S4. No discernible murmur noted. Heart rate 77 bpm. Lungs reveal diminished breath sounds on the right. A few scattered rhonchi. Breath sounds on the left are clear. 3 L saturation is 93 %. Abdomen soft bowel sounds are heard. No masses or tenderness. Extremities are intact. No cyanosis clubbing or edema. Skin is without rash or lesion. Neurologic examination is brief but nonfocal. - Labs CBC & Chem 7: 09/26/23 05:32 09/26/23 05:32 Labs: Abnormal Lab Results - Last 24 Hours (Table) 09/26/23 09/26/23 Range/Units 05:32 05:32 WBC 13.8 H (3.8-10.6) k/uL RBC 3.38 L (4.30-5.90) m/uL Hgb 10.7 L (13.0-17.5) gm/dL Hct 32.5 L (39.0-53.0) % Sodium 135 L (137-145) mmol/L Creatinine 0.59 L (0.66-1.25) mg/dL Assessment and Plan Assessment: Right upper lobe non-small cell lung cancer S/P operative day #3, following a right-sided VATS with right upper lobectomy and mediastinal lymph node dissection. Patient had a previous robotic bronchoscopy and EBUS, as well as a previous mediastinoscopy. Acute atrial fibrillation with RVR, resolved. Severe COPD, with an FEV1 46% of predicted. History of prostate cancer status post prostatectomy. History of hypertension. History of hyperlipidemia. Remote history of nicotine dependence. Plan: Plan dated 09/25/2023. The patient was transferred down to the intensive care unit yesterday, after a rapid response was called on this patient. The patient developed atrial fibrillation with RVR, and was transferred down to the intensive care unit, for further monitoring and management. The patient was placed on amiodarone drip, and is currently running at 0.5 mg/m. The patient is now in normal sinus rhythm. We'll continue to watch the patient make recommendations were appropriate. Labs, x-rays, and medications are all reviewed. Prognosis is guarded. Lung function is poor. Plan dated 09/26/2023. The patient appears to be doing much better. He's currently on 3 L of oxygen. Back in sinus rhythm. Not receiving any IV fluids. There was no pneumothorax on chest x-ray. Labs, x-rays, and medications are reviewed. The right-sided chest tube will be removed today. Additional recommendations and suggestions are forthcoming. We will continue to follow the patient, and make recommendations along the way. Prognosis is guarded. Time with Patient: Less than 30
--- NOTE | 2023-09-26 15:22 | P.PN ---
Subjective Progress Note Date: 09/26/23 This is a 68-year-old gentleman with a right upper lobe non-small cell lung CA ,Status post robotic-assisted right upper lobectomy, intercostal nerve block, mediastinal lymph node dissection, developed A. fib with RVR postop. Telemetry sinus rhythm, amiodarone drip transitioned to oral. Right pleural chest tube to waterseal, with 50 MLS serosanguineous drainage over the last 24 hours. Chest x-ray reporting no evidence for sizable pneumothorax. Increased opacity right suprahilar region stable, right-sided volume loss with hyperexpansion of the left lung. Objective - Vital Signs Vital signs: Vital Signs Temp 97.5 F L 09/26/23 12:00 Pulse 77 09/26/23 11:00 Resp 18 09/26/23 12:00 BP 107/67 09/26/23 12:00 Pulse Ox 94 L 09/26/23 12:00 FiO2 Intake & Output 09/25/23 09/26/23 09/26/23 18:59 06:59 18:59 Intake Total 1053.282 260 820 Output Total 600 820 100 Balance 453.282 -560 720 Weight 85.7 kg Intake: IV 320 260 220 Dextrose 5% in Water 100 100 ml @ 618 mls/hr IV .Q10M ONE with Amiodarone 150 mg Rx#:[id number] Magnesium Sulfate-D5w Pmx 200 1 gm In Dextrose/Water 1 100ml.bag @ 100 mls/hr IVPB Q1H [facility] Rx#: [id number] ns 220 260 20 Intake, IV Titration 393.282 Amount Amiodarone 450 mg In 293.282 Dextrose 5% in Water 250 ml @ 0.5 MG/MIN 16.667 mls/hr IV .Q15H [facility] Rx#: [id number] Dextrose 5% in Water 100 100 ml @ 618 mls/hr IV .Q10M ONE with Amiodarone 150 mg Rx#:[id number] Oral 340 600 Output: Chest Tube Drainage 0 Right 0 Urine 600 820 100 Other: Voiding Method Bedside Commode Bedside Commode Urinal Urinal Urinal # Voids 0 # Bowel Movements 2 1 - Exam PHYSICAL EXAM: VITAL SIGNS: [As above] GENERAL: Sitting up in bed, no acute distress HEENT: Normocephalic, Conjunctivae normal. eyes normal. NECK: Supple, No JVD. No thyroid enlargement. No LNs CARDIOVASCULAR: S1, S2 regular.. No murmur RESPIRATION: Breath sounds diminished in the bases. No rhonchi or crackles. ABDOMEN: Soft, nontender . No guarding. no masses palpable. Bowel sounds heard. LEGS: No edema. no swelling PSYCHIATRY: Alert and oriented X3, mood and affect normal. NERVOUS SYSTEM: Cranial N 2-12 grossly normal. Moves all 4 limbs. No focal deficits. Strength and sensation grossly intact.. Skin: Warm and dry, no rash - Labs CBC & Chem 7: 09/26/23 05:32 09/26/23 05:32 Labs: Abnormal Lab Results - Last 24 Hours (Table) 09/26/23 09/26/23 Range/Units 05:32 05:32 WBC 13.8 H (3.8-10.6) k/uL RBC 3.38 L (4.30-5.90) m/uL Hgb 10.7 L (13.0-17.5) gm/dL Hct 32.5 L (39.0-53.0) % Sodium 135 L (137-145) mmol/L Creatinine 0.59 L (0.66-1.25) mg/dL Assessment and Plan Assessment: Right upper lobe non small cell lung cancer, status post robotic assisted thoracoscopic right upper lobectomy, mediastinal lymph node dissection New onset atrial fibrillation, currently sinus rhythm COPD, severe Hypertension Hyperlipidemia Nicotine dependence History of prostate cancer status post prostatectomy Plan: Continue on current medication regime ,monitoring and symptomatic treatment. CTS is planning on to DC chest tube today and transfer patient to [facility]. A pulmonary toileting with incentive spirometer reinforce. Pain management. Smoking cessation reinforced. The impression and plan of care has been dictated as directed. : I performed a history and examination of this patient, discussed the same with the dictator. I agree with the dictator's note ,documented as a scribe. Any additional findings or plans will be noted.
--- NOTE | 2023-09-26 15:47 | XR ---
EXAMINATION TYPE: XR chest 2V DATE OF EXAM: 09/26/2023 COMPARISON: 09/26/2023 HISTORY: Shortness of breath TECHNIQUE: Frontal and lateral views of the chest are obtained. FINDINGS: Scattered senescent parenchymal changes noted. Hyperinflation compatible with COPD. Chest tube removal with persistent right apical lucency which may reflect cavitary lesion or loculate d pneumothorax. No progression seen. Right perihilar increased opacity and blunting right costophreni c angle. Hyperinflation left lung. Heart size is stable. Mediastinal structures are stable and grossly unremarkable. No evidence for hilar prominence. Degenerative changes dorsal spine. IMPRESSION: 1. Chest tube removal with persistent right apical lucency which may reflect cavitary lesion or locul ated pneumothorax. No progression seen. Right perihilar increased opacity and blunting right costophr enic angle. Hyperinflation left lung.
[2023-09-26] MEDS: ATORVASTATIN 10 MG TAB PO SCH (20:31)
[2023-09-26 22:30] LABS: African American GFR (CKD) >90 (>60 ml/min/1.73 sqM); Anion Gap 10 mmol/L; Blood Urea Nitrogen 17 mg/dL (9-20); Calcium 8.6 mg/dL (8.4-10.2); Carbon Dioxide 27 mmol/L (22-30); Chloride 98 mmol/L (98-107); Glucose 127 mg/dL (74-99); Magnesium 2.4 mg/dL (1.6-2.3); Non-African American GFR(CKD) >90 (>60 ml/min/1.73 sqM); Potassium 3.7 mmol/L (3.5-5.1); Sodium 135 mmol/L (137-145)
[2023-09-27] MEDS ORDERED: POTASSIUM CHLORIDE ER 20 MEQ TAB.ER PO SCH
[2023-09-27] MEDS: HEPARIN SODIUM,PORCINE 5,000 UNIT/ML 1 ML VIAL SQ SCH ×4 (00:10→23:59)
[2023-09-27] MEDS ORDERED: AMIODARONE 200 MG TAB PO ONE (03:00)
[2023-09-27 04:45] LABS: HCT 30.7 % (39.0-53.0); HGB 10.1 gm/dL (13.0-17.5); MCH 31.4 pg (25.0-35.0); MCHC 32.8 g/dL (31.0-37.0); MCV 95.8 fL (80.0-100.0); Mean Platelet Volume 7.1; Platelet Count 380 k/uL (150-450); RBC 3.21 m/uL (4.30-5.90); RDW 13.9 % (11.5-15.5); WBC 9.9 k/uL (3.8-10.6)
[2023-09-27 04:55] LABS: African American GFR (CKD) >90 (>60 ml/min/1.73 sqM); Anion Gap 7 mmol/L; Blood Urea Nitrogen 17 mg/dL (9-20); Calcium 8.4 mg/dL (8.4-10.2); Carbon Dioxide 27 mmol/L (22-30); Chloride 100 mmol/L (98-107); Glucose 112 mg/dL (74-99); Non-African American GFR(CKD) >90 (>60 ml/min/1.73 sqM); Sodium 134 mmol/L (137-145)
[2023-09-27] MEDS ORDERED: DILTIAZEM 5 MG/ML 5 ML VIAL IVP STA (06:38)
[2023-09-27] MEDS ORDERED: METOPROLOL TARTRATE 5 MG/5 ML VIAL IVP STA (06:56)
[2023-09-27] MEDS: PANTOPRAZOLE 40 MG TABLET PO SCH ×2 (06:57→08:34)
[2023-09-27] MEDS ORDERED: SODIUM CHLORIDE 0.9% 1,000 ML IV SCH (07:00)
[2023-09-27] MEDS: ALBUTEROL NEBULIZED 2.5 MG/3 ML INHALATION PRN (08:18)
--- NOTE | 2023-09-27 08:22 | XR ---
EXAMINATION TYPE: XR chest 2V DATE OF EXAM: 09/27/2023 6:31 AM CLINICAL INDICATION:Male, 68 years old with history of post lobectomy; COMPARISON: 09/26/2023 TECHNIQUE: XR chest 2V Frontal and lateral views of the chest. FINDINGS: Lungs/Pleura: There is visceral pleural line within the right lung cirrhosis likely representing pneu mothorax with right lung there is no evidence of pleural effusion, focal consolidation, or pneumothor ax. Pulmonary vascularity: Unremarkable. Heart/mediastinum: Cardiomediastinal silhouette is unremarkable. Musculoskeletal: No acute osseous pathology. IMPRESSION: Postsurgical changes to the right lung with suspected small right pneumothorax. This can be confirmed with CT imaging.
[2023-09-27] MEDS: METOPROLOL TARTRATE 50 MG TAB PO SCH ×2 (08:34→21:05)
[2023-09-27] MEDS: AMIODARONE 200 MG TAB PO SCH ×2 (08:34→20:35)
[2023-09-27] MEDS: ACETAMINOPHEN TAB 325 MG TAB PO PRN ×2 (08:34→17:17)
[2023-09-27] MEDS: LEVOFLOXACIN 750MG-D5W PMX 750 MG in DEXTROSE/WATER 1 150ML.BAG IVPB SCH (08:36)
[2023-09-27] MEDS: KETOROLAC 15 MG/ML 1 ML VIAL IVP PRN ×2 (08:36→17:20)
[2023-09-27] MEDS: MULTIVITAMINS, THERA 1 EACH TAB PO SCH (08:40)
[2023-09-27] MEDS: APALUTAMIDE 60 MG PO SCH (08:40)
[2023-09-27] MEDS: sulfaSALAzine 500 MG TAB PO SCH ×2 (08:41→20:40)
[2023-09-27] MEDS ORDERED: MIDAZOLAM 2 MG/2 ML VIAL ONE (08:55)
[2023-09-27] MEDS ORDERED: PROPOFOL 10 MG/ML 20 ML VIAL IV ONE (08:55)
[2023-09-27] MEDS ORDERED: KETAMINE HCL IN 0.9 % NACL 50 MG/5 ML SYRINGE ONE (08:55)
[2023-09-27] MEDS ORDERED: LIDOCAINE 1% INJ 10MG/ML (20 ML MDV) ONE (08:55)
[2023-09-27] MEDS ORDERED: LIDOCAINE 2% INJ 20 MG/ML INTRATRACH ONE (09:00)
--- NOTE | 2023-09-27 09:06 | P.PN ---
Subjective Progress Note Date: 09/27/23 Principal diagnosis: Right upper lobe non small cell lung cancer. History of prostate cancer status post radical prostatectomy 04/2023 with subsequent urinary incontinence, hyperte nsion, hyperlipidemia, severe COPD, previous tobacco dependence, pneumothorax after mediastinoscopy in 07/2023 POD #3 bronchoscopy, robotic assisted thoracoscopic right upper lobectomy, intercostal nerve block at 2 levels, mediastinal lymph node dissection New onset afib with RVR, unexpected although not uncommon after surgical lobectomy, currently sinus rhythm The patient was seen and examined this morning sitting up in bed. Complains of some pain with deep breaths and coughing. Currently on 2 LPM NC with oxygen saturation in the mid 90s. Right pleural chest tube discontinued yesterday. Patient has been in and out of rapid atrial fibrillation despite amio and beta maryan. CXR, labs reviewed. Discussed with Dr. Whalen and Dr. Mercado, based on patient's CXR Dr. Mercado will perform bronchoscopy today. Currently sinus rhythm, hemodynamically stable. Able to void without difficulty. No other new concerns. Objective - Vital Signs Vital signs: Vital Signs Temp 98.2 F 09/27/23 08:00 Pulse 80 09/27/23 08:26 Resp 18 09/27/23 08:00 BP 107/63 09/27/23 08:00 Pulse Ox 98 09/27/23 08:20 FiO2 Intake & Output 09/26/23 09/27/23 09/27/23 18:59 06:59 18:59 Intake Total 820 Output Total 400 Balance 420 Weight 86 kg Intake: IV 220 Magnesium Sulfate-D5w Pmx 200 1 gm In Dextrose/Water 1 100ml.bag @ 100 mls/hr IVPB Q1H [facility] Rx#: [id number] ns 20 Oral 600 Output: Urine 400 Other: Voiding Method Bedside Commode Bedside Commode Urinal Urinal Incontinent # Voids 2 5 3 # Bowel Movements 0 2 - Exam CONSTITUTIONAL: Appears comfortable, cooperative, no acute distress RESPIRATORY: Lungs sounds diminished on the right. Respirations even, nonlabored. Currently on 2 LPM NC with oxygen saturation 95%. Able to achieve 500-750 mL on incentive spirometry. Strong cough. CARDIOVASCULAR: S1, S2 present. Regular rate and rhythm, sinus rhythm on telemetry, intermittent episodes of rapid atrial fibrillation. Palpable peripheral pulses bilaterally. No edema present. No calf pain or tenderness noted. SCDs present. GASTROINTESTINAL: Abdomen soft, nontender, nondistended. Active bowel sounds present 4 quadrants. Tolerating diet. Positive bowel movement GENITOURINARY: Continues to void INTEGUMENTARY: Skin is warm and dry NEUROLOGIC: Cranial nerves II through XII intact MUSKULOSKELETAL: Able to move all extremities, strength equal bilaterally PSYCHIATRIC: Alert and oriented to person place and time, appropriate affect, intact judgment and insight - Allied health notes Allied health notes reviewed: nursing - Labs CBC & Chem 7: 09/27/23 03:51 09/27/23 03:51 Labs: Abnormal Lab Results - Last 24 Hours (Table) 09/26/23 09/27/23 09/27/23 Range/Units 21:47 03:51 03:51 RBC 3.21 L (4.30-5.90) m/uL Hgb 10.1 L (13.0-17.5) gm/dL Hct 30.7 L (39.0-53.0) % Sodium 135 L 134 L (137-145) mmol/L Glucose 127 H 112 H (74-99) mg/dL Magnesium 2.4 H (1.6-2.3) mg/dL - Imaging and Cardiology Chest x-ray: report reviewed, image reviewed Assessment and Plan Assessment: Right upper lobe non small cell lung cancer, status post robotic assisted thoracoscopic right upper lobectomy, mediastinal lymph node dissection Pain, secondary to surgery, status post intercostal nerve block at 2 levels History of prostate cancer status post radical prostatectomy 04/2023 with subse quent urinary incontinence History of hypertension History of hyperlipidemia Severe COPD, FEV1 53% of predicted, DLCO 53% Previous tobacco dependence Pneumothorax after mediastinoscopy in 07/2023 New onset afib RVR, currently sinus Plan: NPO for bronchoscopy Continue beta maryan, amiodarone Wean oxygen as tolerated, encourage incentive spirometry 10x every hour, broncho dilators per pulmonology Increase activity as tolerated, out of bed for all meals Pain control with current medication regimen Will monitor daily labs and CXR, final pathology pending GI/DVT prophylaxis Continue home medications Smoking cessation counseling and education offered, patient encouraged to continue to refrain from smoking Keep patient in ICU for now If goes into rapid afib and becomes unstable will cardiovert Will need anticoagulation prior to discharge More recommendations to follow
--- NOTE | 2023-09-27 10:20 | PCN ---
PROCEDURE NOTE PROCEDURES PERFORMED: Bronchoscopy, airway examination, therapeutic lavage, BAL right middle lobe. PREOPERATIVE DIAGNOSIS: Mucus plugging, right lung with right lung collapse. POSTOPERATIVE DIAGNOSIS: Mucus plugging, right lung with right lung collapse. [employer] PROJECT MANAGER: Dr. Yen Mitchell. ANESTHESIA: Provided anesthesia at the bedside. DESCRIPTION OF PROCEDURE: The patient's procedure was done in room 250. There was informed consent and universal timeout. After the patient was adequately sedated and being fully monitored, the bronchoscope was inserted through the right nostril. It passed through the right nasopharynx into the oropharynx and then to the hypopharynx. The hypopharyngeal structures, including the anterior commissure, true cords, false cords, arytenoids, piriform sinuses right and left, vallecula, all appeared normal. The glottic opening was topicalized with lidocaine. The bronchoscope was pushed through the glottic opening into the trachea. The right and left mainstem were topicalized. The left upper lobe proper and its 2 segments, the lingula and its 2 segments, and the left lower lobe and its 4 segments were all found to be normal. On the right side, there were thick mucus plugs noted at the entrance to the right mainstem. They were suctioned with some difficulty. Saline was used to facilitate removal of mucus plugs. There was no right upper lobe from previous resection. The right middle lobe and the right lower lobe had thick mucus plugs. At the end, they were suctioned with some difficulty. We used saline after topicalization with lidocaine, to remove the plugs. Once all mucus plugs were removed, and the airways could be visualized, the anatomy appeared normal including the 2 segments in the right middle lobe with 5 segments in the right lower lobe. Next the bronchoscope was wedged into the right middle lobe. We did a formal BAL. 30 mL of fluid was recovered. The patient tolerated the procedure well. The bronchoscope was withdrawn. The patient tolerated procedure well and was stable throughout the procedure. Anesthesia was present throughout the procedure. MMODL / IJN: [id number] /
--- NOTE | 2023-09-27 10:24 | XR ---
EXAMINATION TYPE: XR chest 1V portable DATE OF EXAM: 09/27/2023 10:15 AM CLINICAL INDICATION:Male, 68 years old with history of post bronchoscopy; COMPARISON: Chest radiographs from 09/27/2023 same day TECHNIQUE: XR chest 1V portable Frontal view of the chest. FINDINGS: Lungs/Pleura: There is lucency in right lung apex which continues to be concerning for pneumothorax. There is no evidence of pleural effusion, focal consolidation, or left pneumothorax. Pulmonary vascularity: Unremarkable. Heart/mediastinum: Cardiomediastinal silhouette is unremarkable. Musculoskeletal: No acute osseous pathology. IMPRESSION: Decrease in right upper lung lucency. Findings remain suspicious for pneumothorax.
--- NOTE | 2023-09-27 11:55 | P.PN ---
Subjective Progress Note Date: 09/27/23 Principal diagnosis: Atrial fibrillation/RVR. I am seeing this patient in consultation today 09/24/2023, as the patient is currently postop day #1 following a right-sided VATS with right upper lobectomy and mediastinal lymph node dissection. Patient is a 68-year-old white male with past medical history significant for hypertension, hyperlipidemia, prostate cancer status/post prostatectomy, COPD, and right upper lobe non-small cell lung cancer diagnosed back on August 01 with robotic bronchoscopy and EBUS. Patient did have a follow-up mediastinoscopy last month to evaluate nondiagnostic lymph nodes. Patient was brought back to the hospital yesterday September 23, and underwent a right robotic-assisted thorascopic surgery with right upper lobectomy and mediastinal lymph node dissection. No immediate perioperative complications were reported. Patient is currently being monitored on the cardiac stepdown unit. He is sitting up in bed, on 2 L/m nasal cannula, in no acute distress. Right-sided chest tube is hooked to suction at -20 cm H2O. An intermittent air leak remains. There is a total of 250 ml serosanguineous output. Chest x-ray following the procedure shows a right thoracotomy tube in place with a small right-sided pneumothorax. No postoperative labs available. He is relatively comfortable, complaining of a mild amount of right lateral chest pain at the chest tube insertion site. He has a combination of tramadol and Tylenol ordered for pain management. Vitals are stable. Progress note dated 09/24/2023. 68-year-old male is postop day #2, status post robotically-assisted right upper lobectomy, for lung cancer. The patient was transferred down to the intensive care unit yesterday, for atrial fibrillation with RVR. Currently, he's seen in room 250. He is on 3 L of oxygen by nasal cannula, and saline at 20 mL an hour, and an amiodarone drip at 0.5 mg/m. At the current time, he is in normal sinus rhythm. He does have a leak from his right-sided chest tube. White count 13.6, hemoglobin 11.1, hematocrit 32.7, and platelet count 303,000. Sodium 133, potassium 4, chlorides 99, CO2 28, anion gap normal, BUN 12, and the creatinine is 0.62. Chest x-ray shows a right chest tube, without clearcut pneumothorax. Progress note dated 09/26/2023. 68-year-old male, postop day #3, status post robotically-assisted right upper lobectomy for lung cancer. The patient is seen today in the intensive care unit, room 250. The patient was transferred down to the intensive care unit, after developing atrial fibrillation with RVR. Currently, the patient is seen in room 250. He is on 3 L of oxygen. No IV fluids. His chest tube has been removed by cardiothoracic surgery. White count 13.8, he will been 10.7, hematocrit 32.5, and platelet count is normal. Sodium 135, potassium 4.1, chloride 99, CO2 27, BUN 11, creatinine 0.59. Magnesium is 1.9. Calcium is 8.6. Chest x-ray from today, shows no pneumothorax, and the right chest tube was in place. Progress note dated 09/27/2023. 68-year-old male, postop day #4, status post robotically-assisted right upper lobectomy for lung cancer. The patient's chest x-ray today, showed evidence of partial right lung collapse. Cardiothoracic surgery requested a bronchoscopy on this patient. It was done at the bedside, with anesthesia in attendance. The patient had that plugs, in the right middle lobe and right lower lobe. There were suctioned with some difficulty, with the aid of saline lavage. The patient tolerated the procedure well. Currently, the patient is on oxygen at 4 L. He is getting saline at 50 mL an hour. We did perform a BAL of the right middle lobe. White count 9.9, hemoglobin 10.1, hematocrit 30.7, with a normal platelet count. Sodium 134, potassium 4, chlorides 100, CO2 27, BUN 17, creatinine 0.71. Calcium is 8.4. Post bronchoscopy chest x-ray is improved. Objective - Vital Signs Vital signs: Vital Signs Temp 98.2 F 09/27/23 08:00 Pulse 80 09/27/23 08:26 Resp 18 09/27/23 08:00 BP 107/63 09/27/23 08:00 Pulse Ox 98 09/27/23 08:20 FiO2 Intake & Output 09/26/23 09/27/23 09/27/23 18:59 06:59 18:59 Intake Total 820 Output Total 400 Balance 420 Weight 86 kg Intake: IV 220 Magnesium Sulfate-D5w Pmx 200 1 gm In Dextrose/Water 1 100ml.bag @ 100 mls/hr IVPB Q1H [facility] Rx#: [id number] ns 20 Oral 600 Output: Urine 400 Other: Voiding Method Bedside Commode Bedside Commode Urinal Urinal Incontinent # Voids 2 5 3 # Bowel Movements 0 2 - Exam No acute distress, oriented 3. Currently on 4 L of oxygen. No respiratory distress. No use of accessory muscles. HEENT examination is grossly unremarkable. Mucous membranes are moist. No oral lesions. Neck supple. Full range of motion. No adenopathy thyromegaly or neck vein distention. Cardiovascular examination reveals regular rhythm rate. S1-S2 normal. No S3 or S4. No discernible murmur noted. Heart rate 80 bpm. Lungs reveal diminished breath sounds on the right. A few scattered rhonchi. Breath sounds on the left are clear. 4 L saturation is 98 %. Abdomen soft bowel sounds are heard. No masses or tenderness. Extremities are intact. No cyanosis clubbing or edema. Skin is without rash or lesion. Neurologic examination is brief but nonfocal. - Labs CBC & Chem 7: 09/27/23 03:51 09/27/23 03:51 Labs: Abnormal Lab Results - Last 24 Hours (Table) 09/26/23 09/27/23 09/27/23 Range/Units 21:47 03:51 03:51 RBC 3.21 L (4.30-5.90) m/uL Hgb 10.1 L (13.0-17.5) gm/dL Hct 30.7 L (39.0-53.0) % Sodium 135 L 134 L (137-145) mmol/L Glucose 127 H 112 H (74-99) mg/dL Magnesium 2.4 H (1.6-2.3) mg/dL Assessment and Plan Assessment: Right upper lobe non-small cell lung cancer S/P operative day #4, following a right-sided VATS with right upper lobectomy and mediastinal lymph node dissection. Patient had a previous robotic bronchoscopy and EBUS, as well as a previous mediastinoscopy. S/P bronchoscopy, and BAL, right middle lobe, for large mucous plugs, and right lung collapse, 09/27/2023. Acute atrial fibrillation with RVR, resolved. Severe COPD, with an FEV1 46% of predicted. History of prostate cancer status post prostatectomy. History of hypertension. History of hyperlipidemia. Remote history of nicotine dependence. Plan: Plan dated 09/25/2023. The patient was transferred down to the intensive care unit yesterday, after a rapid response was called on this patient. The patient developed atrial fibrillation with RVR, and was transferred down to the intensive care unit, for further monitoring and management. The patient was placed on amiodarone drip, and is currently running at 0.5 mg/m. The patient is now in normal sinus rhythm. We'll continue to watch the patient make recommendations were appropriate. Labs, x-rays, and medications are all reviewed. Prognosis is guarded. Lung function is poor. Plan dated 09/26/2023. The patient appears to be doing much better. He's currently on 3 L of oxygen. Back in sinus rhythm. Not receiving any IV fluids. There was no pneumothorax on chest x-ray. Labs, x-rays, and medications are reviewed. The right-sided chest tube will be removed today. Additional recommendations and suggestions are forthcoming. We will continue to follow the patient, and make recommendations along the way. Prognosis is guarded. Plan dated 09/27/2023. The patient's chest x-ray today showed near complete collapse of the right lung. The patient underwent bronchoscopy, at the bedside, room 250, anesthesia in attendance, Dr. Calles. The patient tolerated the procedure well. The patient had large mucous plugs, in the right middle lobe and right lower lobe. There were suctioned. We did a formal BAL of the right middle lobe. The patient tolerated the procedure well. Samples were sent to laboratory for analysis. A repeat chest x-ray shows partial improvement of the right lung collapse. Labs, x-rays, medications are reviewed. We will continue to follow make recommendations along the way. Prognosis is guarded. Time with Patient: Less than 30
[2023-09-27] MEDS: LOSARTAN 25 MG TAB PO SCH (12:46)
--- NOTE | 2023-09-27 14:04 | P.PN ---
Subjective Progress Note Date: 09/27/23 This is a 68-year-old gentleman with a right upper lobe non-small cell lung CA ,Status post robotic-assisted right upper lobectomy, intercostal nerve block, mediastinal lymph node dissection, developed A. fib with RVR postop. Telemetry sinus rhythm, amiodarone drip transitioned to oral. Right pleural chest tube to waterseal, with 50 MLS serosanguineous drainage over the last 24 hours. Chest x-ray reporting no evidence for sizable pneumothorax. Increased opacity right suprahilar region stable, right-sided volume loss with hyperexpansion of the left lung. 09/27/2023 recurrent episodes of A. fib with RVR during the night, received amiodarone, IV push Lopressor, cardiezem, converted to sinus rhythm this morning. Feels weaker this morning with shortness of breath. Chest x-ray reports decreasing right upper lobe lucency, suspicious for pneumothorax/partial right lung collapse. Maintaining O2 sats in the 90s on 4 L nasal cannula. Evaluated by pulmonary and patient is scheduled for bronchoscopy. Afebrile, normal WBC. Hemoglobin 10.1, platelets 380, sodium 134, renal function stable. Blood sugars controlled. Objective - Vital Signs Vital signs: Vital Signs Temp 98.1 F 09/27/23 12:00 Pulse 80 09/27/23 08:26 Resp 18 09/27/23 12:00 BP 116/64 09/27/23 12:00 Pulse Ox 92 L 09/27/23 12:00 FiO2 Intake & Output 09/26/23 09/27/23 09/27/23 18:59 06:59 18:59 Intake Total 820 Output Total 400 Balance 420 Weight 86 kg Intake: IV 220 Magnesium Sulfate-D5w Pmx 200 1 gm In Dextrose/Water 1 100ml.bag @ 100 mls/hr IVPB Q1H [facility] Rx#: [id number] ns 20 Oral 600 Output: Urine 400 Other: Voiding Method Bedside Commode Bedside Commode Bedside Commode Urinal Urinal Urinal Incontinent Incontinent # Voids 2 5 3 # Bowel Movements 0 2 - Exam PHYSICAL EXAM: VITAL SIGNS: [As above] GENERAL: Alert and oriented 3 ,Sitting up in bed, fatigued, pale duskiness, short of breath HEENT: Normocephalic, Conjunctivae normal. eyes normal. NECK: Supple, No JVD. No thyroid enlargement. No LNs CARDIOVASCULAR: S1, S2 regular.. No murmur RESPIRATION: Breath sounds diminished in the bases. Scattered rhonchi. ABDOMEN: Soft, nondistended, nontender . No guarding.+BS LEGS: No edema. no swelling NERVOUS SYSTEM: Cranial N 2-12 grossly normal. No focal deficits. Strength and sensation grossly intact.. Skin: Warm and dry, no rash - Labs CBC & Chem 7: 09/27/23 03:51 09/27/23 03:51 Labs: Abnormal Lab Results - Last 24 Hours (Table) 09/26/23 09/27/23 09/27/23 Range/Units 21:47 03:51 03:51 RBC 3.21 L (4.30-5.90) m/uL Hgb 10.1 L (13.0-17.5) gm/dL Hct 30.7 L (39.0-53.0) % Sodium 135 L 134 L (137-145) mmol/L Glucose 127 H 112 H (74-99) mg/dL Magnesium 2.4 H (1.6-2.3) mg/dL Assessment and Plan Assessment: Right upper lobe non small cell lung cancer, status post robotic assisted thoracoscopic right upper lobectomy, mediastinal lymph node dissection Right lung collapse, bronchoscopy pending New onset atrial fibrillation, currently sinus rhythm COPD, severe Hypertension Hyperlipidemia Nicotine dependence History of prostate cancer status post prostatectomy Plan: Continue on current medication regime ,monitoring and symptomatic treatment. ICU management as per irrigation supervisor. Antiarrhythmics.Bronchoscopy pending. Aggressive pulmonary toileting with incentive spirometer reinforced. Pain management. The impression and plan of care has been dictated as directed. : I performed a history and examination of this patient, discussed the same with the dictator. I agree with the dictator's note ,documented as a scribe. Any additional findings or plans will be noted.
[2023-09-27] MEDS: ATORVASTATIN 10 MG TAB PO SCH (20:37)
[2023-09-28 05:56] LABS: HCT 30.8 % (39.0-53.0); HGB 9.9 gm/dL (13.0-17.5); MCH 31.4 pg (25.0-35.0); MCHC 32.3 g/dL (31.0-37.0); MCV 97.1 fL (80.0-100.0); Mean Platelet Volume 7.1; Platelet Count 369 k/uL (150-450); RBC 3.17 m/uL (4.30-5.90); RDW 13.7 % (11.5-15.5); WBC 9.8 k/uL (3.8-10.6)
[2023-09-28 06:13] LABS: African American GFR (CKD) >90 (>60 ml/min/1.73 sqM); Anion Gap 7 mmol/L; Blood Urea Nitrogen 14 mg/dL (9-20); Calcium 8.5 mg/dL (8.4-10.2); Carbon Dioxide 28 mmol/L (22-30); Chloride 102 mmol/L (98-107); Glucose 97 mg/dL (74-99); Non-African American GFR(CKD) >90 (>60 ml/min/1.73 sqM); Sodium 137 mmol/L (137-145)
[2023-09-28 07:45] LABS: Appearance,BF Slightly Cloudy (Clear); RBC, Body Fluid 134 /UL (0-2000)
[2023-09-28] MEDS: ALBUTEROL NEBULIZED 2.5 MG/3 ML INHALATION PRN ×2 (07:51→11:40)
--- NOTE | 2023-09-28 08:21 | P.PN ---
Subjective Progress Note Date: 09/28/23 Principal diagnosis: Right upper lobe non small cell lung cancer. History of prostate cancer status post radical prostatectomy 04/2023 with subsequent urinary incontinence, hyperte nsion, hyperlipidemia, severe COPD, previous tobacco dependence, pneumothorax after mediastinoscopy in 07/2023 POD #4 bronchoscopy, robotic assisted thoracoscopic right upper lobectomy, intercostal nerve block at 2 levels, mediastinal lymph node dissection New onset afib with RVR, unexpected although not uncommon after surgical lobectomy, currently sinus rhythm Mucus plugging, right long with right lung collapse, status post bronchoscopy, airway examination, therapeutic lavage, BAL right middle lobe by Dr. Mercado and Dr. Mitchell The patient was seen and examined this morning sitting up in bed in no acute distress eating breakfast. Complains of some pain with deep breaths and coughing. Currently on 3 LPM NC with oxygen saturation in the mid 90s. States he feels better today, improvement in breathing after bronchoscopy yesterday. No episodes of rapid atrial fibrillation overnight. Currently sinus rhythm, hemodynamically stable. Able to void without difficulty. CXR, labs reviewed. No other new concerns. Objective - Vital Signs Vital signs: Vital Signs Temp 98.2 F 09/28/23 04:00 Pulse 104 H 09/28/23 08:02 Resp 18 09/28/23 04:00 BP 144/72 09/28/23 04:00 Pulse Ox 96 09/28/23 07:53 FiO2 Intake & Output 09/27/23 09/28/23 09/28/23 18:59 06:59 18:59 Intake Total 610 Output Total 300 0 Balance 310 0 Intake: IV 10 Invasive Line 2 10 Oral 600 Output: Urine 300 0 Other: Voiding Method Bedside Commode Bedside Commode Urinal Urinal Incontinent Diaper Incontinent # Voids 2 1 0 # Bowel Movements 1 1 - Exam CONSTITUTIONAL: Appears comfortable, cooperative, no acute distress RESPIRATORY: Lungs sounds diminished on the right but much better than yesterday. Respirations even, nonlabored. Currently on 3 LPM NC with oxygen saturation 94%. Able to achieve 1000 mL on incentive spirometry. Strong cough. CARDIOVASCULAR: S1, S2 present. Regular rate and rhythm, sinus rhythm on telemetry. Palpable peripheral pulses bilaterally. No edema present. No calf pain or tenderness noted. SCDs present. GASTROINTESTINAL: Abdomen soft, nontender, nondistended. Active bowel sounds present 4 quadrants. Tolerating diet. Positive bowel movement GENITOURINARY: Continues to void INTEGUMENTARY: Skin is warm and dry NEUROLOGIC: Cranial nerves II through XII intact MUSKULOSKELETAL: Able to move all extremities, strength equal bilaterally PSYCHIATRIC: Alert and oriented to person place and time, appropriate affect, intact judgment and insight - Allied health notes Allied health notes reviewed: nursing - Labs CBC & Chem 7: 09/28/23 05:06 09/28/23 05:06 Labs: Abnormal Lab Results - Last 24 Hours (Table) 09/27/23 09/28/23 09/28/23 Range/Units 09:10 05:06 05:06 RBC 3.17 L (4.30-5.90) m/uL Hgb 9.9 L (13.0-17.5) gm/dL Hct 30.8 L (39.0-53.0) % Creatinine 0.55 L (0.66-1.25) mg/dL Fluid Appearance Slightly Cloudy A (Clear) - Imaging and Cardiology Chest x-ray: image reviewed Assessment and Plan Assessment: Right upper lobe non small cell lung cancer, status post robotic assisted thoracoscopic right upper lobectomy, mediastinal lymph node dissection Pain, secondary to surgery, status post intercostal nerve block at 2 levels History of prostate cancer status post radical prostatectomy 04/2023 with s ubsequent urinary incontinence History of hypertension History of hyperlipidemia Severe COPD, FEV1 53% of predicted, DLCO 53% Previous tobacco dependence Pneumothorax after mediastinoscopy in 07/2023 New onset afib RVR, currently sinus Mucus plugging, right long with right lung collapse, status post bronchoscopy, airway examination, therapeutic lavage, BAL right middle lobe by Dr. Mercado and Dr. Mitchell Plan: Continue beta maryan, amiodarone Wean oxygen as tolerated, encourage incentive spirometry 10x every hour, bronchodilators per pulmonology Increase activity as tolerated, out of bed for all meals Pain control with current medication regimen Will monitor daily labs and CXR, final pathology pending GI/DVT prophylaxis Continue home medications Smoking cessation counseling and education offered, patient encouraged to continue to refrain from smoking Will place transfer orders for 3 cells cardiac stepdown unit, May transfer when bed available Will try to wean off oxygen, if able patient likely may be discharged to home tomorrow. If unable will discharge to home on Saturday when case management/social work can set up home oxygen More recommendations to follow
[2023-09-28] MEDS: METOPROLOL TARTRATE 50 MG TAB PO SCH ×2 (08:24→20:12)
[2023-09-28] MEDS: MULTIVITAMINS, THERA 1 EACH TAB PO SCH (08:24)
[2023-09-28] MEDS: AMIODARONE 200 MG TAB PO SCH ×2 (08:24→20:12)
[2023-09-28] MEDS: LEVOFLOXACIN 750MG-D5W PMX 750 MG in DEXTROSE/WATER 1 150ML.BAG IVPB SCH (08:24)
[2023-09-28] MEDS: LOSARTAN 25 MG TAB PO SCH (08:24)
[2023-09-28] MEDS: HEPARIN SODIUM,PORCINE 5,000 UNIT/ML 1 ML VIAL SQ SCH ×3 (08:25→22:58)
[2023-09-28] MEDS: APALUTAMIDE 60 MG PO SCH (08:26)
[2023-09-28] MEDS: sulfaSALAzine 500 MG TAB PO SCH ×2 (08:27→20:12)
--- NOTE | 2023-09-28 09:33 | XR ---
EXAMINATION TYPE: XR chest 1V portable DATE OF EXAM: 09/28/2023 COMPARISON: 09/27/2023 INDICATION: Post lobectomy TECHNIQUE: Single frontal view of the chest is obtained. FINDINGS: The heart size is normal. The pulmonary vasculature is normal. Right mediastinal border is stable in appearance. Right apical opacification is present. Small right pleural effusion may remain present. There may be some improvement of aeration from the comparison. IMPRESSION: 1. Improving post lobectomy right lung changes.
--- NOTE | 2023-09-28 10:21 | P.PN ---
Subjective Progress Note Date: 09/28/23 Principal diagnosis: Atrial fibrillation/RVR. I am seeing this patient in consultation today 09/24/2023, as the patient is currently postop day #1 following a right-sided VATS with right upper lobectomy and mediastinal lymph node dissection. Patient is a 68-year-old white male with past medical history significant for hypertension, hyperlipidemia, prostate cancer status/post prostatectomy, COPD, and right upper lobe non-small cell lung cancer diagnosed back on August 01 with robotic bronchoscopy and EBUS. Patient did have a follow-up mediastinoscopy last month to evaluate nondiagnostic lymph nodes. Patient was brought back to the hospital yesterday September 23, and underwent a right robotic-assisted thorascopic surgery with right upper lobectomy and mediastinal lymph node dissection. No immediate perioperative complications were reported. Patient is currently being monitored on the cardiac stepdown unit. He is sitting up in bed, on 2 L/m nasal cannula, in no acute distress. Right-sided chest tube is hooked to suction at -20 cm H2O. An intermittent air leak remains. There is a total of 250 ml serosanguineous output. Chest x-ray following the procedure shows a right thoracotomy tube in place with a small right-sided pneumothorax. No postoperative labs available. He is relatively comfortable, complaining of a mild amount of right lateral chest pain at the chest tube insertion site. He has a combination of tramadol and Tylenol ordered for pain management. Vitals are stable. Progress note dated 09/24/2023. 68-year-old male is postop day #2, status post robotically-assisted right upper lobectomy, for lung cancer. The patient was transferred down to the intensive care unit yesterday, for atrial fibrillation with RVR. Currently, he's seen in room 250. He is on 3 L of oxygen by nasal cannula, and saline at 20 mL an hour, and an amiodarone drip at 0.5 mg/m. At the current time, he is in normal sinus rhythm. He does have a leak from his right-sided chest tube. White count 13.6, hemoglobin 11.1, hematocrit 32.7, and platelet count 303,000. Sodium 133, potassium 4, chlorides 99, CO2 28, anion gap normal, BUN 12, and the creatinine is 0.62. Chest x-ray shows a right chest tube, without clearcut pneumothorax. Progress note dated 09/26/2023. 68-year-old male, postop day #3, status post robotically-assisted right upper lobectomy for lung cancer. The patient is seen today in the intensive care unit, room 250. The patient was transferred down to the intensive care unit, after developing atrial fibrillation with RVR. Currently, the patient is seen in room 250. He is on 3 L of oxygen. No IV fluids. His chest tube has been removed by cardiothoracic surgery. White count 13.8, he will been 10.7, hematocrit 32.5, and platelet count is normal. Sodium 135, potassium 4.1, chloride 99, CO2 27, BUN 11, creatinine 0.59. Magnesium is 1.9. Calcium is 8.6. Chest x-ray from today, shows no pneumothorax, and the right chest tube was in place. Progress note dated 09/27/2023. 68-year-old male, postop day #4, status post robotically-assisted right upper lobectomy for lung cancer. The patient's chest x-ray today, showed evidence of partial right lung collapse. Cardiothoracic surgery requested a bronchoscopy on this patient. It was done at the bedside, with anesthesia in attendance. The patient had that plugs, in the right middle lobe and right lower lobe. There were suctioned with some difficulty, with the aid of saline lavage. The patient tolerated the procedure well. Currently, the patient is on oxygen at 4 L. He is getting saline at 50 mL an hour. We did perform a BAL of the right middle lobe. White count 9.9, hemoglobin 10.1, hematocrit 30.7, with a normal platelet count. Sodium 134, potassium 4, chlorides 100, CO2 27, BUN 17, creatinine 0.71. Calcium is 8.4. Post bronchoscopy chest x-ray is improved. Progress note dated 09/28/2023. 68-year-old male, postop day #5, status post robotically-assisted right upper lobectomy for lung cancer. Yesterday, because of right upper lobe collapse, the patient underwent bronchoscopy at the bedside. It was assisted by anesthesia. Currently, the patient's doing much better. He's on 3 L nasal cannula. His chest x-rays much improved. He's not receiving any IV fluids. The patient is on Levaquin. A formal BAL was completed. White count 9.8, hemoglobin 9.9, hematocrit 30.8, and platelet count 369,000. Sodium, potassium, chloride, CO2, anion gap, and BUN were all normal. Creatinine is 0.55. The fluid was slightly cloudy, and had 99% PMNs. Objective - Vital Signs Vital signs: Vital Signs Temp 98.7 F 09/28/23 08:00 Pulse 104 H 09/28/23 08:02 Resp 22 09/28/23 08:00 BP 153/80 09/28/23 08:00 Pulse Ox 94 L 09/28/23 08:00 FiO2 Intake & Output 09/27/23 09/28/23 09/28/23 18:59 06:59 18:59 Intake Total 610 270 Output Total 300 0 Balance 310 0 270 Intake: IV 10 150 Invasive Line 2 10 Levofloxacin 750Mg-D5w 150 Pmx 750 mg In Dextrose/ Water 1 150ml.bag @ 100 mls/hr IVPB Q24H [facility] Rx#: [id number] Oral 600 120 Output: Urine 300 0 Other: Voiding Method Bedside Commode Bedside Commode Urinal Urinal Incontinent Diaper Incontinent # Voids 2 1 1 # Bowel Movements 1 1 1 - Exam No acute distress, oriented 3. Currently on 3 L of oxygen. No respiratory distress. No use of accessory muscles. HEENT examination is grossly unremarkable. Mucous membranes are moist. No oral lesions. Neck supple. Full range of motion. No adenopathy thyromegaly or neck vein distention. Cardiovascular examination reveals regular rhythm rate. S1-S2 normal. No S3 or S4. No discernible murmur noted. Heart rate 92 bpm. Lungs reveal diminished breath sounds on the right. A few scattered rhonchi. Breath sounds on the left are clear. 3 L saturation is 96%. Abdomen soft bowel sounds are heard. No masses or tenderness. Extremities are intact. No cyanosis clubbing or edema. Skin is without rash or lesion. Neurologic examination is brief but nonfocal. - Labs CBC & Chem 7: 09/28/23 05:06 09/28/23 05:06 Labs: Abnormal Lab Results - Last 24 Hours (Table) 09/27/23 09/28/23 09/28/23 Range/Units 09:10 05:06 05:06 RBC 3.17 L (4.30-5.90) m/uL Hgb 9.9 L (13.0-17.5) gm/dL Hct 30.8 L (39.0-53.0) % Creatinine 0.55 L (0.66-1.25) mg/dL Fluid Appearance Slightly Cloudy A (Clear) Assessment and Plan Assessment: Right upper lobe non-small cell lung cancer S/P operative day #5, following a right-sided VATS with right upper lobectomy and mediastinal lymph node dissection. Patient had a previous robotic bronchoscopy and EBUS, as well as a previous mediastinoscopy. S/P bronchoscopy, and BAL, right middle lobe, for large mucous plugs, and right lung collapse, 09/27/2023. Acute atrial fibrillation with RVR, resolved. Severe COPD, with an FEV1 46% of predicted. History of prostate cancer status post prostatectomy. History of hypertension. History of hyperlipidemia. Remote history of nicotine dependence. Plan: Plan dated 09/25/2023. The patient was transferred down to the intensive care unit yesterday, after a rapid response was called on this patient. The patient developed atrial fibrillation with RVR, and was transferred down to the intensive care unit, for further monitoring and management. The patient was placed on amiodarone drip, and is currently running at 0.5 mg/m. The patient is now in normal sinus rhythm. We'll continue to watch the patient make recommendations were appropriate. Labs, x-rays, and medications are all reviewed. Prognosis is guarded. Lung function is poor. Plan dated 09/26/2023. The patient appears to be doing much better. He's currently on 3 L of oxygen. Back in sinus rhythm. Not receiving any IV fluids. There was no pneumothorax on chest x-ray. Labs, x-rays, and medications are reviewed. The right-sided chest tube will be removed today. Additional recommendations and suggestions are forthcoming. We will continue to follow the patient, and make recommendations along the way. Prognosis is guarded. Plan dated 09/27/2023. The patient's chest x-ray today showed near complete collapse of the right lung. The patient underwent bronchoscopy, at the bedside, room 250, anesthesia in attendance, Dr. Calles. The patient tolerated the procedure well. The patient had large mucous plugs, in the right middle lobe and right lower lobe. There were suctioned. We did a formal BAL of the right middle lobe. The patient tolerated the procedure well. Samples were sent to laboratory for analysis. A repeat chest x-ray shows partial improvement of the right lung collapse. Labs, x-rays, medications are reviewed. We will continue to follow make recommendations along the way. Prognosis is guarded. Plan dated 09/28/2023. The patient is doing much better. His chest x-rays much improved. His been weaned down from 4, to 3 L of oxygen. He is much more stable, and is seen today in room 250. He had a bronchoscopy at the bedside yesterday, assisted by anesthesia. Labs, x-rays, and medications are reviewed. He is not receiving any IV fluids. He remains on Levaquin. The fluid from the bronchoscopy, was cl oudy, and had 99% PMNs. Additional recommendations and suggestions are forthcoming. Prognosis is guarded. Time with Patient: Less than 30
--- NOTE | 2023-09-28 11:50 | P.PN ---
Subjective Progress Note Date: 09/28/23 68-year-old gentleman with a right upper lobe non-small cell lung CA ,Status post robotic-assisted right upper lobectomy, intercostal nerve block, mediastinal lymph node dissection, developed A. fib with RVR postop. Telemetry sinus rhythm, amiodarone drip transitioned to oral. Right pleural chest tube to waterseal, with 50 MLS serosanguineous drainage over the last 24 hours. Chest x-ray reporting no evidence for sizable pneumothorax. Increased opacity right suprahilar region stable, right-sided volume loss with hyperexpansion of the left lung. 09/27/2023 recurrent episodes of A. fib with RVR during the night, received amiodarone, IV push Lopressor, cardiezem, converted to sinus rhythm this mor renzo. Feels weaker this morning with shortness of breath. Chest x-ray reports decreasing right upper lobe lucency, suspicious for pneumothorax/partial right lung collapse. Maintaining O2 sats in the 90s on 4 L nasal cannula. Evaluated by pulmonary and patient is scheduled for bronchoscopy. Afebrile, normal WBC. Hemoglobin 10.1, platelets 380, sodium 134, renal function stable. Blood sugars controlled.. 09/28/2023: Dr Perry kitchen, patient seen and evaluated bedside, heart rate better controlled, patient on 3 L of oxygen, Still in ICU, postoperative day 5 status post right upper lobectomy. Continue IV antibiotic with Levaquin. Blood work reviewed PHYSICAL EXAMINATION: GENERAL: The patient is alert and oriented x3, ill appearance nasal cannula in place HEENT: Pupils are round and equally reacting to light. EOMI. CARDIOVASCULAR: S1 and S2 present. Tachycardia noted irregular rhythm PULMONARY: She is breath sounds right lower lobe, rhonchi audible, chest bandage ABDOMEN: Soft, nontender, nondistended, normoactive bowel sounds. No palpable organomegaly. MUSCULOSKELETAL: No joint swelling or deformity. NEUROLOGICAL: Gross neurological examination did not reveal any focal deficits. Objective - Vital Signs Vital signs: Vital Signs Temp 98.7 F 09/28/23 08:00 Pulse 74 09/28/23 11:42 Resp 22 09/28/23 08:00 BP 153/80 09/28/23 08:00 Pulse Ox 94 L 09/28/23 08:00 FiO2 Intake & Output 09/27/23 09/28/23 09/28/23 18:59 06:59 18:59 Intake Total 610 270 Output Total 300 0 Balance 310 0 270 Intake: IV 10 150 Invasive Line 2 10 Levofloxacin 750Mg-D5w 150 Pmx 750 mg In Dextrose/ Water 1 150ml.bag @ 100 mls/hr IVPB Q24H [facility] Rx#: [id number] Oral 600 120 Output: Urine 300 0 Other: Voiding Method Bedside Commode Bedside Commode Bedside Commode Urinal Urinal Urinal Incontinent Diaper Diaper Incontinent Incontinent # Voids 2 1 1 # Bowel Movements 1 1 1 - Labs CBC & Chem 7: 09/28/23 05:06 09/28/23 05:06 Labs: Abnormal Lab Results - Last 24 Hours (Table) 09/27/23 09/28/23 09/28/23 Range/Units 09:10 05:06 05:06 RBC 3.17 L (4.30-5.90) m/uL Hgb 9.9 L (13.0-17.5) gm/dL Hct 30.8 L (39.0-53.0) % Creatinine 0.55 L (0.66-1.25) mg/dL Fluid Appearance Slightly Cloudy A (Clear) Assessment and Plan Assessment: Assessment and plan Right upper lobe non-small cell lung cancer status post wax with right upper lobe lobectomy metastasis and lymph node dissection postoperative day 5 Right middle lobe mucus plugging, right lung collapse status post bronchoscopy bronchoalveolar low large History of ablation rapid monitor response Severe COPD History of prostate cancer status post prostatectomy Hypertension Hyperlipidemia Chronic nicotine use Patient seen by cardiology, pulmonary medicine, continue to wean down on oxygen as tolerated In regards to atrial fibrillation continue amiodarone, continue metoprolol, In regards to right lower lobe collapse/mucus plugging/pneumonia continue patient on Levaquin, continue breathing treatments In regards to COPD, continue patient on albuterol embolization every 6 hours when necessary Prognosis remains guarded monitored in ICU waiting for bed on 3 S. Time with Patient: Greater than 30
[2023-09-28] MEDS: traMADol 50 MG TAB PO PRN (17:09)
[2023-09-28] MEDS: ATORVASTATIN 10 MG TAB PO SCH (20:12)
[2023-09-28] MEDS: ACETAMINOPHEN TAB 325 MG TAB PO PRN (20:13)
[2023-09-29 04:40] LABS: HCT 29.9 % (39.0-53.0); HGB 9.6 gm/dL (13.0-17.5); MCH 30.9 pg (25.0-35.0); MCHC 32.2 g/dL (31.0-37.0); MCV 95.8 fL (80.0-100.0); Mean Platelet Volume 7.5; Platelet Count 395 k/uL (150-450); RBC 3.13 m/uL (4.30-5.90); RDW 13.9 % (11.5-15.5); WBC 8.6 k/uL (3.8-10.6)
[2023-09-29 04:54] LABS: African American GFR (CKD) >90 (>60 ml/min/1.73 sqM); Anion Gap 8 mmol/L; Blood Urea Nitrogen 11 mg/dL (9-20); Calcium 8.5 mg/dL (8.4-10.2); Carbon Dioxide 28 mmol/L (22-30); Chloride 100 mmol/L (98-107); Glucose 95 mg/dL (74-99); Magnesium 1.9 mg/dL (1.6-2.3); Non-African American GFR(CKD) >90 (>60 ml/min/1.73 sqM); Potassium 3.9 mmol/L (3.5-5.1); Sodium 136 mmol/L (137-145)
[2023-09-29] MEDS ORDERED: MAGNESIUM SULFATE-D5W PMX 1 GM in DEXTROSE/WATER 1 100ML.BAG IVPB ONE (06:00)
[2023-09-29] MEDS ORDERED: POTASSIUM CHLORIDE ER 20 MEQ TAB.ER PO SCH (06:00)
[2023-09-29] MEDS: PANTOPRAZOLE 40 MG TABLET PO SCH (07:13)
--- NOTE | 2023-09-29 07:47 | P.PN ---
Subjective Progress Note Date: 09/29/23 Principal diagnosis: Right upper lobe non small cell lung cancer. History of prostate cancer status post radical prostatectomy 04/2023 with subsequent urinary incontinence, hyperte nsion, hyperlipidemia, severe COPD, previous tobacco dependence, pneumothorax after mediastinoscopy in 07/2023 POD #5 bronchoscopy, robotic assisted thoracoscopic right upper lobectomy, intercostal nerve block at 2 levels, mediastinal lymph node dissection New onset afib with RVR, unexpected although not uncommon after surgical lobectomy, currently sinus rhythm Mucus plugging, right long with right lung collapse, status post bronchoscopy, airway examination, therapeutic lavage, BAL right middle lobe by Dr. Mercado and Dr. Mitchell The patient was seen and examined this morning sitting up in a recliner in no acute distress. Complains of some pain with deep breaths and coughing. Currently on 3 LPM NC with oxygen saturation in the mid 90s, nursing has been unable to wean patient off oxygen. States he feels a bit better each day. No episodes of atrial fibrillation for greater than 24 hours. Currently sinus rhythm, hemodynamically stable. Able to void without difficulty. CXR, labs reviewed. Patient ambulated in the hallway yesterday without difficulty. Transfer orders placed yesterday for cardiac step down unit, no bed availability. No other new concerns. Objective - Vital Signs Vital signs: Vital Signs Temp 98.7 F 09/29/23 04:00 Pulse 84 09/29/23 04:00 Resp 14 09/29/23 04:00 BP 151/75 09/29/23 04:00 Pulse Ox 96 09/29/23 04:00 FiO2 Intake & Output 09/28/23 09/29/23 09/29/23 18:59 06:59 18:59 Intake Total 630 400 Balance 630 400 Intake: IV 150 Levofloxacin 750Mg-D5w 150 Pmx 750 mg In Dextrose/ Water 1 150ml.bag @ 100 mls/hr IVPB Q24H [facility] Rx#: [id number] Oral 480 400 Other: Voiding Method Bedside Commode Bedside Commode Urinal Urinal Diaper Diaper Incontinent Incontinent # Voids 1 1 # Bowel Movements 1 1 - Exam CONSTITUTIONAL: Appears comfortable, cooperative, no acute distress RESPIRATORY: Lungs sounds diminished in the bases bilaterally. Respirations even, nonlabored. Currently on 3 LPM NC with oxygen saturation 96%. Able to achieve 750 mL on incentive spirometry. Strong cough. CARDIOVASCULAR: S1, S2 present. Regular rate and rhythm, sinus rhythm on telemetry. Palpable peripheral pulses bilaterally. No edema present. No calf pain or tenderness noted. SCDs present. GASTROINTESTINAL: Abdomen soft, nontender, nondistended. Active bowel sounds present 4 quadrants. Tolerating diet. Positive bowel movement GENITOURINARY: Continues to void INTEGUMENTARY: Skin is warm and dry NEUROLOGIC: Cranial nerves II through XII intact MUSKULOSKELETAL: Able to move all extremities, strength equal bilaterally PSYCHIATRIC: Alert and oriented to person place and time, appropriate affect, intact judgment and insight - Allied health notes Allied health notes reviewed: nursing - Labs CBC & Chem 7: 09/29/23 03:31 12 03:31 Labs: Abnormal Lab Results - Last 24 Hours (Table) 09/27/23 09/29/23 09/29/23 Range/Units 09:10 03:31 03:31 RBC 3.13 L (4.30-5.90) m/uL Hgb 9.6 L (13.0-17.5) gm/dL Hct 29.9 L (39.0-53.0) % Sodium 136 L (137-145) mmol/L Creatinine 0.53 L (0.66-1.25) mg/dL Fluid Appearance Slightly Cloudy A (Clear) Microbiology - Last 24 Hours (Table) 09/27/23 09:10 Acid Fast Bacilli Smear - Preliminary Bronchoalviolar Lavage - Right - Imaging and Cardiology Chest x-ray: image reviewed Assessment and Plan Assessment: Right upper lobe non small cell lung cancer, status post robotic assisted thoracoscopic right upper lobectomy, mediastinal lymph node dissection Pain, secondary to surgery, status post intercostal nerve block at 2 levels History of prostate cancer status post radical prostatectomy 04/2023 with subsequent urinary incontinence History of hypertension History of hyperlipidemia Severe COPD, FEV1 53% of predicted, DLCO 53% Previous tobacco dependence Pneumothorax after mediastinoscopy in 07/2023 New onset afib RVR, currently sinus Mucus plugging, right long with right lung collapse, status post bronchoscopy, airway examination, therapeutic lavage, BAL right middle lobe by Dr. Mercado and Dr. Mitchell Plan: Continue beta maryan, amiodarone Wean oxygen as tolerated, encourage incentive spirometry 10x every hour, bronchodilators per pulmonology Increase activity as tolerated, out of bed for all meals Pain control with current medication regimen Will monitor daily labs and CXR, final pathology pending GI/DVT prophylaxis Continue home medications Smoking cessation counseling and education offered, patient encouraged to continue to refrain from smoking Transfer orders placed for cardiac stepdown unit yesterday, may transfer when bed available So far unsuccessful with weaning off oxygen, likely discharge to home tomorrow when case management/social work can set up home oxygen Patient may shower daily More recommendations to follow
[2023-09-29] MEDS: ALBUTEROL NEBULIZED 2.5 MG/3 ML INHALATION PRN (07:51)
[2023-09-29] MEDS ORDERED: AMIODARONE 50 MG TAB ONE (08:00)
[2023-09-29] MEDS ORDERED: DEXTROSE 5% IN WATER 50 ML BAG ONE (08:00)
[2023-09-29] MEDS: METOPROLOL TARTRATE 50 MG TAB PO SCH ×2 (08:37→20:06)
[2023-09-29] MEDS: AMIODARONE 200 MG TAB PO SCH ×2 (08:37→20:06)
[2023-09-29] MEDS: MULTIVITAMINS, THERA 1 EACH TAB PO SCH (08:37)
[2023-09-29] MEDS: LEVOFLOXACIN 750 MG TAB PO SCH (08:37)
[2023-09-29] MEDS: APALUTAMIDE 60 MG PO SCH (08:38)
[2023-09-29] MEDS: LOSARTAN 25 MG TAB PO SCH (08:38)
[2023-09-29] MEDS: HEPARIN SODIUM,PORCINE 5,000 UNIT/ML 1 ML VIAL SQ SCH ×3 (08:38→23:49)
[2023-09-29] MEDS: sulfaSALAzine 500 MG TAB PO SCH ×2 (08:39→20:06)
--- NOTE | 2023-09-29 10:34 | P.PN ---
Subjective Progress Note Date: 09/29/23 Principal diagnosis: Atrial fibrillation/RVR. I am seeing this patient in consultation today 09/24/2023, as the patient is currently postop day #1 following a right-sided VATS with right upper lobectomy and mediastinal lymph node dissection. Patient is a 68-year-old white male with past medical history significant for hypertension, hyperlipidemia, prostate cancer status/post prostatectomy, COPD, and right upper lobe non-small cell lung cancer diagnosed back on August 01 with robotic bronchoscopy and EBUS. Patient did have a follow-up mediastinoscopy last month to evaluate nondiagnostic lymph nodes. Patient was brought back to the hospital yesterday September 23, and underwent a right robotic-assisted thorascopic surgery with right upper lobectomy and mediastinal lymph node dissection. No immediate perioperative complications were reported. Patient is currently being monitored on the cardiac stepdown unit. He is sitting up in bed, on 2 L/m nasal cannula, in no acute distress. Right-sided chest tube is hooked to suction at -20 cm H2O. An intermittent air leak remains. There is a total of 250 ml serosanguineous output. Chest x-ray following the procedure shows a right thoracotomy tube in place with a small right-sided pneumothorax. No postoperative labs available. He is relatively comfortable, complaining of a mild amount of right lateral chest pain at the chest tube insertion site. He has a combination of tramadol and Tylenol ordered for pain management. Vitals are stable. Progress note dated 09/24/2023. 68-year-old male is postop day #2, status post robotically-assisted right upper lobectomy, for lung cancer. The patient was transferred down to the intensive care unit yesterday, for atrial fibrillation with RVR. Currently, he's seen in room 250. He is on 3 L of oxygen by nasal cannula, and saline at 20 mL an hour, and an amiodarone drip at 0.5 mg/m. At the current time, he is in normal sinus rhythm. He does have a leak from his right-sided chest tube. White count 13.6, hemoglobin 11.1, hematocrit 32.7, and platelet count 303,000. Sodium 133, potassium 4, chlorides 99, CO2 28, anion gap normal, BUN 12, and the creatinine is 0.62. Chest x-ray shows a right chest tube, without clearcut pneumothorax. Progress note dated 09/26/2023. 68-year-old male, postop day #3, status post robotically-assisted right upper lobectomy for lung cancer. The patient is seen today in the intensive care unit, room 250. The patient was transferred down to the intensive care unit, after developing atrial fibrillation with RVR. Currently, the patient is seen in room 250. He is on 3 L of oxygen. No IV fluids. His chest tube has been removed by cardiothoracic surgery. White count 13.8, he will been 10.7, hematocrit 32.5, and platelet count is normal. Sodium 135, potassium 4.1, chloride 99, CO2 27, BUN 11, creatinine 0.59. Magnesium is 1.9. Calcium is 8.6. Chest x-ray from today, shows no pneumothorax, and the right chest tube was in place. Progress note dated 09/27/2023. 68-year-old male, postop day #4, status post robotically-assisted right upper lobectomy for lung cancer. The patient's chest x-ray today, showed evidence of partial right lung collapse. Cardiothoracic surgery requested a bronchoscopy on this patient. It was done at the bedside, with anesthesia in attendance. The patient had that plugs, in the right middle lobe and right lower lobe. There were suctioned with some difficulty, with the aid of saline lavage. The patient tolerated the procedure well. Currently, the patient is on oxygen at 4 L. He is getting saline at 50 mL an hour. We did perform a BAL of the right middle lobe. White count 9.9, hemoglobin 10.1, hematocrit 30.7, with a normal platelet count. Sodium 134, potassium 4, chlorides 100, CO2 27, BUN 17, creatinine 0.71. Calcium is 8.4. Post bronchoscopy chest x-ray is improved. Progress note dated 09/28/2023. 68-year-old male, postop day #5, status post robotically-assisted right upper lobectomy for lung cancer. Yesterday, because of right upper lobe collapse, the patient underwent bronchoscopy at the bedside. It was assisted by anesthesia. Currently, the patient's doing much better. He's on 3 L nasal cannula. His chest x-rays much improved. He's not receiving any IV fluids. The patient is on Levaquin. A formal BAL was completed. White count 9.8, hemoglobin 9.9, hematocrit 30.8, and platelet count 369,000. Sodium, potassium, chloride, CO2, anion gap, and BUN were all normal. Creatinine is 0.55. The fluid was slightly cloudy, and had 99% PMNs. Progress note dated 09/29/2023. 68-year-old male postop day #6, status post robotically-assisted right upper lobectomy for lung cancer. The patient's doing very well. He is seen today in room 250, intensive care unit. His been weaned down to 1 L of oxygen. He's not receiving any IV fluids. He is receiving Levaquin. Labs today include a white count 8.6, hemoglobin 9.6, hematocrit 29.9, and a normal platelet count. Sodium 136, potassium 3.9, chlorides 100, CO2 28, BUN 11, creatinine 0.53. BAL from a few days ago, is currently pending or negative. Chest x-ray continues to show improvement. Objective - Vital Signs Vital signs: Vital Signs Temp 97.8 F 09/29/23 08:00 Pulse 108 H 09/29/23 08:06 Resp 15 09/29/23 08:00 BP 140/67 09/29/23 08:00 Pulse Ox 91 L 09/29/23 08:00 FiO2 Intake & Output 09/28/23 09/29/23 09/29/23 18:59 06:59 18:59 Intake Total 630 400 Balance 630 400 Intake: IV 150 Levofloxacin 750Mg-D5w 150 Pmx 750 mg In Dextrose/ Water 1 150ml.bag @ 100 mls/hr IVPB Q24H [facility] Rx#: [id number] Oral 480 400 Other: Voiding Method Bedside Commode Bedside Commode Urinal Urinal Diaper Diaper Incontinent Incontinent # Voids 1 1 # Bowel Movements 1 1 - Exam No acute distress, oriented 3. Currently on 3 L of oxygen. No respiratory distress. No use of accessory muscles. HEENT examination is grossly unremarkable. Mucous membranes are moist. No oral lesions. Neck supple. Full range of motion. No adenopathy thyromegaly or neck vein distention. Cardiovascular examination reveals regular rhythm rate. S1-S2 normal. No S3 or S4. No discernible murmur noted. Heart rate 88 bpm. Lungs reveal diminished breath sounds on the right. A few scattered rhonchi. Breath sounds on the left are clear. 1 L saturation is 95%. Abdomen soft bowel sounds are heard. No masses or tenderness. Extremities are intact. No cyanosis clubbing or edema. Skin is without rash or lesion. Neurologic examination is brief but nonfocal. - Labs CBC & Chem 7: 09/29/23 03:31 12 03:31 Labs: Abnormal Lab Results - Last 24 Hours (Table) 09/29/23 09/29/23 Range/Units 03:31 03:31 RBC 3.13 L (4.30-5.90) m/uL Hgb 9.6 L (13.0-17.5) gm/dL Hct 29.9 L (39.0-53.0) % Sodium 136 L (137-145) mmol/L Creatinine 0.53 L (0.66-1.25) mg/dL Microbiology - Last 24 Hours (Table) 09/27/23 09:10 Gram Stain - Preliminary Bronchoalviolar Lavage - Right Bronchial Washings Culture - Preliminary 09/27/23 09:10 Acid Fast Bacilli Smear - Preliminary Bronchoalviolar Lavage - Right Assessment and Plan Assessment: Right upper lobe non-small cell lung cancer S/P operative day #6, following a right-sided VATS with right upper lobectomy and mediastinal lymph node dissection. Patient had a previous robotic bronchoscopy and EBUS, as well as a previous mediastinoscopy. S/P bronchoscopy, and BAL, right middle lobe, for large mucous plugs, and right lung collapse, 09/27/2023. Acute atrial fibrillation with RVR, resolved. Severe COPD, with an FEV1 46% of predicted. History of prostate cancer status post prostatectomy. History of hypertension. History of hyperlipidemia. Remote history of nicotine dependence. Plan: Plan dated 09/25/2023. The patient was transferred down to the intensive care unit yesterday, after a rapid response was called on this patient. The patient developed atrial fibrillation with RVR, and was transferred down to the intensive care unit, for further monitoring and management. The patient was placed on amiodarone drip, and is currently running at 0.5 mg/m. The patient is now in normal sinus rhythm. We'll continue to watch the patient make recommendations were appropriate. Labs, x-rays, and medications are all reviewed. Prognosis is guarded. Lung function is poor. Plan dated 09/26/2023. The patient appears to be doing much better. He's currently on 3 L of oxygen. Back in sinus rhythm. Not receiving any IV fluids. There was no pneumothorax on chest x-ray. Labs, x-rays, and medications are reviewed. The right-sided chest tube will be removed today. Additional recommendations and suggestions are forthcoming. We will continue to follow the patient, and make re commendations along the way. Prognosis is guarded. Plan dated 09/27/2023. The patient's chest x-ray today showed near complete collapse of the right lung. The patient underwent bronchoscopy, at the bedside, room 250, anesthesia in attendance, Dr. Calles. The patient tolerated the procedure well. The patient had large mucous plugs, in the right middle lobe and right lower lobe. There were suctioned. We did a formal BAL of the right middle lobe. The patient tolerated the procedure well. Samples were sent to laboratory for analysis. A repeat chest x-ray shows partial improvement of the right lung collapse. Labs, x-rays, medications are reviewed. We will continue to follow make rec ommendations along the way. Prognosis is guarded. Plan dated 09/28/2023. The patient is doing much better. His chest x-rays much improved. His been weaned down from 4, to 3 L of oxygen. He is much more stable, and is seen today in room 250. He had a bronchoscopy at the bedside yesterday, assisted by anesthesia. Labs, x-rays, and medications are reviewed. He is not receiving any IV fluids. He remains on Levaquin. The fluid from the bronchoscopy, was cloudy, and had 99% PMNs. Additional recommendations and suggestions are forthcoming. Prognosis is guarded. Plan dated 09/29/2023. The patient appears to be doing much better. The patient has been weaned down to 1 L of oxygen. He's not receiving any IV fluids. He continues on Levaquin, which could be changed from IV to by mouth. Labs, x-rays, and medications are reviewed. The patient's chest x-rays improved. The BAL fluid, is either negative or pending. We will continue to follow the patient, and make recommendations along the way. According to cardiothoracic surgery, the patient will likely be discharged. No additional recommendations are made. Time with Patient: Less than 30
--- NOTE | 2023-09-29 11:47 | P.PN ---
Subjective Progress Note Date: 09/29/23 68-year-old gentleman with a right upper lobe non-small cell lung CA ,Status post robotic-assisted right upper lobectomy, intercostal nerve block, mediastinal lymph node dissection, developed A. fib with RVR postop. Telemetry sinus rhythm, amiodarone drip transitioned to oral. Right pleural chest tube to waterseal, with 50 MLS serosanguineous drainage over the last 24 hours. Chest x-ray reporting no evidence for sizable pneumothorax. Increased opacity right suprahilar region stable, right-sided volume loss with hyperexpansion of the left lung. 09/27/2023 recurrent episodes of A. fib with RVR during the night, received amiodarone, IV push Lopressor, cardiezem, converted to sinus rhythm this mor renzo. Feels weaker this morning with shortness of breath. Chest x-ray reports decreasing right upper lobe lucency, suspicious for pneumothorax/partial right lung collapse. Maintaining O2 sats in the 90s on 4 L nasal cannula. Evaluated by pulmonary and patient is scheduled for bronchoscopy. Afebrile, normal WBC. Hemoglobin 10.1, platelets 380, sodium 134, renal function stable. Blood sugars controlled.. 09/28/2023: Dr Perry kitchen, patient seen and evaluated bedside, heart rate better controlled, patient on 3 L of oxygen, Still in ICU, postoperative day 5 status post right upper lobectomy. Continue IV antibiotic with Levaquin. Blood work reviewed 09/29/2023: Patient seen and evaluated and bedside, patient is alert and oriented 4, is postoperative day 6 status post right upper lobe lobectomy. Patient is weaned down to 1 L of oxygen. Family medicine/critical care team sean taylor. Continue patient on IV antibiotics PHYSICAL EXAMINATION: GENERAL: The patient is alert and oriented x3, ill appearance nasal cannula in place HEENT: Pupils are round and equally reacting to light. EOMI. CARDIOVASCULAR: S1 and S2 present. Tachycardia noted irregular rhythm PULMONARY: Decreased breath sounds right lower lobe, rhonchi audible, chest bandage ABDOMEN: Soft, nontender, nondistended, normoactive bowel sounds. No palpable organomegaly. MUSCULOSKELETAL: No joint swelling or deformity. NEUROLOGICAL: Gross neurological examination did not reveal any focal deficits. Objective - Vital Signs Vital signs: Vital Signs Temp 97.8 F 09/29/23 08:00 Pulse 108 H 09/29/23 08:06 Resp 15 09/29/23 08:00 BP 140/67 09/29/23 08:00 Pulse Ox 91 L 09/29/23 08:00 FiO2 Intake & Output 09/28/23 09/29/23 09/29/23 18:59 06:59 18:59 Intake Total 630 400 400 Balance 630 400 400 Intake: IV 150 Levofloxacin 750Mg-D5w 150 Pmx 750 mg In Dextrose/ Water 1 150ml.bag @ 100 mls/hr IVPB Q24H [facility] Rx#: [id number] Oral 480 400 400 Other: Voiding Method Bedside Commode Bedside Commode Bedside Commode Urinal Urinal Urinal Diaper Diaper Diaper Incontinent Incontinent Incontinent # Voids 1 1 1 # Bowel Movements 1 1 1 - Labs CBC & Chem 7: 09/29/23 03:31 09/29/23 03:31 Labs: Abnormal Lab Results - Last 24 Hours (Table) 09/29/23 09/29/23 Range/Units 03:31 03:31 RBC 3.13 L (4.30-5.90) m/uL Hgb 9.6 L (13.0-17.5) gm/dL Hct 29.9 L (39.0-53.0) % Sodium 136 L (137-145) mmol/L Creatinine 0.53 L (0.66-1.25) mg/dL Microbiology - Last 24 Hours (Table) 09/27/23 09:10 Gram Stain - Preliminary Bronchoalviolar Lavage - Right Bronchial Washings Culture - Preliminary 09/27/23 09:10 Acid Fast Bacilli Smear - Preliminary Bronchoalviolar Lavage - Right Assessment and Plan Assessment: Assessment and plan Right upper lobe non-small cell lung cancer status post wax with right upper lobe lobectomy metastasis and lymph node dissection postoperative day 5 Right middle lobe mucus plugging, right lung collapse status post bronchoscopy bronchoalveolar low large History of ablation rapid monitor response Severe COPD History of prostate cancer status post prostatectomy Hypertension Hyperlipidemia Chronic nicotine use Patient seen by cardiology, pulmonary medicine, continue to wean down on oxygen as tolerated In regards to atrial fibrillation continue amiodarone, continue metoprolol, In regards to right lower lobe collapse/mucus plugging/pneumonia continue patient on Levaquin, continue breathing treatments In regards to COPD, continue patient on albuterol embolization every 6 hours when necessary Prognosis remains guarded monitored in ICU waiting for bed on 3 S. Time with Patient: Greater than 30
--- NOTE | 2023-09-29 14:28 | XR ---
EXAMINATION TYPE: XR chest 2V DATE OF EXAM: 09/29/2023 COMPARISON: 09/28/2023 INDICATION: Post lobectomy TECHNIQUE: Single frontal view of the chest is obtained. FINDINGS: The heart size is normal. The pulmonary vasculature is normal. There is diminished aeration on the right. Small effusion may be at the right lung base. There is an air-fluid level fluid in the right apex. Findings are stable over the interval. IMPRESSION: 1. Stable post lobectomy findings right hemithorax
[2023-09-29] MEDS: traMADol 50 MG TAB PO PRN (20:05)
[2023-09-29] MEDS: ATORVASTATIN 10 MG TAB PO SCH (20:06)
[2023-09-30 04:21] LABS: HCT 31.3 % (39.0-53.0); HGB 10.2 gm/dL (13.0-17.5); MCH 31.3 pg (25.0-35.0); MCHC 32.6 g/dL (31.0-37.0); MCV 96.1 fL (80.0-100.0); Mean Platelet Volume 7.3; Platelet Count 468 k/uL (150-450); RBC 3.26 m/uL (4.30-5.90); RDW 13.8 % (11.5-15.5); WBC 9.5 k/uL (3.8-10.6)
[2023-09-30 04:46] LABS: African American GFR (CKD) >90 (>60 ml/min/1.73 sqM); Anion Gap 8 mmol/L; Blood Urea Nitrogen 12 mg/dL (9-20); Calcium 8.8 mg/dL (8.4-10.2); Carbon Dioxide 28 mmol/L (22-30); Chloride 99 mmol/L (98-107); Glucose 92 mg/dL (74-99); Non-African American GFR(CKD) >90 (>60 ml/min/1.73 sqM); Sodium 135 mmol/L (137-145)
[2023-09-30] MEDS: PANTOPRAZOLE 40 MG TABLET PO SCH (06:33)
--- NOTE | 2023-09-30 07:29 | P.PN ---
Subjective Progress Note Date: 09/30/23 09/30/2023, the patient is postop day #7. The patient has undergone a robotic- assisted right upper lobe resection for non-small cell lung cancer. He is doing well. Is currently on 2 L of oxygen by nasal cannula with a pulse ox of 92%. Is using the incentive spirometer. Is awake and alert and sitting up on a chair. No major respiratory difficulties for now. Using incentive spirometer. The patient has a chest tube removed. The chest x-ray from today shows a very tiny right apical pneumothorax. No airspace disease. No consolidation. The white cell cause of 9.5, hemoglobin is at 10.2 with a platelet count of 46 6 and the rest of the electrolytes are all within normal limits. Normal renal function. Bronchoscopy in the lavage that was done on 09/27/2023 was negative. Cardiac rhythm is sinus. He is currently on amiodarone 400 mg by mouth twice a day, albuterol as needed, metoprolol 50 mg by mouth twice a day for rate control and is completing a course antibiotics of Levaquin Objective - Vital Signs Vital signs: Vital Signs Temp 98 F 09/30/23 04:00 Pulse 82 09/30/23 04:00 Resp 12 09/30/23 04:00 BP 137/69 09/30/23 04:00 Pulse Ox 92 L 09/30/23 04:00 FiO2 Intake & Output 09/29/23 09/30/23 09/30/23 18:59 06:59 18:59 Intake Total 400 Balance 400 Weight 82.2 kg Intake: Oral 400 Other: Voiding Method Bedside Commode Bedside Commode Urinal Urinal Diaper Diaper Incontinent Incontinent # Voids 1 1 # Bowel Movements 1 1 - Exam No acute distress, oriented 3. Currently on 2 L of oxygen. No respiratory distress. No use of accessory muscles. HEENT examination is grossly unremarkable. Mucous membranes are moist. No oral lesions. Neck supple. Full range of motion. No adenopathy thyromegaly or neck vein distention. Cardiovascular examination reveals regular rhythm rate. S1-S2 normal. No S3 or S4. No discernible murmur noted. Lungs reveal diminished breath sounds on the right. A few scattered rhonchi. Breath sounds on the left are clear. 2 L saturation is 95%. Abdomen soft bowel sounds are heard. No masses or tenderness. Extremities are intact. No cyanosis clubbing or edema. Skin is without rash or lesion. Neurologic examination is brief but nonfocal. - Labs CBC & Chem 7: 09/30/23 03:18 09/30/23 03:18 Labs: Abnormal Lab Results - Last 24 Hours (Table) 09/30/23 09/30/23 Range/Units 03:18 03:18 RBC 3.26 L (4.30-5.90) m/uL Hgb 10.2 L (13.0-17.5) gm/dL Hct 31.3 L (39.0-53.0) % Plt Count 468 H (150-450) k/uL Sodium 135 L (137-145) mmol/L Creatinine 0.55 L (0.66-1.25) mg/dL Microbiology - Last 24 Hours (Table) 09/27/23 09:10 Gram Stain - Preliminary Bronchoalviolar Lavage - Right Bronchial Washings Culture - Preliminary Assessment and Plan Plan: Right upper lobe non-small cell lung cancer S/P operative day #7, following a right-sided VATS with right upper lobectomy and mediastinal lymph node dissection. Patient had a previous robotic bronchoscopy and EBUS, as well as a previous mediastinoscopy. Patient is recovering reasonably well and the patient may have very tiny right apical pneumothorax Acute hypoxic respiratory failure, stable and currently on 2 L of oxygen by nasal cannula S/P bronchoscopy, and BAL, right middle lobe, for large mucous plugs, and right lung collapse, 09/27/2023. The cultures are still negative and the patient's chest x-ray from today shows a well expanded right lung. Acute atrial fibrillation with RVR, resolved. Patient is back to sinus rhythm. The patient on amiodarone and metoprolol. Severe COPD, with an FEV1 46% of predicted. History of prostate cancer status post prostatectomy. History of hypertension. History of hyperlipidemia. Remote history of nicotine dependence. Plan Continue using incentive spirometer Increase mobility Chest x-ray from today was noted Surgical wound is dry clean and intact Cardiac rhythm is sinus Continue amiodarone and metoprolol Home O2 evaluation set up Possible home today or within next 24 hours
--- NOTE | 2023-09-30 07:40 | XR ---
EXAMINATION TYPE: XR chest 2V DATE OF EXAM: 09/30/2023 6:22 AM CLINICAL INDICATION:Male, 68 years old with history of post lobectomy; [facility] COMPARISON: Chest radiograph from one day prior. TECHNIQUE: XR chest 2V Frontal and lateral views of the chest. FINDINGS: Lungs/Pleura: Right apical lucency is has steadily decrease in size dating back to multiple priors an d is favored to represent a right-sided pneumothorax. There is no evidence of pleural effusion, focal consolidation, or left pneumothorax. Pulmonary vascularity: Unremarkable. Heart/mediastinum: Cardiomediastinal silhouette is unremarkable. Musculoskeletal: No acute osseous pathology. IMPRESSION: Post lobectomy changes with apical lucency that has steadily decreased in size from multiple priors l ikely representing decreasing pneumothorax.
--- NOTE | 2023-09-30 07:47 | P.PN ---
Subjective Progress Note Date: 09/30/23 Principal diagnosis: Right upper lobe non small cell lung cancer. History of prostate cancer status post radical prostatectomy 04/2023 with subsequent urinary incontinence, hyperte nsion, hyperlipidemia, severe COPD, previous tobacco dependence, pneumothorax after mediastinoscopy in 07/2023 POD #7 bronchoscopy, robotic assisted thoracoscopic right upper lobectomy, intercostal nerve block at 2 levels, mediastinal lymph node dissection New onset afib with RVR, unexpected although not uncommon after surgical lobectomy, currently sinus rhythm Mucus plugging, right long with right lung collapse, status post bronchoscopy, airway examination, therapeutic lavage, BAL right middle lobe by Dr. Mercado and Dr. Mitchell The patient was seen and examined this morning sitting up in a recliner in no acute distress. States pain is well-controlled, has only taken 1 dose of tramadol in the last 24 hours. Currently on 2 LPM NC with oxygen saturation in the mid 90s, home oxygen evaluation was completed, patient's oxygen saturation is 88% on room air at rest, 86% on room air with activity. Patient will need home oxygen secondary to his diagnoses of COPD and lung cancer. No episodes of atrial fibrillation for greater than 48 hours. Currently sinus rhythm, hemodynamically stable. Able to void without difficulty. CXR, labs reviewed. Patient has ambulated in the hallway without difficulty. Anticipate discharge to home today with oxygen. No other new concerns. Objective - Vital Signs Vital signs: Vital Signs Temp 98 F 09/30/23 04:00 Pulse 82 09/30/23 04:00 Resp 12 09/30/23 04:00 BP 137/69 09/30/23 04:00 Pulse Ox 92 L 09/30/23 07:36 FiO2 Intake & Output 09/29/23 09/30/23 09/30/23 18:59 06:59 18:59 Intake Total 400 Balance 400 Weight 82.2 kg Intake: Oral 400 Other: Voiding Method Bedside Commode Bedside Commode Urinal Urinal Diaper Diaper Incontinent Incontinent # Voids 1 1 # Bowel Movements 1 1 - Exam CONSTITUTIONAL: Appears comfortable, cooperative, no acute distress RESPIRATORY: Lungs sounds diminished in the bases bilaterally. Respirations even, nonlabored. Currently on 2 LPM NC with oxygen saturation 92%. Able to achieve 1250 mL on incentive spirometry. Strong cough. CARDIOVASCULAR: S1, S2 present. Regular rate and rhythm, sinus rhythm on telemetry. Palpable peripheral pulses bilaterally. No edema present. No calf pain or tenderness noted. SCDs present. GASTROINTESTINAL: Abdomen soft, nontender, nondistended. Active bowel sounds present 4 quadrants. Tolerating diet. Positive bowel movement GENITOURINARY: Continues to void INTEGUMENTARY: Skin is warm and dry NEUROLOGIC: Cranial nerves II through XII intact MUSKULOSKELETAL: Able to move all extremities, strength equal bilaterally PSYCHIATRIC: Alert and oriented to person place and time, appropriate affect, intact judgment and insight - Allied health notes Allied health notes reviewed: nursing - Labs CBC & Chem 7: 09/30/23 03:18 09/30/23 03:18 Labs: Abnormal Lab Results - Last 24 Hours (Table) 09/30/23 09/30/23 Range/Units 03:18 03:18 RBC 3.26 L (4.30-5.90) m/uL Hgb 10.2 L (13.0-17.5) gm/dL Hct 31.3 L (39.0-53.0) % Plt Count 468 H (150-450) k/uL Sodium 135 L (137-145) mmol/L Creatinine 0.55 L (0.66-1.25) mg/dL Microbiology - Last 24 Hours (Table) 09/27/23 09:10 Gram Stain - Preliminary Bronchoalviolar Lavage - Right Bronchial Washings Culture - Preliminary - Imaging and Cardiology Chest x-ray: image reviewed Assessment and Plan Assessment: Right upper lobe non small cell lung cancer, status post robotic assisted thoracoscopic right upper lobectomy, mediastinal lymph node dissection Pain, secondary to surgery, status post intercostal nerve block at 2 levels History of prostate cancer status post radical prostatectomy 04/2023 with subsequent urinary incontinence History of hypertension History of hyperlipidemia Severe COPD, FEV1 53% of predicted, DLCO 53% Previous tobacco dependence Pneumothorax after mediastinoscopy in 07/2023 New onset afib RVR, currently sinus Mucus plugging, right long with right lung collapse, status post bronchoscopy, airway examination, therapeutic lavage, BAL right middle lobe by Dr. Mercado and Dr. Mitchell Plan: Continue beta maryan, amiodarone Wean oxygen as tolerated, encourage incentive spirometry 10x every hour, bronchodilators per pulmonology Increase activity as tolerated, out of bed for all meals Pain control with current medication regimen Will monitor daily labs and CXR, final pathology pending GI/DVT prophylaxis Continue home medications Smoking cessation counseling and education offered, patient encouraged to continue to refrain from smoking Will discharge to home today when case management/social work can set up home oxygen Patient may shower daily More recommendations to follow
[2023-09-30] MEDS: sulfaSALAzine 500 MG TAB PO SCH (08:14)
[2023-09-30] MEDS: LEVOFLOXACIN 750 MG TAB PO SCH (08:15)
[2023-09-30] MEDS: LOSARTAN 25 MG TAB PO SCH (08:15)
[2023-09-30] MEDS: METOPROLOL TARTRATE 50 MG TAB PO SCH (08:15)
[2023-09-30] MEDS: HEPARIN SODIUM,PORCINE 5,000 UNIT/ML 1 ML VIAL SQ SCH (08:15)
[2023-09-30] MEDS: MULTIVITAMINS, THERA 1 EACH TAB PO SCH (08:15)
[2023-09-30] MEDS: APALUTAMIDE 60 MG PO SCH (08:16)
[2023-09-30] MEDS: AMIODARONE 200 MG TAB PO SCH (08:16)
--- NOTE | 2023-09-30 09:41 | P.PN ---
Subjective Progress Note Date: 09/30/23 This is a 68-year-old gentleman with a right upper lobe non-small cell lung CA ,Status post robotic-assisted right upper lobectomy, intercostal nerve block, mediastinal lymph node dissection, developed A. fib with RVR postop. Telemetry sinus rhythm, amiodarone drip transitioned to oral. Right pleural chest tube to waterseal, with 50 MLS serosanguineous drainage over the last 24 hours. Chest x-ray reporting no evidence for sizable pneumothorax. Increased opacity right suprahilar region stable, right-sided volume loss with hyperexpansion of the left lung. 09/27/2023 recurrent episodes of A. fib with RVR during the night, received amiodarone, IV push Lopressor, cardiezem, converted to sinus rhythm this morning. Feels weaker this morning with shortness of breath. Chest x-ray reports decreasing right upper lobe lucency, suspicious for pneumothorax/partial right lung collapse. Maintaining O2 sats in the 90s on 4 L nasal cannula. Evaluated by pulmonary and patient is scheduled for bronchoscopy. Afebrile, normal WBC. Hemoglobin 10.1, platelets 380, sodium 134, renal function stable. Blood sugars controlled. Bronchoscopy completed on 09/27/2023 reported mucus plugging , right lung with right lung collapse, pathology negative negative for diagnostic malignancy, 09/24 lymph node biopsy pending . 09/30/2023 Significant clinical improvement. Telemetry sinus rhythm, on Amiodarone and metoprolol, sitting up in chair, maintaining O2 sats in the 90s on 2 L nasal cannula. Chest x-ray right reporting steadily decreased right pneumothorax. Afebrile, normal WBC. Denies chest pain, palpitations or increasing shortness of breath. Eagerly awaiting discharge home today. Objective - Vital Signs Vital signs: Vital Signs Temp 97.6 F 09/30/23 08:00 Pulse 111 H 09/30/23 08:00 Resp 14 09/30/23 08:00 BP 128/64 09/30/23 08:00 Pulse Ox 93 L 09/30/23 08:00 FiO2 Intake & Output 09/29/23 09/30/23 09/30/23 18:59 06:59 18:59 Intake Total 400 Balance 400 Weight 82.2 kg Intake: Oral 400 Other: Voiding Method Bedside Commode Bedside Commode Bedside Commode Urinal Urinal Urinal Diaper Diaper Diaper Incontinent Incontinent Incontinent # Voids 1 1 # Bowel Movements 1 1 - Exam PHYSICAL EXAM: VITAL SIGNS: [As above] GENERAL: Alert and oriented 3 ,Sitting up in chair, no acute distress HEENT: Normocephalic, Conjunctivae normal. eyes normal. NECK: Supple, No JVD. CARDIOVASCULAR: S1, S2 regular. No murmur RESPIRATION: Breath sounds diminished in the bases. Minimally Scattered rhonchi. ABDOMEN: Soft, nondistended, nontender . No guarding.+BS LEGS: No edema. no swelling NERVOUS SYSTEM: Cranial N 2-12 grossly normal. No focal deficits. Strength and sensation grossly intact. Skin: Warm and dry, no rash - Labs CBC & Chem 7: 09/30/23 03:18 09/30/23 03:18 Labs: Abnormal Lab Results - Last 24 Hours (Table) 09/30/23 09/30/23 Range/Units 03:18 03:18 RBC 3.26 L (4.30-5.90) m/uL Hgb 10.2 L (13.0-17.5) gm/dL Hct 31.3 L (39.0-53.0) % Plt Count 468 H (150-450) k/uL Sodium 135 L (137-145) mmol/L Creatinine 0.55 L (0.66-1.25) mg/dL Microbiology - Last 24 Hours (Table) 09/27/23 09:10 Gram Stain - Final Bronchoalviolar Lavage - Right Bronchial Washings Culture - Final Assessment and Plan Assessment: Right upper lobe non small cell lung cancer, status post robotic assisted thoracoscopic right upper lobectomy, mediastinal lymph node dissection. Lymph node pathology pending. Right lung collapse, status post status post bronchoscopy reporting mucus plugging. Cultures negative New onset atrial fibrillation, currently sinus rhythm COPD, severe Hypertension Hyperlipidemia Nicotine dependence History of prostate cancer status post prostatectomy Plan: Continue on current medication regime ,monitoring and symptomatic treatment. Discharge planning in progress as per CTS. home O2.Maintain aggre ssive pulmonary toileting at home with incentive spirometer reinforced . Follow up in Dr. Ramirez in 1 week. The impression and plan of care has been dictated as directed. : I performed a history and examination of this patient, discussed the same with the dictator. I agree with the dictator's note ,documented as a scribe. Any additional findings or plans will be noted.
[2023-09-30 12:48] VITALS: BP 126/66; PULSE 98; RESP 16; TEMP 97.9
--- NOTE | 2023-09-30 13:09 | P.DS ---
Providers Date of admission: 09/23/23 05:37 Expected date of discharge: 09/30/23 Attending physician: Jhony Whalen MD Consults: 09/23/23 17:33 Consult Physician Routine Consulting Provider: Efra Mercado Consult Reason/Comments: post wedge resection Do you want consulting provider notified?: Yes 09/24/23 07:28 Consult Physician Routine Consulting Provider: Wicho Ramirez Reason/Comments: med mgmt; known to you Do you want consulting provider notified?: Yes Primary care physician: Wicho Ramirez [facility] Course: FINAL DIAGNOSIS: 1. Right upper lobe non small cell lung cancer 2. History of prostate cancer status post radical prostatectomy 04/2023 with subsequent urinary incontinence 3. History of hypertension 4. History of hyperlipidemia 5. Severe COPD, FEV1 53% of predicted, DLCO 53% 6. Previous tobacco dependence 7. Pneumothorax after mediastinoscipy in 07/2023 8. New onset afib RVR, discharged in sinus 9. Mucus plugging, right lung with right lung collapse PRINCIPAL PROCEDURE: 1. Bronchoscopy, robotic assisted thoracoscopic right upper lobectomy, intercostal nerve block at 2 levels, mediastinal lymph node dissection 2. Repeat bronchoscopy with airway examination, therapeutic lavage, BAL right middle lobe by pulmonology HISTORY OF PRESENT ILLNESS: This is a 68 year old male patient who follows outpatient with Dr. Ramirez for primary care and Dr. Dinh for pulmonology. He underwent chest x-ray previously as pre-operative clearance prior to robotic prostatectomy which revealed a 3 cm lung nodule. Further work-up included biopsy revealing non small cell lung carcinoma, PET/CT revealed some uptake in the R4 and L4 regions. EBUS of R4 and R2 lymph nodes were negative. No L4 lymph node was identified on EBUS. He was referred to Dr. Whalen from cardiothoracic surgery who recommended he undergo mediastinoscopy which was completed and revealed negative R4 station and no discernable lymph node was identified in the L4 region. Subsesquently lobectomy was recommended for stage 1b lesion. The usual perioperative course was discussed in detail with the patient and his family, all risks and benefits were explained, all questions were answered, and consent was obtained to proceed with surgery. The patient was scheduled for elective surgery at the earliest possible date. HOSPITAL COURSE: The patient was brought to the hospital on 09/23/23, taken to the preoperative area, prepared in the usual fashion, and subsequently taken to the operating room where Dr. Whalen performed bronchoscopy and robotic assisted thoracoscopic right upper lobectomy, intercostal nerve block at 2 levels, and mediastinal lymph node dissection. Upon completion of surgery the patient was extubated and taken to the recovery room for further monitoring and rehabilitation. He was eventually admitted to the cardiac stepdown unit where he continued to recovery. His chest tube was discontinued uneventfully. Unfortunately he experienced rapid atrial fibrillation as well as mucus plugging and right middle lobe collapse and he was transferred to the ICU for closer monitoring. He underwent successful treatment with amiodarone/metoprolol and bronchoscopy, respectively. Transfer orders were placed for 3 S. cardiac stepdown unit, however there was no bed availability and the patient remained on ICU as a stepdown patient until discharge. His oxygen was titrated down although he continued to require 2LPM NC of oxygen at discharge, he continued to work with physical and occupational therapy, he was tolerating oral diet, his pain was controlled, and he was ready to be discharged to home with [facility] on postoperative day #7. He received written and verbal instruction regarding his medications, activity restrictions, signs and symptoms requiring physician notification, and follow-up appointments. Patient Condition at Discharge: Stable Plan - Discharge Summary Discharge Rx Participant: No New Discharge Prescriptions: New Amiodarone [Cordarone] 400 mg PO BID #28 tab Levofloxacin [Levaquin] 750 mg PO DAILY #3 tab Metoprolol Tartrate [Lopressor] 50 mg PO BID #60 tab traMADol HCl [Ultram] 50 mg PO QID PRN #12 tab PRN Reason: Breakthrough Pain Continue Losartan Potassium [Cozaar] 25 mg PO QAM Atorvastatin Calcium 10 mg PO HS Multivitamins, Thera [Multivitamin (formulary)] 1 tab PO DAILY sulfaSALAzine [Sulfasalazine] 1,000 mg PO BID Apalutamide [Erleada] 4 tab PO DAILY Albuterol Nebulized [Ventolin Nebulized] 2.5 mg INHALATION Q6H PRN PRN Reason: Shortness Of Breath Albuterol Inhaler [Ventolin Hfa Inhaler] 1 - 2 puff INHALATION Q6H PRN PRN Reason: Shortness Of Breath Acetaminophen Tab [Tylenol] 650 mg PO Q4HR PRN tab PRN Reason: Mild To Moderate Pain (1 - 6) Discharge Medication List Atorvastatin Calcium 10 mg PO HS 04/25/23 [History] Losartan Potassium [Cozaar] 25 mg PO QAM 04/25/23 [History] sulfaSALAzine [Sulfasalazine] 1,000 mg PO BID 04/25/23 [History] Apalutamide [Erleada] 4 tab PO DAILY 07/29/23 [History] Albuterol Inhaler [Ventolin Hfa Inhaler] 1 - 2 puff INHALATION Q6H PRN 08/14/23 [History] Albuterol Nebulized [Ventolin Nebulized] 2.5 mg INHALATION Q6H PRN 08/14/23 [Hi story] Multivitamins, Thera [Multivitamin (formulary)] 1 tab PO DAILY 08/14/23 [History] Acetaminophen Tab [Tylenol] 650 mg PO Q4HR PRN tab 08/17/23 [Rx] Amiodarone [Cordarone] 400 mg PO BID #28 tab 09/30/23 [Rx] Levofloxacin [Levaquin] 750 mg PO DAILY #3 tab 09/30/23 [Rx] Metoprolol Tartrate [Lopressor] 50 mg PO BID #60 tab 09/30/23 [Rx] traMADol HCl [Ultram] 50 mg PO QID PRN #12 tab 09/30/23 [Rx] Follow up Appointment(s)/Referral(s): Wicho Ramirez DO [Primary Care Provider] - 1 Week Jhony Whalen MD [STAFF PHYSICIAN] - 10/11/23 1:00 pm Myla Dinh MD [STAFF PHYSICIAN] - 10/18/23 1:30 pm Activity/Diet/Wound Care/Special Instructions: DISCHARGE INSTRUCTIONS: 1. No driving for 2 weeks, or until physician gives their ok. 2. No lifting, pushing, or pulling more than 10 pounds for 2 weeks. The physician will advise of any restriction changes. 3. Continue pain control per as needed orders. Alternate acetaminophen (Tylenol) and ibuprofen (Motrin/Advil) for pain. 4. Continue with incentive spirometry and splinting until otherwise directed by the physician. 5. Leave chest tube dressing for 48 hours. After that, remove all dressings and shower daily. 6. Routine incision care. No powders, lotions, ointments on incisions. 7. Please call surgeon/MEDICAL ORDERLY for temp greater than 101 F or purulent drainage from incisions. 8. Smoking cessation counseling and program information provided. [facility] (Home Care Agency) RN to complete home visit within 24 hours of discharge [id number] [place]. [id number] Quitting smoking is the most important step you can take to improve your health. For additional information and assistance to quit smoking, please call the [place] tobacco quit line (8-927-XWJY-NOW/ ) or online: [email or web address] Discharge Disposition: HOME WITH HOME HEALTH SERVICES
[2023-10-01 10:20] LABS: Nucleated Cells, Body Fluid 76 /UL
--- NOTE | 2023-10-02 13:46 | CDI ---
Documentation Clarification Form Date: 10/02/2023 12:53:38 PM From: Kaylyn Stock RN, CCDS Email: [email or web address] Admit Date: 09/23/2023 05:37:00 AM Patient Name: Mitchel Mcgowan Visit Number: [id number] Discharge Date: 09/30/2023 12:56:00 PM ATTENTION: The Clinical Documentation Specialists (CDI) and [facility] Coding Staff appreciate your assistance in clarifying documentation. Please respond to the clarification below the line at the bottom and electronically sign. The CDI & [facility] Coding staff will review the response and follow-up if needed. Please note: Queries are made part of the Legal Health Record. If you have any questions, please contact the author of this message via ITS. Dr. Jhony Whalen Your patient is s/p RUL lobectomy and was unable to wean from oxygen at discharge. Based on this information and the findings below, is there an additional diagnosis that is clinically appropriate for this patient? History/Risk Factors: Smoker, severe COPD, RUL non-small cell lung cancer, s/p VATS with RUL lobectomy and lymph node dissection. Lung collapse, s/p bronchoscopy and BAL with removal of large mucus plugs. Tobacco use: current Clinical Indicators: 09/28 CTS: "Will try to wean off oxygen, if able patient likely may be discharged to home tomorrow." 09/29 CTS: "So far unsuccessful with weaning off oxygen, likely discharge to home tomorrow when case management/social work can set up home oxygen." 09/29 O2 assessment: w/exercise pox 92% 2LNC; at rest 94% 2LNC; w/exercise 86% room air; at rest 88% room air 09/30 Pulmonary: "Acute hypoxic respiratory failure, stable and currently on 2 L of oxygen by nasal cannula. 09/27-09/30 Pulse oximetry: 90-96% 3LNC 1-4LNC Lung/Breathing assessment: diminished in the bases and the right Treatment: s/p bronchoscopy with BAL and removal of mucus plugs. Discharged on home oxygen Breathing tx: Albuterol 2.5mg Q6H prn 09/24-09/30 Oxygen: 1-6LNC Is there an additional diagnosis that is clinically appropriate for this patient? [ x ] Acute Pulmonary Insufficiency following VATS and lobectomy procedure [ ] Acute Hypoxic Respiratory Failure (pO2 <60 mm Hg or SpO2 <91% on room air) [ ] Other Diagnosis, please specify [ ] Unable to determine MTDD
== END 2023-09-30 12:56 | disposition home health service (06) | DRG 163 ==
LOC: 2ORMAIN 05:37 → EDSTATUS 07:30 → 3SCARD 15:44 → 2SICU 09-24 18:21
PROVIDERS: ADMIT Thoracic Surgery (Cardiothoracic Vascular Surgery); ATTEND Thoracic Surgery (Cardiothoracic Vascular Surgery)
PROC: 07B74ZX Excision of Thorax Lymphatic, Percutaneous Endoscopic Approach, Diagnostic (ICD-10-PCS; 2023-09-23)
PROC: 8E0W8CZ Robotic Assisted Procedure of Trunk Region, Via Natural or Artificial Opening Endoscopic (ICD-10-PCS; 2023-09-23)
PROC: 3E0T3BZ Introduction of Anesthetic Agent into Peripheral Nerves and Plexi, Percutaneous Approach (ICD-10-PCS; 2023-09-23)
PROC: 0BTC4ZZ Resection of Right Upper Lung Lobe, Percutaneous Endoscopic Approach (ICD-10-PCS; principal; 2023-09-23 07:30)
PROC: 0B9D8ZX Drainage of Right Middle Lung Lobe, Via Natural or Artificial Opening Endoscopic, Diagnostic (ICD-10-PCS; 2023-09-27)
PROC: 0BC68ZZ Extirpation of Matter from Right Lower Lobe Bronchus, Via Natural or Artificial Opening Endoscopic (ICD-10-PCS; 2023-09-27)
PROC: 0BC58ZZ Extirpation of Matter from Right Middle Lobe Bronchus, Via Natural or Artificial Opening Endoscopic (ICD-10-PCS; 2023-09-27)
PROC: 0BC38ZZ Extirpation of Matter from Right Main Bronchus, Via Natural or Artificial Opening Endoscopic (ICD-10-PCS; 2023-09-27)
DX: C34.11 Malignant neoplasm of upper lobe, right bronchus or lung (principal); J95.1 Acute pulmonary insufficiency following thoracic surgery; E87.1 Hypo-osmolality and hyponatremia; J93.9 Pneumothorax, unspecified; J44.9 Chronic obstructive pulmonary disease, unspecified; I10 Essential (primary) hypertension; I48.91 Unspecified atrial fibrillation; E78.5 Hyperlipidemia, unspecified; R32 Unspecified urinary incontinence; N32.0 Bladder-neck obstruction; Z99.81 Dependence on supplemental oxygen; Z85.46 Personal history of malignant neoplasm of prostate; Z90.79 Acquired absence of other genital organ(s); Z80.9 Family history of malignant neoplasm, unspecified; Z87.891 Personal history of nicotine dependence
CPT/HCPCS: 31624; 31645; 64999; 71045; 71046; 80048; 83735; 84443; 85025; 85027; 86850; 86900; 86901; 86920; 87070; 87102; 87116; 87205; 87206; 87496; 87498; 87502; 87529; 87634; 87635; 87798; 88108; 88305; 88309; 88313; 89050; 94640; 94760

== ENCOUNTER → 2023-10-09 | Outpatient (CLI) | payer MEDICARE ==
--- NOTE | 2023-10-09 18:48 | XR ---
EXAMINATION TYPE: XR chest 2V DATE OF EXAM: 10/09/2023 COMPARISON: 09/30/2023 INDICATION: Chest pain TECHNIQUE: Frontal and lateral views of the chest are obtained. FINDINGS: The heart size is normal. The pulmonary vasculature is normal. Small right pleural effusion is present.. IMPRESSION: 1. Small right pleural effusion. This appears stable from comparison.
== END | disposition home or self-care (01) ==
LOC: RADXRMAIN 11:23
PROVIDERS: ATTEND Thoracic Surgery (Cardiothoracic Vascular Surgery)
DX: J90 Pleural effusion, not elsewhere classified (principal); R07.9 Chest pain, unspecified
CPT/HCPCS: 71046

== ENCOUNTER → 2024-05-29 | Outpatient (CLI) | payer MEDICARE ==
[2024-05-29 10:56] LABS: African American GFR (CKD) >90 (>60 ml/min/1.73 sqM); Blood Urea Nitrogen 20 mg/dL (9-20); Non-African American GFR(CKD) >90 (>60 ml/min/1.73 sqM)
--- NOTE | 2024-05-29 11:32 | CT ---
EXAMINATION TYPE: CT chest w con DATE OF EXAM: 05/29/2024 COMPARISON: 05/31/2023 HISTORY: Hx lung ca, routine follow up CT DLP: 464.20 mGycm Automated exposure control for dose reduction was used. TECHNIQUE: CT scan of the chest is performed with IV Contrast, patient injected with 100 mL of Isovue 300. MIP Images are created on CT scanner and reviewed. 3D reconstructed images are created on an independent workstation and reviewed. FINDINGS: There are stable moderate emphysematous changes. Patient is status post right upper lobe lobectomy fo r lung cancer. The 4 mm subpleural parenchymal nodule in the left upper lobe medially has grown significantly interv al measures 16.3 mm it is highly suspicious for neoplasm particularly given the history of lung cance r. There is no mediastinal, hilar or axillary adenopathy. There is no pleural effusion, pleural thickening or pneumothorax. Limited scanning through the upper abdomen reveals an enlarging left adrenal mass. Previously measure d approximately 12 mm and now measures 22 mm. Is suspicious for metastatic disease. There are no focal destructive or sclerotic bone lesions.. IMPRESSION: Findings consistent with recurrent/metastatic lung cancer with a growing nodule in the left upper lob e and a growing nodule in the left adrenal gland. No osseous lesions identified.
== END | disposition home or self-care (01) ==
LOC: RADCTMAIN 10:10
PROVIDERS: ATTEND Internal Medicine Critical Care Medicine
DX: C34.90 Malignant neoplasm of unspecified part of unspecified bronchus or lung (principal)
CPT/HCPCS: 82565; 84520; 71260; 36415; Q9967

== ENCOUNTER → 2024-07-10 | Outpatient (CLI) | payer MEDICARE ==
--- NOTE | 2024-07-10 19:36 | PE ---
EXAMINATION TYPE: PET CT fusion skull to thigh DATE OF EXAM: 07/10/2024 CLINICAL INDICATION:Male, 69 years old with history of R91.1 SOLITARY PULMONARY NODULE; TECHNIQUE: Following the intravenous administration of 9.3 mCi of F-18 FDG, whole body images are p erformed from the skull base to the midthigh. Images are reviewed on the computer in the coronal, ax ial, and sagittal planes. Reconstructed rotating images are created on independent workstation and r eviewed on the computer. A non-contrast CT is performed in conjunction with the PET scan. Glucose l evel 116 mg/dL CT DLP: 877.81 mGycm, Automated exposure control for dose reduction was used. COMPARISON: CT 05/29/24, 08/01/2023, 05/31/2023, 03/20/2023 PET/CT 07/13/2023, MRI: 08/27/2023 FINDINGS: Mediastinal SUV mean is 2.4. Hepatic parenchyma SUV mean is 3.0. SKULL BASE AND NECK: No suspicious radiotracer activity. CHEST, MEDIASTINUM, AND HILAR REGION: Postsurgical changes from right upper lobectomy with sutures identified in volume loss. No suspicious radiotracer uptake is identified within this region. Left upper lobe apical 1.3 cm pulmonary nodule. Corresponding to most recent CT chest. Previously neymar sured 0.7 cm in prior PET/CT. Demonstrates a maximum SUV of 16.7. ABDOMEN AND PELVIS: No suspicious radiotracer activity. Previously seen left adrenal gland nodule retrospectively represented trace fluid. No suspicious lyti c is uptake within the left adrenal gland. MUSCULOSKELETAL STRUCTURES: No suspicious radiotracer activity. OTHER CT: Bilateral carotid bulb calcifications with right greater than left. Punctate macrocalcifica tion within the left thyroid lobe adjacent to a 1 cm hypodense nodule. Atherosclerotic calcification of the aortic arch and its branches. Rtmb-bm-[id number] coronary arterial calcifications. Small hiatal hernia. Small fat filled umbilical hernia with additional supraumbilical fat filled midline small inc isional hernia. Prostate gland is absent or atrophic. Fat filled right inguinal hernia. Bilateral vas ectomy clips. Mild centrilobular emphysematous changes. Degenerative changes of the spine. IMPRESSION: 1. Post surgical changes from right upper lobectomy without suspicious radiotracer uptake in this re gion. However there is redemonstration of left upper lobe 1.3 cm pulmonary nodule from prior CT chest which is intensely FDG avid. This is most consistent with recurrent/metastatic disease. 2. No other suspicious radiotracer activity identified.
== END | disposition home or self-care (01) ==
LOC: RADPETMAIN 09:33
PROVIDERS: ATTEND Internal Medicine Critical Care Medicine
DX: R91.1 Solitary pulmonary nodule
CPT/HCPCS: 78815

== ENCOUNTER 2024-07-30 10:31 | Day surgery (SDC) | payer MEDICARE ==
[2024-07-29 09:18] VITALS: BMI 28.6
[~2024-07-30 10:31] MED LIST changes: -DEXAMETHASONE SOD PHOSPHATE 4 MG/ML 1 ML VIAL IV ONE; +HYDROmorphone 0.5 MG/0.5 ML SYRINGE IVP PRN; +LACTATED RINGERS 1,000 ML IV SCH; +MIDAZOLAM 2 MG/2 ML VIAL IV PRN; -ONDANSETRON 4 MG/2 ML VIAL IVP ONE; -droPERidol 5 MG/2 ML VIAL IVP PRN; +fentaNYL (PF) 50 MCG/ML 2 ML AMP IVP PRN
--- NOTE | 2024-07-30 11:22 | CT ---
EXAMINATION TYPE: CT chest wo con DATE OF EXAM: 07/30/2024 COMPARISON: 05/29/2024 HISTORY: pre bronchial navigation CT DLP: 702 mGycm. Automated Exposure Control for Dose Reduction was Utilized. TECHNIQUE: CT scan of the thorax is performed without IV contrast. FINDINGS: There are mild emphysematous changes predominately within the upper lobes. There is a 1.6 cm spiculated mass in left upper lobe medially suspicious for neoplasm. No additional pulmonary nodules are seen. There is no airspace consolidation or abnormal interstitial density. There is no pleural effusion or pneumothorax. The great vessels the chest are normal there is a 13 mm mildly enlarged mediastinal lymph node. Limited scanning through the upper abdomen reveals a small hiatal hernia. There are multiple obstruct ing right renal calculi the largest of which measures approximately 7 mm. The left adrenal gland is n odular but stable. IMPRESSION: 1. Emphysematous changes. 2. 1.6 cm spiculated mass in the left upper lobe medially highly suspicious for neoplasm. 3. No acute cardiopulmonary disease. [facility], Workstation: [id number] 07/30/2024 11:20 AM
[2024-07-30] MEDS: IV FLUID CONTINUATION 1,000 ML IV ONE ×2 (11:52→12:53)
[2024-07-30] MEDS: LACTATED RINGERS 1,000 ML IV SCH (11:53)
[2024-07-30] MEDS: DEXAMETHASONE SOD PHOSPHATE 4 MG/ML 1 ML VIAL IV ONE (12:09)
[2024-07-30] MEDS: ONDANSETRON 4 MG/2 ML VIAL IVP ONE (12:09)
[2024-07-30] MEDS ORDERED: SUCCINYLCHOLINE CHLORIDE 200 MG/10 ML VIAL IV ONE (12:57)
[2024-07-30] MEDS ORDERED: LIDOCAINE 4% LTA KIT (4 ML) TOPICAL ONE (12:57)
[2024-07-30] MEDS ORDERED: ROCURONIUM 10 MG/ML (5 ML VIAL) IV ONE (12:57)
[2024-07-30] MEDS ORDERED: NEOSTIGMINE 1 MG/ML 10 ML VIAL ONE (12:57)
[2024-07-30] MEDS ORDERED: PROPOFOL 10 MG/ML 20 ML VIAL IV ONE (12:57)
[2024-07-30] MEDS ORDERED: GLYCOPYRROLATE 0.2 MG/ML 2 ML VIAL ONE (12:57)
[2024-07-30] MEDS ORDERED: LIDOCAINE 1% INJ 10MG/ML (20 ML MDV) ONE (12:57)
[2024-07-30] MEDS ORDERED: PHENYLEPHRINE 10 MG/ML VIAL ONE (12:57)
--- NOTE | 2024-07-30 14:07 | P.PCN ---
Date of Procedure: 07/30/24 Operative Findings: Operative Findings: Preoperative Diagnosis: Left upper lobe nodule History of squamous cell lung cancer, post RUL lobectomy Prostate cancer Preoperative Diagnosis: Left upper lobe nodule History of squamous cell lung cancer, post RUL lobectomy Prostate cancer Procedure(s) Performed: Flexible bronchoscopy Robotic-assisted bronchoscopy and addition to radial ultrasound evaluation of the left upper lobe nodule Robotic-assisted transbronchial needle aspirate, transbronchial biopsies, transbronchial brushing of a left upper lobe pulmonary nodule in addition to a bronchioloalveolar lavage Anesthesia: NADEENA Surgeon: Myla Dinh Estimated Blood Loss (ml): 0 Pathology: other Condition: stable Disposition: same day Operative Findings: A physical exam was performed. Informed consent was obtained from the patient after explaining all the risks (pneumothorax, life threatening bleeding, infection and adverse effects due to medications), benefits and alternatives to the procedure which the patient appeared to understand and so stated. The patient was connected to the monitoring devices. General anesthesia was induced and the patient was intubated by anesthesia. A final timeout was performed and the procedure confirmed by the attending staff bronchoscopist. The bronchoscope was inserted and the airway examined. Airway examination shows that the distal trachea, Right upper lobe lobectomy stump and middle lobe and lower lobe bronchi was all within normal limits. Patient left mainstem bronchus is within normal limits. Examination of left lower lobe was within normal limits. The superior lingula and anterior segment of the left upper lobe was extrinsically compressed. Nevertheless, there was no evidence of any endobronchial lesion. The flexible bronchoscope was removed and the robotic bronchoscope was inserted. Registration was completed. I next guided the robotic bronchoscope using the navigation system into the left upper lobe apical segment. Once in proper position, the bronchoscope was frozen. The radial EBUS probe was placed through the bronchoscope and confirmed abnormal u/s images vs normal lung. A needle was placed through the working channel and under fluoroscopic guidance, we sampled the area thought to have the mass twice. We then used a cloud biopsy pattern with ultrasound confirmation for 2 additional passes with the needle. U/S evaluation was then used to reconfirm location. Forceps were next introduced through working channel and extended the appropriate distance and 3 transbronchial biopsies were performed using fluoroscopic guidance. The u/s probe was then reinserted to confirm location. When confirmed this process was repeated for a total of 8-10 transbronchial biopsies. After reassessment with EBUS, a brush was placed through the extendable working channel for 1 pass with fluoroscopic guidance. U/S evaluation was then used to confirm location. Transbronchial brushing of the left upper lobe apical nodule was done. 40ml of saline was then instilled into the area of the lesion. 10 ml of effluent from the BAL was collected. The aspirate was bloody and ultimately declotted and based on that, the sample was discarded. Flex. bronchoscope was inserted and regular suctioning was done. At the completion of the procedure, no residual secretions or bloody material within the airway. The bronchoscope was removed. The patient was extubated. FINDINGS: 1.The airways appeared normal 2 Successful navigation, ultrasonographic identification, and biopsies of left upper lobe pulmonary nodule 3.The the radial ultrasound view was initially eccentric and subsequently concentric RECOMMENDATIONS: Await pathology and cytology results The referring physician will be alerted to the results when available. The patient was advised to follow up with the referring physician with the biopsy results Patient will be called with results.
--- NOTE | 2024-07-30 14:14 | FL ---
EXAMINATION TYPE: FL bronchoscopy DATE OF EXAM: 07/30/2024 2:00 PM COMPARISON: Pre Operative Images if available both CT/MRI or plain film CLINICAL INDICATION: Male, 69 years old with history of R91.1 SOLITARY PULMONARY NODULE; TECHNIQUE: FL bronchoscopy, multiple fluoroscopic images provided for procedure. Total fluoroscopy time: 1.25 minutes Total submitted images to PACS: 3 DAP: 2.7393 mGym2 Gycm2 uGym2 cGycm2 or equivalent. FINDINGS: ION bronchoscopy images demonstrate bronchoscope terminating in the lung. No immediate complications identified, no pneumothorax identified. IMPRESSION: 1. No evidence for intraoperative complication. 2. Please see the operative/procedural note for further details. [facility], , 07/30/2024 2:12 PM
[2024-07-30 14:21] VITALS: TEMP 97.4
--- NOTE | 2024-07-30 14:34 | XR ---
EXAMINATION TYPE: XR chest 1V DATE OF EXAM: 07/30/2024 HISTORY: Left upper lobe biopsy COMPARISON: 10/09/2023 TECHNIQUE: Single view of the chest is submitted. FINDINGS: Demonstrated are scattered senescent parenchymal change. Upper lobe mass noted medially. No evidence for pneumothorax. The heart is stable. Hilar and mediastinal structures are within normal limits. Degenerative changes are seen of the dorsal spine. IMPRESSION: 1. Upper lobe mass noted medially. No evidence for pneumothorax. [facility], , 07/30/2024 2:32 PM
[2024-07-30 14:50] VITALS: RESP 16
[2024-07-30 15:20] VITALS: BP 148/77; PULSE 66
== END 2024-07-30 15:36 | disposition home or self-care (01) ==
LOC: ORWHC2ENDO 10:31
PROVIDERS: ATTEND Internal Medicine Critical Care Medicine
DX: R91.1 Solitary pulmonary nodule (principal); I10 Essential (primary) hypertension; E78.5 Hyperlipidemia, unspecified; J44.9 Chronic obstructive pulmonary disease, unspecified; M19.90 Unspecified osteoarthritis, unspecified site; Z87.891 Personal history of nicotine dependence; Z85.118 Personal history of other malignant neoplasm of bronchus and lung; Z85.46 Personal history of malignant neoplasm of prostate
CPT/HCPCS: 87798 ×3; 87496; 87498; 87529; 88108; 88305; 87502; 87634; 87070; 87205; 87116; 87102; 87206; 87635; 71045; 71250; 31628; 31629; 31623; 31624; J0330; J1100; J2710; J2405; J2003; J2704; J2371; J1596; S2900

== ENCOUNTER 2024-09-03 10:39 | Day surgery (SDC) | payer MEDICARE ==
[2024-09-01 09:51] VITALS: BMI 28.5
[~2024-09-03 10:39] MED LIST changes: -HYDROmorphone 0.5 MG/0.5 ML SYRINGE IVP PRN; -MIDAZOLAM 2 MG/2 ML VIAL IV PRN; +fentaNYL (PF) 50 MCG/ML 2 ML AMP IV PRN; -fentaNYL (PF) 50 MCG/ML 2 ML AMP IVP PRN
[2024-09-03 11:16] VITALS: TEMP 97.2
[2024-09-03] MEDS: LACTATED RINGERS 1,000 ML IV SCH (11:24)
[2024-09-03] MEDS: ONDANSETRON 4 MG/2 ML VIAL IVP PRN (11:25)
[2024-09-03] MEDS: DEXAMETHASONE SOD PHOSPHATE 4 MG/ML 1 ML VIAL IV ONE (11:25)
[2024-09-03] MEDS: IV FLUID CONTINUATION 1,000 ML IV ONE (11:27)
--- NOTE | 2024-09-03 11:29 | CT ---
EXAMINATION TYPE: CT chest wo con DATE OF EXAM: 09/03/2024 COMPARISON: 07/30/2024 CLINICAL INDICATION: Male, 69 years old with history of ION Bronch; PHH, PREOP ION TECHNIQUE: CT scan of the thorax is performed without IV contrast. CT DLP: 441.[address] CTDI: mGy Automated exposure control for dose reduction was used. FINDINGS: Stable Volume loss on the right secondary to right upper lobe lobectomy. There are stable postsurgical changes in the right hilar region. There are mild emphysematous changes in the left upper lobe. There is a cyst stable 14-15 mm spiculated left upper lobe mass highly suspicious for neoplasm. There is no definite mediastinal, hilar or axillary adenopathy. There is no pleural effusion or pneumothorax. There is a small hiatal hernia. Limited scanning through the upper abdomen reveals no gross abnormality. No focal osseous lesions are seen. IMPRESSION: 1. Stable 14-15 mm spiculated left upper lobe mass highly suspicious for neoplasm. 2. Status post right upper lobe lobectomy 3. No acute cardiopulmonary disease.. Follow-up recommendations for incidental pulmonary nodules are per [employer] or [employer]. [facility], , 09/03/2024 11:27 AM
[2024-09-03] MEDS ORDERED: SUCCINYLCHOLINE CHLORIDE 200 MG/10 ML VIAL IV ONE (12:06)
[2024-09-03] MEDS ORDERED: GLYCOPYRROLATE 0.2 MG/ML 2 ML VIAL ONE (12:06)
[2024-09-03] MEDS ORDERED: ROCURONIUM 10 MG/ML (5 ML VIAL) IV ONE (12:06)
[2024-09-03] MEDS ORDERED: LIDOCAINE 1% INJ 10MG/ML (20 ML MDV) ONE (12:06)
[2024-09-03] MEDS ORDERED: NEOSTIGMINE 1 MG/ML 10 ML VIAL ONE (12:06)
[2024-09-03] MEDS ORDERED: PHENYLEPHRINE 10 MG/ML VIAL ONE (12:06)
[2024-09-03] MEDS ORDERED: PROPOFOL 10 MG/ML 20 ML VIAL IV ONE (12:06)
[2024-09-03] MEDS ORDERED: fentaNYL (PF) 50 MCG/ML 2 ML AMP ONE (12:06)
--- NOTE | 2024-09-03 13:16 | P.PCN ---
Date of Procedure: 09/03/24 Operative Findings: Preoperative Diagnosis: Left upper lobe nodule History of squamous cell lung cancer, post RUL lobectomy Prostate cancer Preoperative Diagnosis: Left upper lobe nodule History of squamous cell lung cancer, post RUL lobectomy Prostate cancer Procedure(s) Performed: Flexible bronchoscopy Robotic-assisted bronchoscopy and addition to radial ultrasound evaluation of the left upper lobe nodule Robotic-assisted transbronchial needle aspirate, transbronchial biopsies, transbronchial brushing of a left upper lobe pulmonary nodule in addition to a bronchioloalveolar lavage Anesthesia: GOSIA Surgeon: Myla Dinh Estimated Blood Loss (ml): 0 Pathology: other Condition: stable Disposition: same day Operative Findings: A physical exam was performed. Informed consent was obtained from the patient after explaining all the risks (pneumothorax, life threatening bleeding, infection and adverse effects due to medications), benefits and alternatives to the procedure which the patient appeared to understand and so stated. The patient was connected to the monitoring devices. General anesthesia was induced and the patient was intubated by anesthesia. A final timeout was performed and the procedure confirmed by the attending staff bronchoscopist. The bronchoscope was inserted and the airway examined. Airway examination shows that the distal trachea, Right upper lobe lobectomy stump and middle lobe and lower lobe bronchi was all within normal limits. Patient left mainstem bronchus is within normal limits. Examination of left lower lobe was within normal limits. The superior lingula and anterior segment of the left upper lobe were within normal limits. There was no evidence of any endobronchial lesion. The flexible bronchoscope was removed and the robotic bronchoscope was inserted. Registration was completed. I next guided the robotic bronchoscope using the navigation system into the left upper lobe apical posterior segment. Once in proper position, the bronchoscope was frozen. The radial EBUS probe was placed through the bronchoscope and confirmed abnormal u/s images vs normal lung. A needle was placed through the working channel and under fluoroscopic guidance, we sampled the area thought to have the mass twice. We then used a cloud biopsy pattern with ultrasound confirmation for 2 additional passes with the needle. Rapid onsite evaluation of the samples were done and 2 of the passes were adequate as evaluated by pathology at the bedside. U/S evaluation was then used to reconfirm location. Forceps were next introduced through working channel and extended the appropriate distance and 2 transbronchial biopsies were performed using fluoroscopic guidance. The u/s probe was then reinserted to confirm location. When confirmed this process was repeated for a total of 8-transbronchial biopsies. After reassessment with EBUS, a brush was placed through the extendable working channel for 1 pass with fluoroscopic guidance. U/S evaluation was then used to confirm location. Transbronchial brushing of the left upper lobe apical nodule was done. 40ml of saline was then instilled into the area of the lesion. 8 ml of effluent from the BAL was collected. The aspirate was bloody and ultimately declotted and based on that, the sample was discarded. Flex. bronchoscope was inserted and regular suctioning was done. At the completion of the procedure, no residual secretions or bloody material within the airway. The bronchoscope was removed. The patient was extubated. FINDINGS: 1.The airways appeared normal 2 Successful navigation, ultrasonographic identification, and biopsies of left upper lobe pulmonary nodule 3.The the radial ultrasound view was initially eccentric and subsequently concentric RECOMMENDATIONS: Await pathology and cytology results, rapid onsite cytology evaluation was adequate. The referring physician will be alerted to the results when available. The patient was advised to follow up with the referring physician with the biopsy results Patient will be called with results. Additional CC's: Wicho Ramirez
--- NOTE | 2024-09-03 13:27 | FL ---
Fluoroscopy INDICATION: Pain FINDINGS: Fluoroscopy time: 2 minutes 36.3 seconds. Total dose area product (DAP) in uGy*m?, mGy*cm? (or similar): 3.0345 Images obtained: 3. Left bronchoscopy is evident IMPRESSION: 1. Documentation of fluoroscopy. [facility], , 09/03/2024 1:25 PM
--- NOTE | 2024-09-03 14:27 | XR ---
EXAMINATION TYPE: XR chest 1V DATE OF EXAM: 09/03/2024 1:36 PM COMPARISON: 07/30/2024 CLINICAL INDICATION: Male, 69 years old with history of Postbiopsy, post bronchoscopy TECHNIQUE: XR chest 1V view(s) obtained. FINDINGS: The heart size is normal. The pulmonary vasculature is normal. Mild increased densities in the left suprahilar region. Patient status post bronchoscopy guided biops y. No pneumothorax is identified IMPRESSION: 1. No pneumothorax post bronchoscopy. [facility], , 09/03/2024 2:25 PM
[2024-09-03 14:46] VITALS: RESP 18
[2024-09-03 15:03] VITALS: BP 160/74; PULSE 64
== END 2024-09-03 15:12 | disposition home or self-care (01) ==
LOC: ORWHC2ENDO 10:39
PROVIDERS: ATTEND Internal Medicine Critical Care Medicine
DX: C34.12 Malignant neoplasm of upper lobe, left bronchus or lung (principal); I10 Essential (primary) hypertension; E78.5 Hyperlipidemia, unspecified; J44.9 Chronic obstructive pulmonary disease, unspecified; M19.90 Unspecified osteoarthritis, unspecified site; K21.9 Gastro-esophageal reflux disease without esophagitis; Z79.51 Long term (current) use of inhaled steroids; Z79.899 Other long term (current) drug therapy; Z85.46 Personal history of malignant neoplasm of prostate; Z79.1 Long term (current) use of non-steroidal anti-inflammatories (NSAID); Z98.890 Other specified postprocedural states
CPT/HCPCS: 88108; 88305; 88342; 88341; 71045; 71250; 31628; 31629; 31623; 31624; J0330; J1100; J2710; J2405; J2003; J3010; J2704; J2371; J1596; S2900

== ENCOUNTER → 2025-02-01 | Outpatient (CLI) | payer MEDICARE ==
[2025-02-01 12:02] LABS: African American GFR (CKD) >90 (>60 ml/min/1.73 sqM); Blood Urea Nitrogen 13 mg/dL (9-20); Non-African American GFR(CKD) >90 (>60 ml/min/1.73 sqM)
--- NOTE | 2025-02-01 14:27 | CT ---
EXAMINATION TYPE: CT chest wo/w con DATE OF EXAM: 02/01/2025 COMPARISON: Prior chest CT September 03, 2024 and older studies CLINICAL INDICATION: Male, 69 years old with history of C34.12, C34.32,Z87.891, f/u nodules TECHNIQUE: CT scan of the thorax is performed following without and with IV Contrast, patient inject ed with 100 ml mL of Isovue 300. CT DLP: 1185 mGycm. Automated Exposure Control for Dose Reduction was Utilized. FINDINGS: LUNGS: [id number]-[id number] underlying emphysematous change is redemonstrated. Linear scarring in the pos terior medial left upper lobe is not present. No suspicious residual nodule identified at this level. Mild Bibasilar linear scarring and/or atelectasis is redemonstrated. No new nodules or masses. Postt reatment changes right hilar region extending anteriorly and superiorly is redemonstrated. HEART: Size within normal limits. Moderate to severe coronary artery calcification is redemonstrated MEDIASTINUM: There are no new greater than 1 cm mediastinal lymph nodes. No pericardial effusion is seen. OTHER: Small sized hiatal hernia is redemonstrated. Scoliotic curvature is present with multilevel sp urring in the thoracic spine redemonstrated. IMPRESSION: [id number] underlying emphysematous change redemonstrated. Marked improved or resol navdeep medial left upper lobe 1.6 cm spiculated nodule with some linear and slightly thickened nodular scarring at this level on current study. No new suspicious masses or adenopathy seen. [facility], , 02/01/2025 2:24 PM
== END | disposition home or self-care (01) ==
LOC: RADCTMAIN 11:01
PROVIDERS: ATTEND Radiology Radiation Oncology
DX: C34.12 Malignant neoplasm of upper lobe, left bronchus or lung (principal); C34.32 Malignant neoplasm of lower lobe, left bronchus or lung; J43.9 Emphysema, unspecified; Z87.891 Personal history of nicotine dependence
CPT/HCPCS: 82565; 84520; 71270; 36415; Q9967

== ENCOUNTER → 2025-05-04 | Outpatient (CLI) | payer MEDICARE ==
--- NOTE | 2025-05-04 12:24 | CT ---
EXAMINATION TYPE: CT chest wo con DATE OF EXAM: 05/04/2025 11:49 AM COMPARISON: CT 02/01/2025. CLINICAL INDICATION: Male, 70 years old with history of C34.12; PHH, Malignant neoplasm of left upper lobe. TECHNIQUE: Multiple axial images were obtained through the chest. Sagittal and coronal reformats were created for review. MIP was performed on a separate workstation. Contrast used: mL of (None if empty) Oral contrast used: (None if empty) CT DLP: 458.9 mGycm, Automated exposure control for dose reduction was used. FINDINGS: LUNGS/ PLEURA: No focal consolidation, pneumothorax or pleural effusion. Postsurgical changes right u pper lobe stable morphology to the lung parenchyma. No new or enlarging pulmonary nodules. No soft ti ssue in the surgical bed. Mild emphysema changes. Emphysema superimposed on some likely opacified lar ge airways with atelectasis noted in the medial aspect of the left upper lung AIRWAY: Patent and unremarkable. HEART: Size within normal limits. Moderate coronary artery calcifications present. Thickening and ca lcification of aortic valve present. MEDIASTINUM: No gross evidence of adenopathy. Small hiatal hernia. VASCULATURE: No aortic aneurysm. MUSCULOSKELETAL: Moderate disc degeneration changes are present throughout the thoracolumbar spine se condary to osteophyte formation and facet joint arthropathy. SOFT TISSUES/LYMPH NODES: Unremarkable. LOWER NECK: No significant findings. UPPER ABDOMEN: No significant findings. IMPRESSION: 1. Stable postsurgical changes to the right upper lobe. No new or enlarging soft tissue visualized. Continued surveillance recommended. 2. Moderate severe degeneration changes of the spine. 3. Haan-lw-qydjjwpw emphysema changes. Superimposed left upper lobe medial scarring and/or atelectas is noted. Attention on follow up imaging. [facility], , 05/04/2025 12:21 PM
== END | disposition home or self-care (01) ==
LOC: RADCTMAIN 11:20
PROVIDERS: ATTEND Radiology Radiation Oncology
DX: C34.12 Malignant neoplasm of upper lobe, left bronchus or lung (principal); J43.9 Emphysema, unspecified; Z98.890 Other specified postprocedural states; J98.4 Other disorders of lung
CPT/HCPCS: 71250